=== PATIENT | male | born 1965 | race Caucasian/White ===

== ENCOUNTER 2017-03-24 18:42 | Emergency (ER) | payer OTHER ==
[~2017-03-24] VITALS: Ht 172.7 cm; Wt 98.3 kg
[~2017-03-24 18:42] MED LIST: AFRINWC; ALBUAER2 INH; ASPI81TA21 PO; BACL1TAB PO; DULO60CA44 PO; FLUT110A INH; FLV1 PO; INSDGIPEN SC; LPT40 PO; LSN40 PO; MAGNSUS5 PO; MORP1TAB11 PO; MULT-506 PO; NRV/10 PO; NVLGIPEN SC; OXYC-106 PO; OXYC-88 PO; PRT40 PO; SERT100T PO; THM50 PO
[2017-03-24 18:59] VITALS: TEMP 37; Ht 172.7 cm; Wt 98.3 kg
[2017-03-24] MEDS ORDERED: FLVHFA110 INH (19:20)
[2017-03-24] MEDS ORDERED: SITA25TA PO (19:20)
[2017-03-24] MEDS ORDERED: INSDGIPEN SC (19:20)
[2017-03-24] MEDS ORDERED: VNTHFA/IN INH (19:20)
[2017-03-24] MEDS ORDERED: MOML PO (19:20)
[2017-03-24] MEDS ORDERED: FOLI1TAB7 PO (19:20)
[2017-03-24] MEDS ORDERED: THIA1TAB11 PO (19:20)
[2017-03-24] MEDS ORDERED: PANT40TA PO (19:20)
--- NOTE | 2017-03-24 19:36 | DIAGNOSTIC IMAGING REPORT ---
LEFT KNEE 3 VIEWS HISTORY: L knee pain COMPARISON: None. FINDINGS: There is no fracture or dislocation. Mild cartilage space narrowing within the medial compartment of the knee. Chondrocalcinosis. Trace knee effusion. Small tricompartmental marginal osteophytes. No radiopaque foreign bodies. IMPRESSION: 1. No fractures. 2. Mild osteoarthritis. 3. Chondrocalcinosis. 4. Trace knee effusion. Electronically signed by: David Camacho M.D. 03/24/2017 7:34 PM Dictated Date/Time: 03/24/2017 7:33 PM
[2017-03-24] MEDS ORDERED: OXYCODONE/ACETAMINOPHEN 5-325 TAB PO STA (20:54)
--- NOTE | 2017-03-24 22:21 | DIAGNOSTIC IMAGING REPORT ---
LEFT LOWER EXTREMITY VENOUS DOPPLER HISTORY: L knee pain radiation in lower leg; lower leg cramping COMPARISON STUDY: None. FINDINGS: There is normal compressibility, flow, and augmentation within the left lower extremity deep venous system. IMPRESSION: No DVT within the left lower extremity. Electronically signed by: David Camacho M.D. 03/24/2017 10:20 PM Dictated Date/Time: 03/24/2017 10:19 PM
[2017-03-24 22:55] VITALS: BP 136/82; PULSE 76; O2SAT 99
--- NOTE | 2017-03-29 07:39 | EMERGENCY ROOM VISIT NOTE ---
ED Visit Note First contact with patient: 19:03 Chief Complaint: Left knee pain. History of Present Illness: Mr. Martin is a 51-year-old white male who ambulates into the ED complaining of diffuse left knee pain. Historically patient reports he had meniscus surgery performed on his left knee multiple years ago. Patient reports for the last 3-4 weeks he has been having diffuse left knee pain. He has not sought medical attention for his pain. He denies any precipitating traumatic events. Then throughout today he reports his pain increased in intensity; this prompted his ED visit. Currently he places his discomfort over the anterior, lateral and medial portions of the knee. He describes it as a deep achy sensation that becomes sharp with palpation and flexion. He rates his discomfort 8/10. The pain is nonradiating. He reports he has not taken any medications for pain prior to arrival at the hospital today but reports he has been intermittently using over- the-counter NSAIDs without relief of his discomfort. Associated with his pain he also reports he has some pain over the proximal gastrocnemius muscle. He denies any associated symptoms including hip pain, thigh pain, ankle pain, foot weakness/numbness/tingling, skin eruptions, skin color changes, fevers, chills, sweats. Review of Systems: As noted above in history of present illness. 8 body systems were reviewed and found to be negative as noted above. Past Medical History: (1) Anxiety (2) Asthma (3) Benign hypertension (4) Cervical Disk Disease s/p Cervical Fusion (5) Chronic back pain (6) CHRONIC PAIN SYNDROME (7) COPD (chronic obstructive pulmonary disease) (8) Diabetes mellitus type 2 (9) DKA (diabetic ketoacidoses) (10) Gastroesophageal reflux disease (11) Hyperlipidemia (12) Hypersomnia with sleep apnea (13) Major depressive disorder Surgical Problems: (1) H/O colonoscopy (2) H/O hernia repair (3) H/O knee surgery (4) H/O shoulder surgery (5) History of appendectomy (6) History of carpal tunnel surgery Current Medications: Medications Dose Route/Sig Max Daily Dose Days Date Category Januvia (Sitagliptin) Unknown Strength Tab Unknown Dose PO DAILY 03/24/17 Reported Vitamin B1 (Thiamine Mononitrate) 100 Mg Tab 50 Mg PO QAM 03/24/17 Reported Protonix (Pantoprazole Sodium) 40 Mg Tab 40 Mg PO QAM 03/24/17 Reported Folvite (Folic Acid) 1 Mg Tab 1 Tab PO QAM 90 03/24/17 Reported Lantus Solostar (Insulin Glargine) 100 Unit/Ml Inj 35 Units SC QPM 03/24/17 Reported Milk Of Magnesia (Magnesium Hydroxide) 30 Ml Susp 30 Ml PO DAILY PRN 03/24/17 Reported Flovent Hfa (Fluticasone Propionate) 120 Puffs/83961 Mcg Aero 1 Puff INH BID 30 03/24/17 Reported Ventolin Hfa (Albuterol) 200 Puffs/45843 Mcg Aers 2 Puffs INH Q4H PRN 03/24/17 Reported Afrin 0.05% Nasal [place] (Oxymetazoline Hcl) 1 Btl [place] 1 Btl NA HS 04/06/16 Reported Lioresal (Baclofen) 10 Mg Tab 20 Mg PO HS PRN 04/06/16 Reported Zoloft (Sertraline Hcl) 100 Mg Tab 50 Mg PO DAILY 04/06/16 Reported Cymbalta (Duloxetine Hcl) 60 Mg Cap 1 Cap PO DAILY 90 04/06/16 Reported Morphine Sulfate Er (Morphine Sulfate) 15 Mg Tab 15 Mg PO Q12 04/06/16 Reported Atorvastatin Calcium (Atorvastatin) 40 Mg Tab 40 Mg PO QPM 04/06/16 Reported Lisinopril 40 Mg Tab 40 Mg PO DAILY 04/06/16 Reported Amlodipine Besylate 10 Mg Tab 10 Mg PO DAILY 04/06/16 Reported Oxycodone/Acetaminophen 10MG/325MG 1 Tab Tab 1 Tab PO QPM PRN 04/06/16 Reported Multivitamin (Multivitamins) Tab 1 Tab PO DAILY 07/20/15 Reported Percocet 10MG/325MG (Oxycodone/Acetaminophen) Tab 1 Tab PO AFTERNOON PRN 07/20/15 Reported Percocet 10MG/325MG (Oxycodone/Acetaminophen) Tab 2 Tabs PO QAM PRN 07/20/15 Reported Ecotrin Or Generic (Aspirin) 81 Mg Tab 81 Mg PO DAILY 12/01/12 Reported Allergies to Medications: Pregabalin, iodinated diagnostic agents. Social History: Patient is not employed; he feels safe in his home environment; he denies tobacco use; he admits to alcohol use. Physical Examination: Vital Signs: Date Time Temp Pulse Resp B/P Pulse Ox O2 Delivery O2 Flow Rate FiO2 03/24/17 22:55 76 16 136/82 99 03/24/17 20:39 98 16 117/64 96 Room Air 03/24/17 18:59 37.0 110 20 149/82 96 Room Air GENERAL: 51-year-old male in mild to moderate distress due to pain, nontoxic- appearing, afebrile and hemodynamically stable. NEUROLOGICAL: Awake, alert and oriented to person, place and time. Answering questions appropriately and following commands. Normal gait. Good hand eye coordination. No focal motor sensory deficits. SKIN: Warm, dry and pink. No soft tissue eruptions or trauma noted. LEFT LOWER LEG: No gross bony deformity. No tenderness over the hip, thigh, ankle or foot. Mild tenderness with swelling over the anterior aspect of the knee. Negative ballottement test. Negative patellar apprehension test. No laxity of the collateral or cruciate ligaments. Decreased range of motion in flexion to less than 90. Loretta's test was attempted but I did not feel was accurate. I do not feel any clicking and popping but he was not able to relax during the test. There is mild tenderness in the gastrocnemius but I do not appreciate any swelling or ecchymosis. No calf tenderness or cords. Full range of motion and muscle strength in plantar flexion and dorsiflexion of the ankles. Distal neurovascular statuses are intact and equal bilaterally. ED Course: Patient is assessed as noted above. Left Knee X-Rays: Were read by myself and the radiologist showing no acute fractures or dislocations, mild osteoarthritis, chondrocalcinosis and a trace knee effusion. Left Lower Leg Venous Doppler Ultrasound: Was reviewed by myself and read by the radiologist showing no deep vein thrombus. Patient was given 2 Percocet 5/325 mg tablets by mouth for pain. Patient was placed in a knee immobilizer and instructed on nonweight bearing crutch use. Patient was educated about tonight's findings and instructed on his treatment plan; he verbalizes understanding and agreement with this plan. Clinical Impression: Left knee pain. Disposition: Patient discharged home in stable condition accompanied by his ; prior to departure he was reassessed and subjectively reported he was feeling better and rated his discomfort 2/10. Plan: I did review the patient's medical record list and he was on double narcotic prescriptions so encouraged him to use his current prescriptions as needed for pain. Additionally patient was encouraged use ice for pain and swelling and the knee immobilizer and crutches for nonweightbearing ambulation. Patient was encouraged to follow-up with pre certification specialist if no better in 7 -10 days. Patient was encouraged return ED for worsening/uncontrolled pain, uncontrolled swelling, leg weakness/numbness/tingling or any new/concerning symptoms.
== END 2017-03-24 22:56 | disposition home or self-care (01) ==
LOC: C.EDB 18:42 → C.EDD 22:56
DX: M25.562 Pain in left knee (principal); F41.9 Anxiety disorder, unspecified; J45.909 Unspecified asthma, uncomplicated; I10 Essential (primary) hypertension; M50.90 Cervical disc disorder, unspecified, unspecified cervical region; G89.4 Chronic pain syndrome; J44.9 Chronic obstructive pulmonary disease, unspecified; E11.9 Type 2 diabetes mellitus without complications; K21.9 Gastro-esophageal reflux disease without esophagitis; E78.5 Hyperlipidemia, unspecified; G47.10 Hypersomnia, unspecified; G47.30 Sleep apnea, unspecified; F32.9 Major depressive disorder, single episode, unspecified; Z79.4 Long term (current) use of insulin; Z79.82 Long term (current) use of aspirin; Z79.899 Other long term (current) drug therapy

== ENCOUNTER → 2017-04-13 | Outpatient (CLI) | payer OTHER ==
[~2017-04-13] MED LIST changes: -ALBUAER2 INH; +CEPH500C2 PO; +FENT75DI2 TOP; -FLUT110A INH; -FLV1 PO; +FLVHFA110 INH; +FOLI1TAB7 PO; +HYDR-5688 PO; -MAGNSUS5 PO; +MOML PO; -NVLGIPEN SC; +PANT40TA PO; +POLY1POW2 PO; -PRT40 PO; +SITA25TA PO; +SULF800T23 PO; +THIA1TAB11 PO; -THM50 PO; +VNTHFA/IN INH
[2017-04-13 19:58] LABS: SYNOVIAL FLUID APPEARANCE CLOUDY; SYNOVIAL FLUID COLOR YELLOW; SYNOVIAL FLUID MONONUC RELAT 70.3 %; SYNOVIAL FLUID POLYNUC RELAT 29.7 %
== END | disposition home or self-care (01) ==
LOC: C.LAB 18:11
PROVIDERS: ATTEND Physician Assistant
DX: M25.562 Pain in left knee (principal)

== ENCOUNTER 2017-06-26 11:48 | Emergency (ER) | payer OTHER ==
[~2017-06-26] VITALS: Ht 172.7 cm; Wt 111.8 kg
[~2017-06-26 11:48] MED LIST changes: -CEPH500C2 PO; -FENT75DI2 TOP; -HYDR-5688 PO; -POLY1POW2 PO; -SULF800T23 PO
[2017-06-26 11:52] VITALS: TEMP 36.8; Ht 172.7 cm; Wt 111.8 kg
[2017-06-26] MEDS ORDERED: CEFTRIAXONE SOD INJ 1 GM ADDVIAL IV STA (12:13)
[2017-06-26] MEDS ORDERED: KETOROLAC TROMETHAMINE 30 MG/ML VIAL IV STA (12:13)
[2017-06-26] MEDS ORDERED: FENT75DI2 TOP (12:22)
[2017-06-26] MEDS ORDERED: POLY1POW2 PO (12:22)
[2017-06-26 12:43] LABS: BASO % 0.3 %; BASO ABS # 0.03 K/uL (0-0.2); COMPLETE YES; EOS % 1.4 %; HEMATOCRIT 36.4 % (42-52); IG% 0.3 %; LYMPH ABS # 1.81 K/uL (1.2-3.4); MEAN CELL VOLUME 91.7 fL (80-100); MEAN CORPUSCULAR HEMOGLOBIN 32.2 pg (25-34); MEAN CORPUSCULAR HGB CONC 35.2 g/dl (32-36); MONO % 7.6 %; NEUT % 73.4 %; PLATELET COUNT 173 K/uL (130-400); RED BLOOD COUNT 3.97 M/uL (4.7-6.1); WHITE BLOOD COUNT 10.62 K/uL (4.8-10.8)
[2017-06-26 12:59] LABS: BUN/CREATININE RATIO 19.1 (10-20); CREATININE 1.1 mg/dl (0.60-1.40)
--- NOTE | 2017-06-26 13:09 | DIAGNOSTIC IMAGING REPORT ---
CT FACIAL BONES-MXILLOFAC WITHOUT CT DOSE: 315.56 mGy.cm CLINICAL HISTORY: Right-sided facial cellulitis. Swelling. COMPARISON STUDY: No previous studies for comparison. TECHNIQUE: Helical images were acquired in the transverse plane. The study was reviewed and analyzed on the independent 3-D workstation. A dose lowering technique was utilized adhering to the principles of ALARA. The study was performed without intravenous contrast due to a contrast allergy. There is a prominent intraparotid lymph node on the right. No mucosal space masses are visualized on this noncontrast study. There is scattered nonpathologically enlarged cervical lymph nodes. There is skin thickening in the right periauricular region. There are no fluid collections to indicate an abscess. No fractures are visualized. No destructive lesions are evident. The mastoid air cells are well aerated. The middle ear cavities appear well aerated. The frontal sinuses appear well aerated. There is mild bilateral maxilla sinus mucosal thickening. There is opacification of a single left-sided ethmoid air cell There is mild adenoidal hypertrophy IMPRESSION: 1. Right-sided periauricular skin thickening and subcutaneous edema, consistent with the clinical history of cellulitis. No evidence of abscess on this noncontrast study. 2. Mild adenoidal hypertrophy Electronically signed by: Gm Montesinos M.D. 06/26/2017 1:08 PM Dictated Date/Time: 06/26/2017 1:03 PM
--- NOTE | 2017-06-26 13:19 | EMERGENCY ROOM VISIT NOTE ---
ED Visit Note First contact with patient: 12:02 I have personally seen and evaluated the patient with the physician purchasing assistant. I agree with the diagnostic/management decisions and have personally been involved in these decisions and agree with the diagnosis.
[2017-06-26] MEDS ORDERED: HYDR-5688 PO (13:29)
[2017-06-26] MEDS ORDERED: CEPH500C2 PO (13:29)
[2017-06-26] MEDS ORDERED: SULF800T23 PO (13:29)
--- NOTE | 2017-06-26 13:30 | EMERGENCY ROOM VISIT NOTE ---
History First contact with patient: 12:02 Chief Complaint: INFECTION Stated Complaint: INFECTION Nursing Triage Summary: right facial redness/edema. History of Present Illness The patient is a 52 year old male who presents to the Emergency Room with complaints of infection on the right side of his face. The patient states for 5 days ago he noticed a pimple behind his right ear. He states he got a little bit larger and started draining so he was squeezing it. The patient states that it has slowly gotten larger and now he has swelling to his face. The patient denies any fever. The patient denies any history of MRSA but he has a grandson who had MRSA in the past. The patient is diabetic which is why he came to the emergency room. Review of Systems 10 system review was performed and was negative unless stated otherwise history of present illness. Past Medical/Surgical History Medical Problems: (1) Anxiety (2) Asthma (3) Benign hypertension (4) Cervical Disk Disease s/p Cervical Fusion (5) Chronic back pain (6) CHRONIC PAIN SYNDROME (7) COPD (chronic obstructive pulmonary disease) (8) Diabetes mellitus type 2 (9) DKA (diabetic ketoacidoses) (10) Gastroesophageal reflux disease (11) Hyperlipidemia (12) Hypersomnia with sleep apnea (13) Major depressive disorder Surgical Problems: (1) H/O colonoscopy (2) H/O hernia repair (3) H/O knee surgery (4) H/O shoulder surgery (5) History of appendectomy (6) History of carpal tunnel surgery Family History Diabetes mellitus FH: heart disease Hypertension Kidney disease Kidney stones Social History Smoking Status: Former Smoker Alcohol Use: occasionally Drug Use: none Marital Status: Housing Status: lives with significant other Occupation Status: disabled Current/Historical Medications Scheduled Amlodipine Besylate (Amlodipine Besylate), 10 MG PO DAILY Aspirin Enteric Coated (Ecotrin Or Generic), 81 MG PO DAILY Atorvastatin (Atorvastatin Calcium), 40 MG PO QPM Duloxetine Hcl (Cymbalta), 1 CAP PO DAILY Fluticasone Propionate (Flovent Hfa), 1 PUFF INH BID Folic Acid (Folvite), 1 TAB PO QAM Insulin Glargine (Lantus Solostar), 35 UNITS SC QPM Lisinopril (Lisinopril), 40 MG PO DAILY Multivitamin (Multivitamin), 1 TAB PO DAILY Oxymetazoline Hcl (Afrin 0.05% Nasal [place]), 1 BTL NA HS Pantoprazole (Protonix), 40 MG PO QAM Polyethylene Glycol 3350 (Bulk (Polyethylene Glycol 3350), 17 GM PO DAILY Sertraline Hcl (Zoloft), 50 MG PO DAILY Thiamine Mononitrate (Vitamin B1), 50 MG PO QAM Scheduled PRN Albuterol Hfa (Ventolin Hfa), 2 PUFFS INH Q4H PRN for Wheezing Baclofen (Lioresal), 20 MG PO HS PRN for Muscle Spasms Oxycodone/Acetaminophen 10MG/325MG (Percocet 10MG/325MG), 2 TABS PO QAM PRN for Pain Oxycodone/Acetaminophen 10MG/325MG (Percocet 10MG/325MG), 1 TAB PO AFTERNOON PRN for Pain Oxycodone/Acetaminophen 10MG/325MG (Oxycodone/Acetaminophen 10MG/325MG), 1 TAB PO QPM PRN for Pain Miscellaneous Medications Fentanyl (Fentanyl), 25 MCG TOP Physical Exam Vital Signs Date Time Temp Pulse Resp B/P (MAP) Pulse Ox O2 Delivery O2 Flow Rate FiO2 06/26/17 11:52 36.8 93 18 154/82 94 Room Air Physical Exam GENERAL: 52-year-old obese male appears in no acute distress. MENTAL Status: Oriented 3. EARS: Canals clear. TMs without fluid level noted. NECK: Supple, anterior cervical lymphadenopathy noted. Right submandibular lymphadenopathy noted. No carotid bruits noted. FACE: The patient has swelling to the left preauricular area extending over the angle of the mandible, minimal erythema noted. LUNGS: Clear auscultation without wheezes rales or rhonchi. CARDIAC: Regular rate and rhythm with occasional ectopy. Pulses is full and equal throughout. Medical Decision & Procedures ER Provider Diagnostic Interpretation: CT FACIAL BONES-MXILLOFAC WITHOUT CT DOSE: 315.56 mGy.cm CLINICAL HISTORY: Right-sided facial cellulitis. Swelling. COMPARISON STUDY: No previous studies for comparison. TECHNIQUE: Helical images were acquired in the transverse plane. The study was reviewed and analyzed on the independent 3-D workstation. A dose lowering technique was utilized adhering to the principles of ALARA. The study was performed without intravenous contrast due to a contrast allergy. There is a prominent intraparotid lymph node on the right. No mucosal space masses are visualized on this noncontrast study. There is scattered nonpathologically enlarged cervical lymph nodes. There is skin thickening in the right periauricular region. There are no fluid collections to indicate an abscess. No fractures are visualized. No destructive lesions are evident. The mastoid air cells are well aerated. The middle ear cavities appear well aerated. The frontal sinuses appear well aerated. There is mild bilateral maxilla sinus mucosal thickening. There is opacification of a single left-sided ethmoid air cell There is mild adenoidal hypertrophy IMPRESSION: 1. Right-sided periauricular skin thickening and subcutaneous edema, consistent with the clinical history of cellulitis. No evidence of abscess on this noncontrast study. 2. Mild adenoidal hypertrophy Electronically signed by: Gm Montesinos M.D. 06/26/2017 1:08 PM Dictated Date/Time: 06/26/2017 1:03 PM Laboratory Results 06/26/17 12:25 Red Blood Count 3.97, Mean Corpuscular Volume 91.7, Mean Corpuscular Hemoglobin 32.2, Mean Corpuscular Hemoglobin Concent 35.2, Mean Platelet Volume 9.0, Neutrophils (%) (Auto) 73.4, Lymphocytes (%) (Auto) 17.0, Monocytes (%) (Auto) 7.6, Eosinophils (%) (Auto) 1.4, Basophils (%) (Auto) 0.3, Neutrophils # (Auto) 7.79, Lymphocytes # (Auto) 1.81, Monocytes # (Auto) 0.81, Eosinophils # (Auto) 0.15, Basophils # (Auto) 0.03 06/26/17 12:25 Test 06/26/17 12:25 White Blood Count 10.62 K/uL (4.8-10.8) Red Blood Count 3.97 M/uL (4.7-6.1) Hemoglobin 12.8 g/dL (14.0-18.0) Hematocrit 36.4 % (42-52) Mean Corpuscular Volume 91.7 fL (80-100) Mean Corpuscular Hemoglobin 32.2 pg (25-34) Mean Corpuscular Hemoglobin Concent 35.2 g/dl (32-36) Platelet Count 173 K/uL (130-400) Mean Platelet Volume 9.0 fL (7.4-10.4) Neutrophils (%) (Auto) 73.4 % Lymphocytes (%) (Auto) 17.0 % Monocytes (%) (Auto) 7.6 % Eosinophils (%) (Auto) 1.4 % Basophils (%) (Auto) 0.3 % Neutrophils # (Auto) 7.79 K/uL (1.4-6.5) Lymphocytes # (Auto) 1.81 K/uL (1.2-3.4) Monocytes # (Auto) 0.81 K/uL (0.11-0.59) Eosinophils # (Auto) 0.15 K/uL (0-0.5) Basophils # (Auto) 0.03 K/uL (0-0.2) RDW Standard Deviation 45.4 fL (36.4-46.3) RDW Coefficient of Variation 13.7 % (11.5-14.5) Immature Granulocyte % (Auto) 0.3 % Immature Granulocyte # (Auto) 0.03 K/uL (0.00-0.02) Anion Gap 8.0 mmol/L (3-11) Est Creatinine Clear Calc Drug Dose 95.3 ml/min Estimated GFR () 89.0 Estimated GFR (Non- 76.8 BUN/Creatinine Ratio 19.1 (10-20) Calcium Level 9.0 mg/dl (8.5-10.1) Medications Administered Medications (Trade) Dose Ordered Sig/Enzo Route Start Time Stop Time Status Last Admin Dose Admin Ceftriaxone Sodium (Rocephin Inj) 1 gm NOW STAT IV 06/26/17 12:13 06/26/17 12:17 DC 06/26/17 12:32 1 GM Ketorolac Tromethamine (Toradol Inj) 30 mg NOW STAT IV 06/26/17 12:13 06/26/17 12:17 DC 06/26/17 12:32 30 MG ED Course The patient was evaluated. The patient's EMR medication list were reviewed. IV access was obtained. The patient was given Toradol 30 mg IV and Rocephin 1 g IV. CBC and differential and renal profile was ordered. CT of the facial bones was ordered without IV contrast since he is allergic to IV contrast. CT was interpreted by the radiologist with cellulitis of the right preauricular area without any evidence of osteomyelitis or abscess. The patient was informed of the findings. He is also informed that his labs revealed slight anemia but otherwise were unremarkable. The patient wasn't apparently evaluated by Dr. Marroquin who agree with treatment plan. The patient was discharged home in stable condition. Medical Decision Differential diagnosis include facial cellulitis, osteomyelitis, abscess Impression Primary Impression: Facial cellulitis Additional Impression: Anemia Departure Information Dispostion Home / Self-Care Condition GOOD Prescriptions Hydrocodone/Acetaminophen 5MG/325MG ([place] 5MG/325MG) Tab 1-2 TABLET PO Q6 Y for Pain, #20 TAB For Initial Treatment Prov: Anu Burleson PA-C 06/26/17 Cephalexin Monohydrate (KEFLEX) 500 Mg Cap 500 MG PO QID for 10 Days, #40 CAP Prov: Anu Burleson PA-C 06/26/17 Sulfa/Trimethoprim (Bactrim Ds 800MG/160MG) Tab 1 TAB PO BID for 10 Days, #20 TAB Prov: Anu Burleson PA-C 06/26/17 Referrals Gonzalez Salmeron M.D. (MEDICAL) (PCP) Forms HOME CARE DOCUMENTATION FORM, IMPORTANT VISIT INFORMATION, WORK / SCHOOL INSTRUCTIONS Patient Instructions Anemia, Cellulitis - [facility], [facility] Additional Instructions Ibuprofen 600 mg every 6 hours with food for pain. Take Kamiah as needed for more severe pain. Do not drive while taking the Kamiah. Take Keflex and Bactrim as prescribed. Warm compresses to the affected area intermittently to promote draining. Follow-up with your family doctor in 2 days for recheck and also to address your anemia. If symptoms worsen in the interim, return to ER. Problem Qualifiers Additional Impression: Anemia Anemia type: unspecified type Qualified Codes: D64.9 - Anemia, unspecified
[2017-06-26 13:51] VITALS: BP 152/73; PULSE 90; O2SAT 97
== END 2017-06-26 13:53 | disposition home or self-care (01) ==
LOC: C.EDB 11:48 → C.EDC 13:53
DX: L03.211 Cellulitis of face (principal); D64.9 Anemia, unspecified; E11.9 Type 2 diabetes mellitus without complications; Z79.4 Long term (current) use of insulin; I10 Essential (primary) hypertension; E78.5 Hyperlipidemia, unspecified; J44.9 Chronic obstructive pulmonary disease, unspecified; Z79.899 Other long term (current) drug therapy

== ENCOUNTER → 2018-03-02 | Outpatient (CLI) | payer OTHER ==
[~2018-03-02] MED LIST changes: +FENT75DI2 TOP; -FOLI1TAB7 PO; +FOLI1TAB8 PO; -MOML PO; -MORP1TAB11 PO; +POLY1POW2 PO; -SITA25TA PO
== END | disposition home or self-care (01) ==
LOC: C.LAB 19:08
DX: Z02.83 Encounter for blood-alcohol and blood-drug test (principal)

== ENCOUNTER 2019-05-05 11:36 | Inpatient (IN) ==
--- OUTSIDE RECORDS SUMMARY | 2019-05-05 11:39 | External Medical Summary | Continuity of Care Document ---
:1965 Author Name Wu Ureña Address Unavailable Unavailable , Care Team Providers Name Role Phone Jaswinder Galvan M.D. Unavailable [email or web address] Unavailable Unavailable Unavailable Unavailable Unavailable Problems Active medical history not documented Allergies and Adverse Reactions Allergy history not documented Medications Medications not documented Procedures Procedures not documented Immunizations Immunizations not documented Plan of Treatment Planned Observations Planned Goals not documented Results No Known Results Results not documented
[2019-05-05] MEDS ORDERED: NALOXONE HCL 0.4 MG/1 ML VIAL/CARP IV STA ×2 (11:51→12:27)
--- NOTE | 2019-05-05 12:24 | XRay Report ---
SINGLE VIEW CHEST CLINICAL HISTORY: Sepsis. FINDINGS: An AP, portable, upright chest radiograph is compared to study dated 04/06/2016. The examina tion is degraded by portable technique and patient rotation. The cardiomediastinal silhouette is unr emarkable. There is elevation of the right hemidiaphragm and bibasilar atelectasis. No large pleural effusion or pneumothorax is seen. The skeletal structures are osteopenic. The bony thorax is grossly intact. Fusion hardware is noted in the lower cervical spine. IMPRESSION: 1. There is no acute cardiopulmonary abnormality. 2. Elevation of the right hemidiaphragm and bibasilar atelectasis. Electronically signed by: Tate Ta M.D. 05/05/2019 12:22 PM
[2019-05-05 13:02] LABS: Basophils # (auto) 0.03 K/uL (0-0.2); Basophils % (auto) 0.3 %; Eosinophils # (auto) 0.09 K/uL (0-0.5); Eosinophils % (auto) 0.8 %; Hematocrit (blood only) 34.3 % (42-52); Immature Granulocytes # (auto) 0.06 K/uL (0.00-0.02); Immature Granulocytes % (auto) 0.5 %; Lymphocytes % (auto) 21.3 %; Mean Corpuscular Volume 92.2 fL (80-100); Mean Platelet Volume 9.2 fL (7.4-10.4); Monocytes # (auto) 1.01 K/uL (0.11-0.59); Monocytes % (auto) 8.6 %; Neutrophils # (auto) 8.03 K/uL (1.4-6.5); Neutrophils % (auto) 68.5 %; Platelet Count 134 K/uL (130-400); RDW Coefficient of Variation 14.7 % (11.5-14.5); RDW Standard Deviation 49.9 fL (36.4-46.3); Red Blood Count 3.72 M/uL (4.7-6.1); White Blood Count 11.72 K/uL (4.8-10.8)
[2019-05-05 13:06] LABS: Base Excess VBG -16.9 mEq/L; Oxygen Saturation VBG 75.3 %; pH VBG 7.17 (7.36-7.41)
[2019-05-05 13:12] LABS: INR 1.1 (0.9-1.1); Partial Thromboplastin Ratio 1.3; Partial Thromboplastin Time 34.5 Seconds (21.0-31.0); Prothrombin Time 10.8 Seconds (9.0-12.0)
[2019-05-05 13:34] LABS: Acetaminophen < 2 ug/ml (10-30); Salicylate 2.7 mg/dl (2.8-20)
--- NOTE | 2019-05-05 13:36 | CT Scan Report ---
CT head/brain wo con CLINICAL HISTORY: 54 years-old Male with alatered. Acutely altered mental status TECHNIQUE: Multiple axial CT images of the head were obtained without contrast. A dose lowering tech nique was utilized adhering to the principles of ALARA. CT DOSE: 1459.56 mGycm COMPARISON: None. FINDINGS: Motion degraded exam. No acute intracranial hemorrhage, midline shift, intracranial mass, hydrocephal us, territorial ischemia or abnormal extra-axial collection. Minimal cerebral vascular calcifications are noted. The calvarium is intact. Minimal mucosal thickening of the ethmoid and maxillary sinuses. Mastoid ai r cells are clear. Soft tissues and orbits are unremarkable. IMPRESSION: Motion degraded exam. No acute intracranial abnormality identified. The above report was generated using voice recognition software. It may contain grammatical, syntax o r spelling errors. Electronically signed by: Suijt Le M.D. 05/05/2019 1:35 PM
[2019-05-05 13:39] LABS: Alanine Aminotransferase 118 U/L (12-78); Albumin Globulin Ratio 0.7 (0.9-2); Albumin Level 3.6 gm/dl (3.4-5.0); Alkaline Phosphatase 94 U/L (45-117); Aspartate Aminotransferase 262 U/L (15-37); BUN Creatinine Ratio 7.8 (10-20); Bilirubin,Total 0.9 mg/dl (0.2-1); Blood Urea Nitrogen 105 mg/dl (7-18); C Reactive Protein 9.37 mg/dl (0-0.29); Calcium 5.4 mg/dl (8.5-10.1); Carbon Dioxide 11 mmol/L (21-32); Chloride 90 mmol/L (98-107); Creatine Kinase MB 91.1 ng/ml (0.5-3.6); Creatinine Clr Calc Pharmacy 7.3 ml/min; Est GFR (African American) 4.3; Est GFR (Non-African American) 3.7; Globulin 5.1 gm/dl (2.5-4.0); Glucose 152 mg/dl (70-99); Potassium 6.5 mmol/L (3.5-5.1); Sodium 126 mmol/L (136-145); Total Protein 8.7 gm/dl (6.4-8.2); Troponin I < 0.015 ng/ml (0-0.045)
[2019-05-05] MEDS ORDERED: CALCIUM GLUCONATE 10% 1,000 MG in SODIUM CHLORIDE 0.9% 50 ML IV STA ×2 (13:40→20:58)
[2019-05-05] MEDS ORDERED: NovoLIN-R INSULIN PER UNIT CHARGE IV STA (13:40)
[2019-05-05] MEDS ORDERED: DEXTROSE 50% 50 ML SYRINGE IV STA (13:40)
[2019-05-05] MEDS ORDERED: SODIUM CHLORIDE 0.9% 1000ML 1,000 ML IV ONE ×2 (13:40→14:42)
[2019-05-05] MEDS ORDERED: PIPERACILLIN/TAZOBACTAM 4.5 GM/120 ML BAG IV ONE (13:43)
[2019-05-05] MEDS ORDERED: PIPERACILL/TAZOBAC CONSULT ACTIVE PRN ×2 (13:43→15:42)
--- NOTE | 2019-05-05 13:54 | CT Scan Report ---
CT SCAN OF THE ABDOMEN AND PELVIS WITHOUT IV CONTRAST CLINICAL HISTORY: General is abdominal pain. Abdominal distention. COMPARISON STUDY: Abdominal CT dated 04/07/2016. TECHNIQUE: CT scan of the abdomen and pelvis is performed from the lung bases to the proximal femora. Images are reviewed in the axial, sagittal, and coronal planes. IV contrast was not administered for this examination as per the referring clinician. Note that the examination was performed in suboptim al fashion without oral and IV contrast. A dose lowering technique was utilized adhering to the princ iples of BHARGAV. CT DOSE: 1083.08 mGycm FINDINGS: Lung bases: The heart is mildly enlarged and without pericardial effusion. There are coronary artery calcifications. There is elevation of the right hemidiaphragm with segmental atelectasis at the right lung base. Subsegmental atelectasis is seen at the left lung base. There is trace right pleural effu alyce. A small hiatal hernia is noted. Liver: The unenhanced liver is enlarged, measuring 21.6 cm in length. The liver is cirrhotic in morph ology, noting hypertrophy of the left lobe and caudate and nodularity of the surface contour. The rosenda er demonstrates diffusely diminished attenuation consistent with hepatic steatosis. There is no intra hepatic biliary ductal dilatation. Gallbladder: The gallbladder is mildly distended. There are layering calcified gallstones. Mild gallb ladder wall thickening is nonspecific. Spleen: The spleen is enlarged, measuring 15.2 cm in length. Pancreas: The unenhanced pancreas is grossly unremarkable. Adrenal glands: Unremarkable. Kidneys: The unenhanced kidneys are normal in size and without hydronephrosis. There are no renal elif culi identified. There is no evidence of contour deforming renal mass lesion. Abdominal vasculature: The abdominal aorta is normal in course and caliber noting mild atheroscleroti c calcification. Bowel: There are postoperative changes from right hemicolectomy with ileocolic anastomosis. No bowel obstruction is seen. Mild to moderate colonic fecal retention is observed. Peritoneum: There is no intraperitoneal free air or abdominal ascites. There is laxity of the ventral abdominal wall and diastases of the rectus musculature. Lymphadenopathy: Prominent upper abdominal and peripancreatic lymph nodes are likely related to 6 chr onic liver disease. Pelvic viscera: The there is median lobe hypertrophy of the prostate gland. The bladder wall is mildl y thickened and trabeculated indicating chronic outlet obstruction. Skeletal structures: There is mild lumbosacral spondylosis. No lytic or blastic lesions are seen. IMPRESSION: 1. Suboptimal examination without oral and IV contrast. 2. The liver is enlarged, cirrhotic in morphology, and shows evidence of steatosis. 3. Splenomegaly. 4. The gallbladder is distended and there are calcified gallstones. Gallbladder wall thickening is no nspecific and may be related to chronic liver disease. Correlate with clinical findings and liver fun ction studies for evidence of acute cholecystitis. Ultrasound should be considered for further assess ment if clinically warranted. 5. There are postoperative changes of right hemicolectomy with ileocolic anastomosis. No bowel obstru ction is identified. 6. Additional findings as above. Electronically signed by: Tate Ta M.D. 05/05/2019 1:53 PM
[2019-05-05 14:33] LABS: Appearance Urine Cloudy (Clear); Bacteria Urine Automated Negative (Negative); Blood Urine 1+ (Negative); Color Urine Dark Yellow; Epithelial Cell Urine Auto 20-30 /lpf (0-5); Glucose Urine UA 1+ (Negative); Ketones Urine Negative (Negative); Leukocyte Esterase Urine 1+ (Negative); Nitrite Urine Negative (Negative); Protein Urine Trace (Negative); Urobilinogen Urine Negative (Negative)
[2019-05-05] MEDS ORDERED: CALCIUM GLUCONATE 10% 10 ML VIAL IV STA (14:52)
[2019-05-05 14:58] LABS: Bilirubin Urine Negative (Negative); Ictotest Urine Negative (Negative)
[2019-05-05 15:04] LABS: Amphetamines+Metham, Urine Neg (Neg); Barbiturates, Urine Neg (Neg); Benzodiazepine, Urine Neg (Neg); Cocaine, Urine Neg (Neg); MDMA (Ecstacy), Urine Neg (Neg); Methadone, Urine Neg (Neg); Opiate, Urine Pos (Neg); Phencyclidine, Urine Neg (Neg)
[2019-05-05 15:12] LABS: Calcium Oxalate Crystals Urine Present (None Prsent)
[2019-05-05 15:13] LABS: Amorphous Sediment Urine Present (None Prsent)
[2019-05-05] MEDS ORDERED: LORazepam 1 MG TAB PO PRN (15:42)
[2019-05-05] MEDS ORDERED: ICU PROTOCOL FOR HYPERGLYCEMIA PRN (15:42)
--- NOTE | 2019-05-05 15:46 | History & Physical Report ---
Date of Service May 05, 2019 Assessment & Plan (1) Metabolic acidosis: (2) Acute kidney failure: (3) Rhabdomyolysis: (4) Acute respiratory failure: (5) Electrolyte abnormality: This is a 54-year-old male who has a significant PMH of HTN, HLD, T2DM, COPD, chronic pain syndrome on chronic opioid, OLEKSANDR, abnormal LFT, tobacco and alcohol abuser presents to [facility] secondary to altered mental status and lethargy x1 day. In ED patient found to be in acute renal failure with BUN 105 and creatinine 13.40. CK elevated at 6880 consistent with rhabdomyolysis Electrolyte derangements include sodium 126, potassium 6.5, CO2 11, ionized ca 0.57, anion gap 26, VBG 7.17 His WBC elevated 11.72, H&H stable and 12.0 and 34.3, platelet is 143 ESR/CRP 83 and 9.37 In ER patient received 1 L IVF, 1 g calcium gluconate, 10 units regular insulin for treatment of hyperkalemia He received IV Zosyn Sepsis still a possibility as he met SIRS criteria on admission with HR and RR. Lactate WNL, Procal 7 Blood cultures pending IV antibiotics administered etiology of rhabdo currently unknown: pt is on statin, also recently started jardiance approx 3 weeks ago, last etoh 05/02 Admitted to ICU - Dr. Kerns contacted Nephrology Dr. Neff consulted IV D5 with 150meq of Bicarb 150cc/hr replace Ca with 2g calcium gluconate monitor UOP may need urgent HD if no significant urine output repeat bmp and ionized ca at 5:30 and again q4hr continue broad-spectrum IV antibiotics with Zosyn MRSA culture NPO trend CK (6) Cholecystitis, chronic: CT Scan: The gallbladder is distended and there are calcified gallstones. Gallbladder wall thickening is nonspecific and may be related to chronic liver disease. Correlate with clinical findings and liver function studies for evidence of acute cholecystitis. Ultrasound should be considered for further assessment if clinically warranted. LFTS elevated but pt also in LUISTIO/Rhabdo Tenderness on exam RUQ US ordered Dr. Barrera consulted: appreciate his input " I believe the thickening in his gallbladder is most likely chronic in nature. There does not appear to be any pericholecystic fluid or significant inflammation. Apparently he does have evidence of cirrhosis. At some point we could check a HIDA scan. Apparently an ultrasound has been ordered. We will follow along with you but I do not think he requires urgent surgical intervention for his gallbladder." (7) Prolonged QT interval: QTC 512ms monitor daily avoid qt prolonging agents (8) HTN (hypertension): Blood pressure has been on low side, likely in setting of LUISITO hold amlodipine and lisinopril for now (9) HLD (hyperlipidemia): Hold statin in setting of rhabdo, LUISITO, elevated LFTS (10) T2DM (type 2 diabetes mellitus): Last A1c 03/04 9.9 On Janumet, Jardiance as outpatient Hold all oral hypoglycemics Consult pharmacy for glycemic management given NPO/Critically ill status Jardiance initiated approx 3 weeks ago - given this would discontinue and avoid SLGT2 drug class (11) Chronic pain syndrome: Continue fentanyl patch, last placed 05/03 hold percocet for now (12) Abnormal LFTs: Elevated likely in setting of rhabdo; however has been elevated in outpatient setting Last AST/ALT 03/04/19 revealed [address] scan/pelvis consistent with cirrhosis morphology of liver and splenomegaly (13) Alcohol abuse: AWSS protocol ativan prn last drink wednesday 05/02 monitor for s/sx of DT Thiamine and folic acid daily (currently ordered IV given npo status) (14) DVT prophylaxis: SCDS for now, patient may need emergent HD and catheter placement, therefore will hold off on chemical prophylaxis at this time Disposition: to be determined Follow up: PCP Dr. Zelaya upon discharge FULL CODE STATUS Patient was seen and examined in collaboration with Dr. Parker, please see addendum Discussed case with and daughter at bedside and answered all questions. They agree with above assessment and tx plan 165 minutes were spent on critical care of the above patient including: obtaining history, reviewing past records, med rec, coordinating with specialists, communicating with family History of Present Illness Chief Complaint: altered mental status and lethargy x 1 day. Primary Care Provider: Roderick Zelaya MD This is a 54-year-old male who has a significant PMH of HTN, HLD, T2DM, COPD, chronic pain syndrome on chronic opioid, OLEKSANDR, abnormal LFT, tobacco and alcohol abuser presents to [facility] secondary to altered mental status and lethargy x1 day. ROS difficult/unable to obtain from patient given current state. Daughter at bedside provided most history. Per daughter family traveled to [place] on Sunday and patient was normal. He was complaining of back pain secondary to a twisting motion that caused increased pain but otherwise in his normal state of health. On Sunday patient became more confused. His fentanyl patch was changed on Sunday. His last alcoholic drink was Sunday. Family noticed difficulty talking, weakness "did not move from the couch." No recent falls or injury. Unsure if additional narcotics were taken, ex cept daughter states he did take 2 of his Percocet on Sunday due to increased back pain. Daughter states his baseline is he is usually active, ambulates w/o assist device, is a daily 4 radha beer drinker. New medications include jardiance 10mg daily approx 2-3 weeks ago. Allergies Allergy/AdvReac Type Severity Reaction Status Date / Time pregabalin Allergy Unknown Tremor Verified 05/05/19 13:11 Iodinated Contrast- Oral and AdvReac Unknown JITTERY Verified 05/05/19 13:11 IV Dye Home Medications Home Medications Medication Instructions Recorded Confirmed Type albuterol sulfate [Ventolin HFA] 2 puff INHALATION QID PRN 05/05/19 05/05/19 History amlodipine 10 mg PO DAILY 05/05/19 05/05/19 History aspirin [Aspir-81] 81 mg PO DAILY 05/05/19 05/05/19 History atorvastatin 40 mg PO HS 05/05/19 05/05/19 History coenzyme Q10 200 mg PO DAILY 05/05/19 05/05/19 History duloxetine 60 mg PO DAILY 05/05/19 05/05/19 History empagliflozin 10 mg PO DAILY 05/05/19 05/05/19 History fentanyl 1 patch TRANSDERMAL Q72H 05/05/19 05/05/19 History folic acid 1 mg PO DAILY 05/05/19 05/05/19 History gabapentin 300 mg PO TID 05/05/19 05/05/19 History lisinopril 40 mg PO DAILY 05/05/19 05/05/19 History multivitamin with minerals 1 tab PO DAILY 05/05/19 05/05/19 History [Multiple Vitamin-Minerals] oxycodone-acetaminophen 1 tab PO Q8H PRN 05/05/19 05/05/19 History oxymetazoline 1 spray INTRANASAL HS PRN 05/05/19 05/05/19 History sitagliptin-metformin 1 tab PO BID 05/05/19 05/05/19 History Past Med/Surg History Medical History T2DM (type 2 diabetes mellitus) MDD (major depressive disorder) (Chronic) HTN (hypertension) (Chronic) HLD (hyperlipidemia) (Chronic) GERD (gastroesophageal reflux disease) (Chronic) Abnormal LFTs (Chronic) Chronic pain syndrome (Chronic) Hypersomnia with sleep apnea (Chronic 12/01/12) COPD (chronic obstructive pulmonary disease) (Chronic) Surgical History H/O shoulder surgery (Chronic) H/O knee surgery (Chronic) History of carpal tunnel surgery (Chronic) History of appendectomy (Chronic) H/O hernia repair (Chronic) Family History Mother Coronary heart disease Diabetes Lung disease Father Coronary heart disease Diabetes Cancer renal cell Social History Preferred Language: Kittitian Communication Ability: Impaired Communication Ability Comment: altered mental status at this time Ict Teacher Required: No Beliefs That Will Affect Care: None marital status: Current Living Situation: Spouse Feels Safe at Home: Yes Smoking Status: Current every day smoker Tobacco Type: cigarettes Cigarettes Per Day: 1 ppd Do You Dip or Chew Tobacco: No Second Hand Exposure: Yes Tobacco Cessation Education Requested by Patient: Yes Hx Alcohol Use: Yes Alcohol type: beer Alcohol Intake Frequency Comment: 4 beers daily Hx Substance Use: Yes substance use type: prescription drug Substance Use Type Other:: On Fentanyl and percocet Last Used Substance Other:: sunday evening percoset. was wearing fentanyl patch Review of Systems Review of Systems: Unobtainable due to cognitive status Physical Exam Physical Exam: Gen: Critically ill, male, + increased resp drive, lying in bed, unable to answer questions approp Head: Normocephalic, Atraumatic Eyes: Sclera normal, no conjunctival injection, PERRLA, EOMI ENT: Gross hearing intact, normal pharynx, mucous membranes dry Neck: supple, no adenopathy, No JVD, no bruit, Resp: Clear to auscultation b/l, no wheeze, rales, rhonchi. increased insp/exp effort, no accessory muscle use CV: Regular rate, regular rhythm, 1/6 MER noted RUSB, no rub, gallop, or ectopy Abd: diminished BS x 4, distended, tender to palpation RUQ, firm Musculoskeletal: Extremities: trace to +1 pretibial edema bilaterally, b/l pedal pulses +1 and equal, b/l chronic venous stasis changes Skin: warm, moist, no rash, negative turgor, cap refill < 2sec Neuro: Alert and oriented x [address], not time, speech mostly normal but doesn't answer approp, cran nerve 2-12 intact grossly : +valdez with coca cola cololred urine Results & Data Vital Signs (Past 12 Hours) Vital Signs Temp Pulse Pulse Resp BP BP Pulse Ox 05/05/19 15:04 36.5 C 91 H 15 132/56 L 93 05/05/19 15:03 84 15 132/56 L 93 05/05/19 15:01 90 21 112/46 L 93 05/05/19 15:00 88 21 93 05/05/19 14:46 91 H 20 108/55 L 93 05/05/19 14:45 92 H 17 93 05/05/19 14:31 91 H 15 132/56 L 93 05/05/19 14:30 91 H 21 93 05/05/19 14:16 87 23 109/49 L 94 05/05/19 14:15 87 20 94 05/05/19 14:05 85 17 91 05/05/19 14:04 84 17 98/47 L 91 05/05/19 14:01 86 17 86 L 05/05/19 14:00 86 86 17 101/61 101/61 91 05/05/19 13:57 85 85 17 92/54 L 92/54 L 91 05/05/19 13:45 84 14 93 05/05/19 13:33 85 12 05/05/19 13:01 86 19 120/52 L 92 05/05/19 13:00 86 20 93 05/05/19 12:46 86 13 114/54 L 92 05/05/19 12:45 85 85 20 114/54 L 91 05/05/19 12:33 84 84 20 91/45 L 91/45 L 93 05/05/19 12:30 85 21 93 05/05/19 12:18 84 29 H 95 05/05/19 12:17 84 27 H 144/51 H 91 05/05/19 12:16 86 86 H 144/51 H 91 05/05/19 12:15 85 26 H 88 L 05/05/19 12:13 36.5 C 86 85 28 H 115/47 L 92 05/05/19 12:09 86 23 69 L 05/05/19 12:06 86 86 22 115/47 L 115/47 L 91 05/05/19 11:41 85 27 H 110/71 91 05/05/19 11:36 36.5 C 85 85 26 H 110/71 110/71 87 L Laboratory Results Short CBC 05/05/19 Range/Units 12:48 WBC 11.72 H (4.8-10.8) K/uL Hgb 12.0 L (14.0-18.0) g/dL Hct 34.3 L (42-52) % Plt Count 134 (130-400) K/uL BMP 05/05/19 12:48 Sodium 126 L Potassium 6.5 H* Chloride 90 L Carbon Dioxide 11 L BUN 105 H Creatinine 13.40 H* Glucose 152 H Calcium 5.4 L* Cardiac Enzymes 05/05/19 05/05/19 Range/Units 12:48 13:54 Total Creatine Kinase 6880 H (39-308) U/L CK-MB (CK-2) 91.1 H (0.5-3.6) ng/ml Troponin I < 0.015 (0-0.045) ng/ml Liver Function 05/05/19 Range/Units 12:48 Total Bilirubin 0.9 (0.2-1) mg/dl AST 262 H (15-37) U/L ALT 118 H (12-78) U/L Alkaline Phosphatase 94 (45-117) U/L Albumin 3.6 (3.4-5.0) gm/dl Urine 05/05/19 Range/Units 14:04 Urine Color Dark Yellow Urine Appearance Cloudy A (Clear) Urine pH 5.0 (4.5-7.5) Ur Specific Rossiter 1.030 (1.000-1.030) Urine Protein Trace H (Negative) Urine Glucose (UA) 1+ H (Negative) Diagnostic Findings CXR: IMPRESSION: 1. There is no acute cardiopulmonary abnormality. 2. Elevation of the right hemidiaphragm and bibasilar atelectasis. Head CT: IMPRESSION: Motion degraded exam. No acute intracranial abnormality identified. Abd/Pelvis CT: IMPRESSION: 1. Suboptimal examination without oral and IV contrast. 2. The liver is enlarged, cirrhotic in morphology, and shows evidence of steatosis. 3. Splenomegaly. 4. The gallbladder is distended and there are calcified gallstones. Gallbladder wall thickening is nonspecific and may be related to chronic liver disease. Correlate with clinical findings and liver function studies for evidence of acute cholecystitis. Ultrasound should be considered for further assessment if clinically warranted. 5. There are postoperative changes of right hemicolectomy with ileocolic anastomosis. No bowel obstruction is identified. 6. Additional findings as above. Medications Administered Discontinued Medications Dextrose (Dextrose 50%) 50 ml IV NOW STA Stop: 05/05/19 13:41 Last Admin: 05/05/19 13:56 Dose: 50 ml Documented by: [id number] Calcium Gluconate 1,000 mg/ (Sodium Chloride) 60 mls @ 240 mls/hr IV NOW STA Stop: 05/05/19 13:54 Last Infusion: 05/05/19 14:44 Dose: 0 mls/hr Documented by: [id number] Admin: 05/05/19 14:10 Dose: 240 mls/hr Documented by: [id number] Sodium Chloride (Nss 1000ml) 1,000 mls @ 999 mls/hr IV .Q1H1M ONE Stop: 05/05/19 14:40 Last Infusion: 05/05/19 14:45 Dose: 0 mls/hr Documented by: [id number] Admin: 05/05/19 13:57 Dose: 999 mls/hr Documented by: [id number] Piperacillin Sod/Tazobactam Sod (Zosyn) 4.5 gm in 120 mls @ 240 mls/hr IV NOW ONE Stop: 05/05/19 14:12 Last Infusion: 05/05/19 14:45 Dose: 0 mls/hr Documented by: [id number] Admin: 05/05/19 13:57 Dose: 240 mls/hr Documented by: [id number] Sodium Chloride (Nss 1000ml) 1,000 mls @ 999 mls/hr IV .Q1H1M ONE Stop: 05/05/19 15:42 Last Admin: 05/05/19 14:45 Dose: 999 mls/hr Documented by: [id number] Insulin Human Regular (Novolin R U-100 Per Unit) 10 units IV NOW STA Stop: 05/05/19 13:41 Last Admin: 05/05/19 13:56 Dose: 10 units Documented by: [id number] Cosigned by: [id number] Naloxone HCl (Narcan) 0.2 mg IV NOW STA Stop: 05/05/19 11:52 Last Admin: 05/05/19 11:52 Dose: 0.2 mg Documented by: [id number] Naloxone HCl (Narcan) 0.2 mg IV NOW STA Stop: 05/05/19 12:28 Last Admin: 05/05/19 12:27 Dose: 0.2 mg Documented by: [id number] ECG Rate (beats per minute): 85 Rhythm: normal sinus Findings: + RBBB and + prolonged QT (qtc 537ms) Code Status & VTE Plan Code Status Full Code VTE Prophylaxis Plan VTE Prophylaxis will be ordered: Yes Supervising Physician Co-Signing Physician Notes Patient is a 54-year-old male with history of hypertension, COPD, chronic pain syndrome, alcohol use disorder and other problems presents with history of altered mental status and lethargy since 1 day duration. History is limited secondary to patient's mental status. Please review HPI for complete details of presentation. Patient was noted to be hypoxic at 87% on room air. ABG is consistent with anion gap metabolic acidosis with respiratory alkalosis. Patient's labs showed hyponatremia, hypochloremia, severe metabolic acidosis with a bicarb of 11, increased anion gap of 26, hyperkalemia potassium 6.5, LUISITO with BUN 105, creatinine 13.4, hypocalcemia 5.4, transaminitis, CK elevated 6880. CT abdomen suggestive of hepatic steatosis, cirrhotic morphology, splenomegaly, gallbladder wall thickening suggestive of possible acute cholecystitis, postoperative changes of right hemicolectomy. CT head showed no acute intracranial abnormality. Chest x-ray showed no acute cardiopulmonary abnormality. Abdominal ultrasound is pending. Patient is admitted in ICU for management of metabolic acidosis, LUISITO, rhabdomyolysis, acute respiratory failure, severe electrolyte imbalances including hypocalcemia, hyponatremia, hyperkalemia, metabolic encephalopathy. Agree with IV fluids with bicarbonate therapy, IV antibiotics, calcium supplementation, n.p.o. for now, closely monitor electrolytes and renal function, thiamine and folic acid supplementation. Budget Examiner, proofsheet corrector were consulted. Possible need for dialysis. Also consulted surgery for possible acute cholecystitis. Appreciate surgery input. Low threshold to intubate the patient if necessary. Monitor for alcohol withdrawal. Family is updated with patient's condition. I personally reviewed the record. Patient is interviewed and examined at bedside. Patient's care is coordinated with Teresa Becerra PA-C. Please refer to the documentation above for details of patient's presentation and for discussion of other issues. (1) Rhabdomyolysis Encounter type: initial encounter Rhabdomyolysis type: traumatic Qualified Code(s): T79.6XXA - Traumatic ischemia of muscle, initial encounter
[2019-05-05] MEDS ORDERED: PHARMACY GLYCEMIC MGMT CONSULT PRN (16:10)
--- NOTE | 2019-05-05 16:21 | Surgery Consultation ---
Date of Consultation May 05, 2019 Assessment & Plan (1) Cholecystitis, chronic: I believe the thickening in his gallbladder is most likely chronic in nature. There does not appear to be any pericholecystic fluid or significant inflammation. Apparently he does have evidence of cirrhosis. At some point we could check a HIDA scan. Apparently an ultrasound has been ordered. We will follow along with you but I do not think he requires urgent surgical intervention for his gallbladder. History of Present Illness Attending Physician: Jose Elias Rios MD History of Present Illness Asked to see the patient for possible cholecystitis. Patient was brought to the emergency room via ambulance with mental status changes and severe lethargy at home. His CK is extremely high and it is felt that the patient has rhabdomyolysis. A CT scan of the abdomen showed a large liver, likely cirrhotic with a thickened gallbladder which is felt to be chronic. He does not have any pericholecystic fluid or inflammation. His alk phos is normal and he has a very mildly elevated AST and ALT. His electrolytes are severely abnormal with a sodium of 126 and a potassium of 6.5. His BUN and creatinine are 105/13.4. He does have a history of right hemicolectomy in the past. Allergies Allergy/AdvReac Type Severity Reaction Status Date / Time pregabalin Allergy Unknown Tremor Verified 05/05/19 13:11 Iodinated Contrast- Oral and AdvReac Unknown JITTERY Verified 05/05/19 13:11 IV Dye Home Medications Home Medications Medication Instructions Recorded Confirmed Type albuterol sulfate [Ventolin HFA] 2 puff INHALATION QID PRN 05/05/19 05/05/19 History amlodipine 10 mg PO DAILY 05/05/19 05/05/19 History aspirin [Aspir-81] 81 mg PO DAILY 05/05/19 05/05/19 History atorvastatin 40 mg PO HS 05/05/19 05/05/19 History coenzyme Q10 200 mg PO DAILY 05/05/19 05/05/19 History duloxetine 60 mg PO DAILY 05/05/19 05/05/19 History empagliflozin 10 mg PO DAILY 05/05/19 05/05/19 History fentanyl 1 patch TRANSDERMAL Q72H 05/05/19 05/05/19 History folic acid 1 mg PO DAILY 05/05/19 05/05/19 History gabapentin 300 mg PO TID 05/05/19 05/05/19 History lisinopril 40 mg PO DAILY 05/05/19 05/05/19 History multivitamin with minerals 1 tab PO DAILY 05/05/19 05/05/19 History [Multiple Vitamin-Minerals] oxycodone-acetaminophen 1 tab PO Q8H PRN 05/05/19 05/05/19 History oxymetazoline 1 spray INTRANASAL HS PRN 05/05/19 05/05/19 History sitagliptin-metformin 1 tab PO BID 05/05/19 05/05/19 History Patient History Medical History T2DM (type 2 diabetes mellitus) MDD (major depressive disorder) (Chronic) HTN (hypertension) (Chronic) HLD (hyperlipidemia) (Chronic) GERD (gastroesophageal reflux disease) (Chronic) Abnormal LFTs (Chronic) Chronic pain syndrome (Chronic) Hypersomnia with sleep apnea (Chronic 12/01/12) COPD (chronic obstructive pulmonary disease) (Chronic) Surgical History H/O shoulder surgery (Chronic) H/O knee surgery (Chronic) History of carpal tunnel surgery (Chronic) History of appendectomy (Chronic) H/O hernia repair (Chronic) Family History Mother Coronary heart disease Diabetes Lung disease Father Coronary heart disease Diabetes Cancer renal cell Social History Preferred Language: Maltese Communication Ability: Impaired Communication Ability Comment: altered mental status at this time Flight Reservations Manager Required: No Beliefs That Will Affect Care: None marital status: Current Living Situation: Spouse Feels Safe at Home: Yes Smoking Status: Current every day smoker Tobacco Type: cigarettes Cigarettes Per Day: 1 ppd Do You Dip or Chew Tobacco: No Second Hand Exposure: Yes Tobacco Cessation Education Requested by Patient: Yes Hx Alcohol Use: Yes Alcohol type: beer Alcohol Intake Frequency Comment: 4 beers daily Hx Substance Use: Yes substance use type: prescription drug Substance Use Type Other:: On Fentanyl and percocet Last Used Substance Other:: sunday evening percoset. was wearing fentanyl patch Review of Systems Review of Systems: All systems reviewed & are unremarkable except as noted in HPI & below Physical Exam Physical Exam: Currently the patient is in the ICU bed he is awake but lethargic and poorly responsive. He has significant tachypnea with a facemask in place. His temperature is low and his heart rate is in the 90s with a normal blood pressure. He appears to be in mild respiratory distress. His abdomen is very protuberant and difficult to assess with his breathing but appears to be soft. He does have some right upper quadrant discomfort to palpation. He does have urine output which is brown with sediment. Results & Data Vital Signs (Past 12 Hours) Vital Signs Temp Pulse Pulse Resp BP BP Pulse Ox 05/05/19 16:00 92 H 116/60 91 05/05/19 15:33 36.4 C L 92 H 101/56 L 91 05/05/19 15:04 36.5 C 91 H 15 132/56 L 93 05/05/19 15:03 84 15 132/56 L 93 05/05/19 15:01 90 21 112/46 L 93 05/05/19 15:00 88 21 93 05/05/19 14:46 91 H 20 108/55 L 93 05/05/19 14:45 92 H 17 93 05/05/19 14:31 91 H 15 132/56 L 93 05/05/19 14:30 91 H 21 93 05/05/19 14:16 87 23 109/49 L 94 05/05/19 14:15 87 20 94 05/05/19 14:05 85 17 91 05/05/19 14:04 84 17 98/47 L 91 05/05/19 14:01 86 17 86 L 05/05/19 14:00 86 86 17 101/61 101/61 91 05/05/19 13:57 85 85 17 92/54 L 92/54 L 91 05/05/19 13:45 84 14 93 05/05/19 13:33 85 12 05/05/19 13:01 86 19 120/52 L 92 05/05/19 13:00 86 20 93 05/05/19 12:46 86 13 114/54 L 92 05/05/19 12:45 85 85 20 114/54 L 91 05/05/19 12:33 84 84 20 91/45 L 91/45 L 93 05/05/19 12:30 85 21 93 05/05/19 12:18 84 29 H 95 05/05/19 12:17 84 27 H 144/51 H 91 05/05/19 12:16 86 86 H 144/51 H 91 05/05/19 12:15 85 26 H 88 L 05/05/19 12:13 36.5 C 86 85 28 H 115/47 L 92 05/05/19 12:09 86 23 69 L 05/05/19 12:06 86 86 22 115/47 L 115/47 L 91 05/05/19 11:41 85 27 H 110/71 91 05/05/19 11:36 36.5 C 85 85 26 H 110/71 110/71 87 L
[2019-05-05] MEDS: SODIUM BICARBONATE 8.4% 150 MEQ in DEXTROSE 5% 1,000 ML IV SCH ×2 (16:30→21:12)
[2019-05-05] MEDS ORDERED: CARBOHYDRATES FOR HYPOGLYCEMIA PO PRN (16:45)
[2019-05-05] MEDS ORDERED: GLUCOSE 10 TABS/TUBE PO PRN (16:45)
[2019-05-05] MEDS ORDERED: GLUCAGON FOR INJ 1 MG VIAL SQ PRN (16:45)
[2019-05-05] MEDS ORDERED: DEXTROSE 50% 50 ML SYRINGE IV PRN (16:45)
[2019-05-05] MEDS ORDERED: GLUCOSE 40% GEL 15 GM TUBE PO PRN (16:45)
[2019-05-05] MEDS: FOLIC ACID 1 MG in SYRINGE 9.8 ML IV SCH (16:49)
[2019-05-05] MEDS: THIAMINE HCL 100 MG in SYRINGE 9 ML IV SCH (16:49)
[2019-05-05] MEDS ORDERED: Nursing to Pharmacy Communication ONE ×2 (16:56→18:06)
[2019-05-05] MEDS ORDERED: fentaNYL 25 MCG/HR TDSY TD SCH (17:00)
--- NOTE | 2019-05-05 17:00 | Critical Care Consultation ---
Date of Consultation May 05, 2019 Assessment & Plan (1) Acute kidney failure: Await nephrology consult. Continue volume expansion and bicarb drip and monitor creatinine and potassium May need dialysis (2) Rhabdomyolysis: Continue bicarb drip and monitor CK (3) Cirrhosis of liver: Avoid hepatotoxins, will need counseling on abstinence from alcohol (4) Hypersomnia with sleep apnea: Unclear at this time whether patient uses CPAP or not History of Present Illness Reason for Consultation: Renal failure, rhabdomyolysis, critical care evaluation and management Requesting Physician: Dr. Jose Ramsay Attending Physician: Jose Elias Rios MD History of Present Illness Patient is a 54-year-old man with a history of type 2 diabetes, hypertension, obstructive sleep apnea chronic alcohol and tobacco abuse and hepatic cirrhosis who presented to the emergency room today with a 1 day history of lethargy weakness and altered mental status. He was found to be acute kidney failure with creatinine of 13 and hyperkalemic with potassium of 6.5 and rhabdomyolysis was also present with a CK of 6000. Nephrology consultation is been requested. CT of the abdomen showed gallbladder wall thickening without pericholecystic fluid and surgery consultation was requested for evaluation for possible cholecystitis. Patient has thus far been given 2 L of normal saline and we are awaiting bicarb drip. He was given a dose of Zosyn. Allergies Allergy/AdvReac Type Severity Reaction Status Date / Time pregabalin Allergy Unknown Tremor Verified 05/05/19 13:11 Iodinated Contrast- Oral and AdvReac Unknown JITTERY Verified 05/05/19 13:11 IV Dye Home Medications Home Medications Medication Instructions Recorded Confirmed Type albuterol sulfate [Ventolin HFA] 2 puff INHALATION QID PRN 05/05/19 05/05/19 History amlodipine 10 mg PO DAILY 05/05/19 05/05/19 History aspirin [Aspir-81] 81 mg PO DAILY 05/05/19 05/05/19 History atorvastatin 40 mg PO HS 05/05/19 05/05/19 History coenzyme Q10 200 mg PO DAILY 05/05/19 05/05/19 History duloxetine 60 mg PO DAILY 05/05/19 05/05/19 History empagliflozin 10 mg PO DAILY 05/05/19 05/05/19 History fentanyl 1 patch TRANSDERMAL Q72H 05/05/19 05/05/19 History folic acid 1 mg PO DAILY 05/05/19 05/05/19 History gabapentin 300 mg PO TID 05/05/19 05/05/19 History lisinopril 40 mg PO DAILY 05/05/19 05/05/19 History multivitamin with minerals 1 tab PO DAILY 05/05/19 05/05/19 History [Multiple Vitamin-Minerals] oxycodone-acetaminophen 1 tab PO Q8H PRN 05/05/19 05/05/19 History oxymetazoline 1 spray INTRANASAL HS PRN 05/05/19 05/05/19 History sitagliptin-metformin 1 tab PO BID 05/05/19 05/05/19 History Patient History Medical History T2DM (type 2 diabetes mellitus) MDD (major depressive disorder) (Chronic) HTN (hypertension) (Chronic) HLD (hyperlipidemia) (Chronic) GERD (gastroesophageal reflux disease) (Chronic) Abnormal LFTs (Chronic) Chronic pain syndrome (Chronic) Hypersomnia with sleep apnea (Chronic 12/01/12) COPD (chronic obstructive pulmonary disease) (Chronic) Surgical History H/O shoulder surgery (Chronic) H/O knee surgery (Chronic) History of carpal tunnel surgery (Chronic) History of appendectomy (Chronic) H/O hernia repair (Chronic) Family History Mother Coronary heart disease Diabetes Lung disease Father Coronary heart disease Diabetes Cancer renal cell Social History Preferred Language: Ethiopian Communication Ability: Impaired Communication Ability Comment: altered mental status at this time [employer] Super[employer] Required: No Beliefs That Will Affect Care: None marital status: Current Living Situation: Spouse Feels Safe at Home: Yes Smoking Status: Current every day smoker Tobacco Type: cigarettes Cigarettes Per Day: 1 ppd Do You Dip or Chew Tobacco: No Second Hand Exposure: Yes Tobacco Cessation Education Requested by Patient: Yes Hx Alcohol Use: Yes Alcohol type: beer Alcohol Intake Frequency Comment: 4 beers daily Hx Substance Use: Yes substance use type: prescription drug Substance Use Type Other:: On Fentanyl and percocet Last Used Substance Other:: sunday evening percoset. was wearing fentanyl patch Review of Systems Review of Systems: Unobtainable due to reduced consciousness Physical Exam Constitutional: WD/WN, vitals as above Obese, lethargic Eyes: PERRL, conjunctivae normal, anicteric sclerae Neck: trachea midline, no thyromegaly Thick, stocky, no JVD Respiratory: Auscultation: lungs clear to auscultation bilaterally Cardiovascular: RRR, no murmur, no edema Gastrointestinal (Abdomen): Obese, soft, mild diffuse tenderness, no peritoneal signs Musculoskeletal: No cyanosis clubbing or edema Skin: No rash petechia or purpura Neurologic: Lethargic but arousable, moaning, no focality appreciated Genitourinary: Fitzgerald catheter in place urine appears concentrated Results & Data Vital Signs (Past 12 Hours) Vital Signs Temp Pulse Pulse Resp BP BP Pulse Ox 05/05/19 16:00 36.4 C L 92 H 93 H 24 116/60 116/60 91 05/05/19 15:33 36.4 C L 92 H 101/56 L 91 05/05/19 15:04 36.5 C 91 H 15 132/56 L 93 05/05/19 15:03 84 15 132/56 L 93 05/05/19 15:01 90 21 112/46 L 93 05/05/19 15:00 88 21 93 05/05/19 14:46 91 H 20 108/55 L 93 05/05/19 14:45 92 H 17 93 05/05/19 14:31 91 H 15 132/56 L 93 05/05/19 14:30 91 H 21 93 05/05/19 14:16 87 23 109/49 L 94 05/05/19 14:15 87 20 94 05/05/19 14:05 85 17 91 05/05/19 14:04 84 17 98/47 L 91 05/05/19 14:01 86 17 86 L 05/05/19 14:00 86 86 17 101/61 101/61 91 05/05/19 13:57 85 85 17 92/54 L 92/54 L 91 05/05/19 13:45 84 14 93 05/05/19 13:33 85 12 05/05/19 13:01 86 19 120/52 L 92 05/05/19 13:00 86 20 93 05/05/19 12:46 86 13 114/54 L 92 05/05/19 12:45 85 85 20 114/54 L 91 05/05/19 12:33 84 84 20 91/45 L 91/45 L 93 05/05/19 12:30 85 21 93 05/05/19 12:18 84 29 H 95 05/05/19 12:17 84 27 H 144/51 H 91 05/05/19 12:16 86 86 H 144/51 H 91 05/05/19 12:15 85 26 H 88 L 05/05/19 12:13 36.5 C 86 85 28 H 115/47 L 92 05/05/19 12:09 86 23 69 L 05/05/19 12:06 86 86 22 115/47 L 115/47 L 91 05/05/19 11:41 85 27 H 110/71 91 05/05/19 11:36 36.5 C 85 85 26 H 110/71 110/71 87 L Laboratory Results 05/05/19 05/05/19 05/05/19 Range/Units 16:42 16:42 15:50 WBC (4.8-10.8) K/uL RBC (4.7-6.1) M/uL Hgb (14.0-18.0) g/dL Hct (42-52) % MCV (80-100) fL MCH (25-34) pg MCHC (32-36) g/dL RDW Std Deviation (36.4-46.3) fL RDW Coeff of Katherine (11.5-14.5) % Plt Count (130-400) K/uL MPV (7.4-10.4) fL Immature Gran % (Auto) % Neut % (Auto) % Lymph % (Auto) % [place] % (Auto) % Eos % (Auto) % Baso % (Auto) % Immature Gran # (Auto) (0.00-0.02) K/uL Neut # (Auto) (1.4-6.5) K/uL Lymph # (Auto) (1.2-3.4) K/uL [place] # (Auto) (0.11-0.59) K/uL Eos # (Auto) (0-0.5) K/uL Baso # (Auto) (0-0.2) K/uL ESR (0-14) mm/hr PT (9.0-12.0) Seconds INR (0.9-1.1) APTT (21.0-31.0) Seconds PTT Ratio VBG pH (7.36-7.41) VBG pCO2 (38-50) mmHg VBG pO2 mmHg VBG HCO3 mmol/L VBG O2 Saturation % VBG Base Excess mEq/L Barometric Pressure mm/Hg Sodium Pending (136-145) mmol/L Potassium Pending (3.5-5.1) mmol/L Chloride Pending (98-107) mmol/L Carbon Dioxide Pending (21-32) mmol/L Anion Gap Pending (3-11) BUN Pending (7-18) mg/dl Creatinine Pending (0.6-1.4) mg/dl Est Cr Clr Drug Dosing Pending ml/min Est GFR ( Amer) Pending Est GFR (Non-Af Amer) Pending BUN/Creatinine Ratio Pending (10-20) Glucose Pending (70-99) mg/dl POC Glucose (70-99) Lactate (0.4-2.0) mmol/L Calcium Pending (8.5-10.1) mg/dl Ionized Calcium Pending Magnesium (1.8-2.4) mg/dl Total Bilirubin (0.2-1) mg/dl AST (15-37) U/L ALT (12-78) U/L Alkaline Phosphatase (45-117) U/L Total Creatine Kinase (39-308) U/L CK-MB (CK-2) (0.5-3.6) ng/ml Troponin I (0-0.045) ng/ml C-Reactive Protein (0-0.29) mg/dl Total Protein (6.4-8.2) gm/dl Albumin (3.4-5.0) gm/dl Globulin (2.5-4.0) gm/dl Albumin/Globulin Ratio (0.9-2) Procalcitonin (0-0.5) ng/ml Urine Color Urine Appearance (Clear) Urine pH (4.5-7.5) Ur Specific [place] (1.000-1.030) Urine Protein (Negative) Urine Glucose (UA) (Negative) Urine Ketones (Negative) Urine Blood (Negative) Urine Nitrite (Negative) Urine Bilirubin (Negative) Urine Urobilinogen (Negative) Ur Leukocyte Esterase (Negative) Urine WBC (Auto) (0-5) /hpf Urine RBC (Auto) (0-4) /hpf U Hyaline Cast (Auto) (0-5) /lpf U Epithel Cells (Auto) (0-5) /lpf Urine Bacteria (Auto) (Negative) Urine Crystals Calcium Oxalate Crystal (None Prsent) Amorphous Sediment (None Prsent) Nasal Screen MRSA (PCR) Pending Salicylates (2.8-20) mg/dl Urine Opiates Screen (Neg) U Codeine Confrm GC/MS Ur Morphine (GC/MS) Ur Hydrocodone (GC/MS) Ur Norhydrocodone Ur Noroxycodone Urine Oxycodone (GC/MS) U Oxymorphone GC/MS Ur Methadone, Qual (Neg) Ur Hydromorphone (GC/MS) Acetaminophen (10-30) ug/ml Urine Barbiturates (Neg) Ur Phencyclidine (PCP) (Neg) U Amphetamin/Meth Scrn (Neg) MDMA (Ecstasy) Screen (Neg) U Benzodiazepines Scrn (Neg) Ur Cocaine Metabolite (Neg) U Marijuana (THC) Screen (Neg) Ethyl Alcohol mg/dL (0-3) mg/dl 05/05/19 05/05/19 05/05/19 Range/Units 14:17 14:04 14:04 WBC (4.8-10.8) K/uL RBC (4.7-6.1) M/uL Hgb (14.0-18.0) g/dL Hct (42-52) % MCV (80-100) fL MCH (25-34) pg MCHC (32-36) g/dL RDW Std Deviation (36.4-46.3) fL RDW Coeff of Katherine (11.5-14.5) % Plt Count (130-400) K/uL MPV (7.4-10.4) fL Immature Gran % (Auto) % Neut % (Auto) % Lymph % (Auto) % [place] % (Auto) % Eos % (Auto) % Baso % (Auto) % Immature Gran # (Auto) (0.00-0.02) K/uL Neut # (Auto) (1.4-6.5) K/uL Lymph # (Auto) (1.2-3.4) K/uL [place] # (Auto) (0.11-0.59) K/uL Eos # (Auto) (0-0.5) K/uL Baso # (Auto) (0-0.2) K/uL ESR (0-14) mm/hr PT (9.0-12.0) Seconds INR (0.9-1.1) APTT (21.0-31.0) Seconds PTT Ratio VBG pH (7.36-7.41) VBG pCO2 (38-50) mmHg VBG pO2 mmHg VBG HCO3 mmol/L VBG O2 Saturation % VBG Base Excess mEq/L Barometric Pressure mm/Hg Sodium (136-145) mmol/L Potassium (3.5-5.1) mmol/L Chloride (98-107) mmol/L Carbon Dioxide (21-32) mmol/L Anion Gap (3-11) BUN (7-18) mg/dl Creatinine (0.6-1.4) mg/dl Est Cr Clr Drug Dosing ml/min Est GFR ( Amer) Est GFR (Non-Af Amer) BUN/Creatinine Ratio (10-20) Glucose (70-99) mg/dl POC Glucose (70-99) Lactate (0.4-2.0) mmol/L Calcium (8.5-10.1) mg/dl Ionized Calcium 0.57 L* Magnesium (1.8-2.4) mg/dl Total Bilirubin (0.2-1) mg/dl AST (15-37) U/L ALT (12-78) U/L Alkaline Phosphatase (45-117) U/L Total Creatine Kinase (39-308) U/L CK-MB (CK-2) (0.5-3.6) ng/ml Troponin I (0-0.045) ng/ml C-Reactive Protein (0-0.29) mg/dl Total Protein (6.4-8.2) gm/dl Albumin (3.4-5.0) gm/dl Globulin (2.5-4.0) gm/dl Albumin/Globulin Ratio (0.9-2) Procalcitonin (0-0.5) ng/ml Urine Color Dark Yellow Urine Appearance Cloudy A (Clear) Urine pH 5.0 (4.5-7.5) Ur Specific [place] 1.030 (1.000-1.030) Urine Protein Trace H (Negative) Urine Glucose (UA) 1+ H (Negative) Urine Ketones Negative (Negative) Urine Blood 1+ H (Negative) Urine Nitrite Negative (Negative) Urine Bilirubin Negative (Negative) Urine Urobilinogen Negative (Negative) Ur Leukocyte Esterase 1+ H (Negative) Urine WBC (Auto) 1-5 (0-5) /hpf Urine RBC (Auto) 10-30 H (0-4) /hpf U Hyaline Cast (Auto) 1-5 (0-5) /lpf U Epithel Cells (Auto) 20-30 H (0-5) /lpf Urine Bacteria (Auto) Negative (Negative) Urine Crystals Not Reportable Calcium Oxalate Crystal Present A (None Prsent) Amorphous Sediment Present A (None Prsent) Nasal Screen MRSA (PCR) Salicylates (2.8-20) mg/dl Urine Opiates Screen (Neg) U Codeine Confrm GC/MS Pending Ur Morphine (GC/MS) Pending Ur Hydrocodone (GC/MS) Pending Ur Norhydrocodone Pending Ur Noroxycodone Pending Urine Oxycodone (GC/MS) Pending U Oxymorphone GC/MS Pending Ur Methadone, Qual (Neg) Ur Hydromorphone (GC/MS) Pending Acetaminophen (10-30) ug/ml Urine Barbiturates (Neg) Ur Phencyclidine (PCP) (Neg) U Amphetamin/Meth Scrn (Neg) MDMA (Ecstasy) Screen (Neg) U Benzodiazepines Scrn (Neg) Ur Cocaine Metabolite (Neg) U Marijuana (THC) Screen (Neg) Ethyl Alcohol mg/dL (0-3) mg/dl 05/05/19 05/05/19 05/05/19 Range/Units 14:04 13:54 13:54 WBC (4.8-10.8) K/uL RBC (4.7-6.1) M/uL Hgb (14.0-18.0) g/dL Hct (42-52) % MCV (80-100) fL MCH (25-34) pg MCHC (32-36) g/dL RDW Std Deviation (36.4-46.3) fL RDW Coeff of Katherine (11.5-14.5) % Plt Count (130-400) K/uL MPV (7.4-10.4) fL Immature Gran % (Auto) % Neut % (Auto) % Lymph % (Auto) % [place] % (Auto) % Eos % (Auto) % Baso % (Auto) % Immature Gran # (Auto) (0.00-0.02) K/uL Neut # (Auto) (1.4-6.5) K/uL Lymph # (Auto) (1.2-3.4) K/uL [place] # (Auto) (0.11-0.59) K/uL Eos # (Auto) (0-0.5) K/uL Baso # (Auto) (0-0.2) K/uL ESR (0-14) mm/hr PT (9.0-12.0) Seconds INR (0.9-1.1) APTT (21.0-31.0) Seconds PTT Ratio VBG pH (7.36-7.41) VBG pCO2 (38-50) mmHg VBG pO2 mmHg VBG HCO3 mmol/L VBG O2 Saturation % VBG Base Excess mEq/L Barometric Pressure mm/Hg Sodium (136-145) mmol/L Potassium (3.5-5.1) mmol/L Chloride (98-107) mmol/L Carbon Dioxide (21-32) mmol/L Anion Gap (3-11) BUN (7-18) mg/dl Creatinine (0.6-1.4) mg/dl Est Cr Clr Drug Dosing ml/min Est GFR ( Amer) Est GFR (Non-Af Amer) BUN/Creatinine Ratio (10-20) Glucose (70-99) mg/dl POC Glucose (70-99) Lactate (0.4-2.0) mmol/L Calcium (8.5-10.1) mg/dl Ionized Calcium Cancelled Magnesium (1.8-2.4) mg/dl Total Bilirubin (0.2-1) mg/dl AST (15-37) U/L ALT (12-78) U/L Alkaline Phosphatase (45-117) U/L Total Creatine Kinase 6880 H (39-308) U/L CK-MB (CK-2) (0.5-3.6) ng/ml Troponin I (0-0.045) ng/ml C-Reactive Protein (0-0.29) mg/dl Total Protein (6.4-8.2) gm/dl Albumin (3.4-5.0) gm/dl Globulin (2.5-4.0) gm/dl Albumin/Globulin Ratio (0.9-2) Procalcitonin (0-0.5) ng/ml Urine Color Urine Appearance (Clear) Urine pH (4.5-7.5) Ur Specific [place] (1.000-1.030) Urine Protein (Negative) Urine Glucose (UA) (Negative) Urine Ketones (Negative) Urine Blood (Negative) Urine Nitrite (Negative) Urine Bilirubin (Negative) Urine Urobilinogen (Negative) Ur Leukocyte Esterase (Negative) Urine WBC (Auto) (0-5) /hpf Urine RBC (Auto) (0-4) /hpf U Hyaline Cast (Auto) (0-5) /lpf U Epithel Cells (Auto) (0-5) /lpf Urine Bacteria (Auto) (Negative) Urine Crystals Calcium Oxalate Crystal (None Prsent) Amorphous Sediment (None Prsent) Nasal Screen MRSA (PCR) Salicylates (2.8-20) mg/dl Urine Opiates Screen Pos H (Neg) U Codeine Confrm GC/MS Ur Morphine (GC/MS) Ur Hydrocodone (GC/MS) Ur Norhydrocodone Ur Noroxycodone Urine Oxycodone (GC/MS) U Oxymorphone GC/MS Ur Methadone, Qual Neg (Neg) Ur Hydromorphone (GC/MS) Acetaminophen (10-30) ug/ml Urine Barbiturates Neg (Neg) Ur Phencyclidine (PCP) Neg (Neg) U Amphetamin/Meth Scrn Neg (Neg) MDMA (Ecstasy) Screen Neg (Neg) U Benzodiazepines Scrn Neg (Neg) Ur Cocaine Metabolite Neg (Neg) U Marijuana (THC) Screen Neg (Neg) Ethyl Alcohol mg/dL (0-3) mg/dl 05/05/19 05/05/19 05/05/19 Range/Units 12:50 12:48 12:48 WBC (4.8-10.8) K/uL RBC (4.7-6.1) M/uL Hgb (14.0-18.0) g/dL Hct (42-52) % MCV (80-100) fL MCH (25-34) pg MCHC (32-36) g/dL RDW Std Deviation (36.4-46.3) fL RDW Coeff of Katherine (11.5-14.5) % Plt Count (130-400) K/uL MPV (7.4-10.4) fL Immature Gran % (Auto) % Neut % (Auto) % Lymph % (Auto) % [place] % (Auto) % Eos % (Auto) % Baso % (Auto) % Immature Gran # (Auto) (0.00-0.02) K/uL Neut # (Auto) (1.4-6.5) K/uL Lymph # (Auto) (1.2-3.4) K/uL [place] # (Auto) (0.11-0.59) K/uL Eos # (Auto) (0-0.5) K/uL Baso # (Auto) (0-0.2) K/uL ESR (0-14) mm/hr PT (9.0-12.0) Seconds INR (0.9-1.1) APTT (21.0-31.0) Seconds PTT Ratio VBG pH (7.36-7.41) VBG pCO2 (38-50) mmHg VBG pO2 mmHg VBG HCO3 mmol/L VBG O2 Saturation % VBG Base Excess mEq/L Barometric Pressure mm/Hg Sodium (136-145) mmol/L Potassium (3.5-5.1) mmol/L Chloride (98-107) mmol/L Carbon Dioxide (21-32) mmol/L Anion Gap (3-11) BUN (7-18) mg/dl Creatinine (0.6-1.4) mg/dl Est Cr Clr Drug Dosing ml/min Est GFR ( Amer) Est GFR (Non-Af Amer) BUN/Creatinine Ratio (10-20) Glucose (70-99) mg/dl POC Glucose (70-99) Lactate 1.1 (0.4-2.0) mmol/L Calcium (8.5-10.1) mg/dl Ionized Calcium Magnesium (1.8-2.4) mg/dl Total Bilirubin (0.2-1) mg/dl AST (15-37) U/L ALT (12-78) U/L Alkaline Phosphatase (45-117) U/L Total Creatine Kinase (39-308) U/L CK-MB (CK-2) (0.5-3.6) ng/ml Troponin I (0-0.045) ng/ml C-Reactive Protein (0-0.29) mg/dl Total Protein (6.4-8.2) gm/dl Albumin (3.4-5.0) gm/dl Globulin (2.5-4.0) gm/dl Albumin/Globulin Ratio (0.9-2) Procalcitonin (0-0.5) ng/ml Urine Color Urine Appearance (Clear) Urine pH (4.5-7.5) Ur Specific [place] (1.000-1.030) Urine Protein (Negative) Urine Glucose (UA) (Negative) Urine Ketones (Negative) Urine Blood (Negative) Urine Nitrite (Negative) Urine Bilirubin (Negative) Urine Urobilinogen (Negative) Ur Leukocyte Esterase (Negative) Urine WBC (Auto) (0-5) /hpf Urine RBC (Auto) (0-4) /hpf U Hyaline Cast (Auto) (0-5) /lpf U Epithel Cells (Auto) (0-5) /lpf Urine Bacteria (Auto) (Negative) Urine Crystals Calcium Oxalate Crystal (None Prsent) Amorphous Sediment (None Prsent) Nasal Screen MRSA (PCR) Salicylates 2.7 L (2.8-20) mg/dl Urine Opiates Screen (Neg) U Codeine Confrm GC/MS Ur Morphine (GC/MS) Ur Hydrocodone (GC/MS) Ur Norhydrocodone Ur Noroxycodone Urine Oxycodone (GC/MS) U Oxymorphone GC/MS Ur Methadone, Qual (Neg) Ur Hydromorphone (GC/MS) Acetaminophen < 2 L (10-30) ug/ml Urine Barbiturates (Neg) Ur Phencyclidine (PCP) (Neg) U Amphetamin/Meth Scrn (Neg) MDMA (Ecstasy) Screen (Neg) U Benzodiazepines Scrn (Neg) Ur Cocaine Metabolite (Neg) U Marijuana (THC) Screen (Neg) Ethyl Alcohol mg/dL < 3.0 (0-3) mg/dl 0605/05/19 05/05/19 Range/Units 12:48 12:48 12:48 WBC (4.8-10.8) K/uL RBC (4.7-6.1) M/uL Hgb (14.0-18.0) g/dL Hct (42-52) % MCV (80-100) fL MCH (25-34) pg MCHC (32-36) g/dL RDW Std Deviation (36.4-46.3) fL RDW Coeff of Katherine (11.5-14.5) % Plt Count (130-400) K/uL MPV (7.4-10.4) fL Immature Gran % (Auto) % Neut % (Auto) % Lymph % (Auto) % [place] % (Auto) % Eos % (Auto) % Baso % (Auto) % Immature Gran # (Auto) (0.00-0.02) K/uL Neut # (Auto) (1.4-6.5) K/uL Lymph # (Auto) (1.2-3.4) K/uL [place] # (Auto) (0.11-0.59) K/uL Eos # (Auto) (0-0.5) K/uL Baso # (Auto) (0-0.2) K/uL ESR (0-14) mm/hr PT 10.8 (9.0-12.0) Seconds INR 1.1 (0.9-1.1) APTT 34.5 H (21.0-31.0) Seconds PTT Ratio 1.3 VBG pH 7.17 L (7.36-7.41) VBG pCO2 28 L (38-50) mmHg VBG pO2 47 mmHg VBG HCO3 10 mmol/L VBG O2 Saturation 75.3 % VBG Base Excess -16.9 mEq/L Barometric Pressure 731.4 mm/Hg Sodium 126 L (136-145) mmol/L Potassium 6.5 H* (3.5-5.1) mmol/L Chloride 90 L (98-107) mmol/L Carbon Dioxide 11 L (21-32) mmol/L Anion Gap 26.0 H (3-11) BUN 105 H (7-18) mg/dl Creatinine 13.40 H* (0.6-1.4) mg/dl Est Cr Clr Drug Dosing 7.3 ml/min Est GFR ( Amer) 4.3 Est GFR (Non-Af Amer) 3.7 BUN/Creatinine Ratio 7.8 L (10-20) Glucose 152 H (70-99) mg/dl POC Glucose (70-99) Lactate (0.4-2.0) mmol/L Calcium 5.4 L* (8.5-10.1) mg/dl Ionized Calcium Magnesium 3.0 H (1.8-2.4) mg/dl Total Bilirubin 0.9 (0.2-1) mg/dl AST 262 H (15-37) U/L ALT 118 H (12-78) U/L Alkaline Phosphatase 94 (45-117) U/L Total Creatine Kinase (39-308) U/L CK-MB (CK-2) 91.1 H (0.5-3.6) ng/ml Troponin I < 0.015 (0-0.045) ng/ml C-Reactive Protein 9.37 H (0-0.29) mg/dl Total Protein 8.7 H (6.4-8.2) gm/dl Albumin 3.6 (3.4-5.0) gm/dl Globulin 5.1 H (2.5-4.0) gm/dl Albumin/Globulin Ratio 0.7 L (0.9-2) Procalcitonin (0-0.5) ng/ml Urine Color Urine Appearance (Clear) Urine pH (4.5-7.5) Ur Specific [place] (1.000-1.030) Urine Protein (Negative) Urine Glucose (UA) (Negative) Urine Ketones (Negative) Urine Blood (Negative) Urine Nitrite (Negative) Urine Bilirubin (Negative) Urine Urobilinogen (Negative) Ur Leukocyte Esterase (Negative) Urine WBC (Auto) (0-5) /hpf Urine RBC (Auto) (0-4) /hpf U Hyaline Cast (Auto) (0-5) /lpf U Epithel Cells (Auto) (0-5) /lpf Urine Bacteria (Auto) (Negative) Urine Crystals Calcium Oxalate Crystal (None Prsent) Amorphous Sediment (None Prsent) Nasal Screen MRSA (PCR) Salicylates (2.8-20) mg/dl Urine Opiates Screen (Neg) U Codeine Confrm GC/MS Ur Morphine (GC/MS) Ur Hydrocodone (GC/MS) Ur Norhydrocodone Ur Noroxycodone Urine Oxycodone (GC/MS) U Oxymorphone GC/MS Ur Methadone, Qual (Neg) Ur Hydromorphone (GC/MS) Acetaminophen (10-30) ug/ml Urine Barbiturates (Neg) Ur Phencyclidine (PCP) (Neg) U Amphetamin/Meth Scrn (Neg) MDMA (Ecstasy) Screen (Neg) U Benzodiazepines Scrn (Neg) Ur Cocaine Metabolite (Neg) U Marijuana (THC) Screen (Neg) Ethyl Alcohol mg/dL (0-3) mg/dl 05/05/19 05/05/19 05/05/19 Range/Units 12:48 12:48 12:48 WBC 11.72 H (4.8-10.8) K/uL RBC 3.72 L (4.7-6.1) M/uL Hgb 12.0 L (14.0-18.0) g/dL Hct 34.3 L (42-52) % MCV 92.2 (80-100) fL MCH 32.3 (25-34) pg MCHC 35.0 (32-36) g/dL RDW Std Deviation 49.9 H (36.4-46.3) fL RDW Coeff of Katherine 14.7 H (11.5-14.5) % Plt Count 134 (130-400) K/uL MPV 9.2 (7.4-10.4) fL Immature Gran % (Auto) 0.5 % Neut % (Auto) 68.5 % Lymph % (Auto) 21.3 % [place] % (Auto) 8.6 % Eos % (Auto) 0.8 % Baso % (Auto) 0.3 % Immature Gran # (Auto) 0.06 H (0.00-0.02) K/uL Neut # (Auto) 8.03 H (1.4-6.5) K/uL Lymph # (Auto) 2.50 (1.2-3.4) K/uL [place] # (Auto) 1.01 H (0.11-0.59) K/uL Eos # (Auto) 0.09 (0-0.5) K/uL Baso # (Auto) 0.03 (0-0.2) K/uL ESR 83 H (0-14) mm/hr PT (9.0-12.0) Seconds INR (0.9-1.1) APTT (21.0-31.0) Seconds PTT Ratio VBG pH (7.36-7.41) VBG pCO2 (38-50) mmHg VBG pO2 mmHg VBG HCO3 mmol/L VBG O2 Saturation % VBG Base Excess mEq/L Barometric Pressure mm/Hg Sodium (136-145) mmol/L Potassium (3.5-5.1) mmol/L Chloride (98-107) mmol/L Carbon Dioxide (21-32) mmol/L Anion Gap (3-11) BUN (7-18) mg/dl Creatinine (0.6-1.4) mg/dl Est Cr Clr Drug Dosing ml/min Est GFR ( Amer) Est GFR (Non-Af Amer) BUN/Creatinine Ratio (10-20) Glucose (70-99) mg/dl POC Glucose (70-99) Lactate (0.4-2.0) mmol/L Calcium (8.5-10.1) mg/dl Ionized Calcium Magnesium (1.8-2.4) mg/dl Total Bilirubin (0.2-1) mg/dl AST (15-37) U/L ALT (12-78) U/L Alkaline Phosphatase (45-117) U/L Total Creatine Kinase (39-308) U/L CK-MB (CK-2) (0.5-3.6) ng/ml Troponin I (0-0.045) ng/ml C-Reactive Protein (0-0.29) mg/dl Total Protein (6.4-8.2) gm/dl Albumin (3.4-5.0) gm/dl Globulin (2.5-4.0) gm/dl Albumin/Globulin Ratio (0.9-2) Procalcitonin 7.02 H (0-0.5) ng/ml Urine Color Urine Appearance (Clear) Urine pH (4.5-7.5) Ur Specific [place] (1.000-1.030) Urine Protein (Negative) Urine Glucose (UA) (Negative) Urine Ketones (Negative) Urine Blood (Negative) Urine Nitrite (Negative) Urine Bilirubin (Negative) Urine Urobilinogen (Negative) Ur Leukocyte Esterase (Negative) Urine WBC (Auto) (0-5) /hpf Urine RBC (Auto) (0-4) /hpf U Hyaline Cast (Auto) (0-5) /lpf U Epithel Cells (Auto) (0-5) /lpf Urine Bacteria (Auto) (Negative) Urine Crystals Calcium Oxalate Crystal (None Prsent) Amorphous Sediment (None Prsent) Nasal Screen MRSA (PCR) Salicylates (2.8-20) mg/dl Urine Opiates Screen (Neg) U Codeine Confrm GC/MS Ur Morphine (GC/MS) Ur Hydrocodone (GC/MS) Ur Norhydrocodone Ur Noroxycodone Urine Oxycodone (GC/MS) U Oxymorphone GC/MS Ur Methadone, Qual (Neg) Ur Hydromorphone (GC/MS) Acetaminophen (10-30) ug/ml Urine Barbiturates (Neg) Ur Phencyclidine (PCP) (Neg) U Amphetamin/Meth Scrn (Neg) MDMA (Ecstasy) Screen (Neg) U Benzodiazepines Scrn (Neg) Ur Cocaine Metabolite (Neg) U Marijuana (THC) Screen (Neg) Ethyl Alcohol mg/dL (0-3) mg/dl 05/05/19 Range/Units 12:21 WBC (4.8-10.8) K/uL RBC (4.7-6.1) M/uL Hgb (14.0-18.0) g/dL Hct (42-52) % MCV (80-100) fL MCH (25-34) pg MCHC (32-36) g/dL RDW Std Deviation (36.4-46.3) fL RDW Coeff of Katherine (11.5-14.5) % Plt Count (130-400) K/uL MPV (7.4-10.4) fL Immature Gran % (Auto) % Neut % (Auto) % Lymph % (Auto) % [place] % (Auto) % Eos % (Auto) % Baso % (Auto) % Immature Gran # (Auto) (0.00-0.02) K/uL Neut # (Auto) (1.4-6.5) K/uL Lymph # (Auto) (1.2-3.4) K/uL [place] # (Auto) (0.11-0.59) K/uL Eos # (Auto) (0-0.5) K/uL Baso # (Auto) (0-0.2) K/uL ESR (0-14) mm/hr PT (9.0-12.0) Seconds INR (0.9-1.1) APTT (21.0-31.0) Seconds PTT Ratio VBG pH (7.36-7.41) VBG pCO2 (38-50) mmHg VBG pO2 mmHg VBG HCO3 mmol/L VBG O2 Saturation % VBG Base Excess mEq/L Barometric Pressure mm/Hg Sodium (136-145) mmol/L Potassium (3.5-5.1) mmol/L Chloride (98-107) mmol/L Carbon Dioxide (21-32) mmol/L Anion Gap (3-11) BUN (7-18) mg/dl Creatinine (0.6-1.4) mg/dl Est Cr Clr Drug Dosing ml/min Est GFR ( Amer) Est GFR (Non-Af Amer) BUN/Creatinine Ratio (10-20) Glucose (70-99) mg/dl POC Glucose 160 H (70-99) Lactate (0.4-2.0) mmol/L Calcium (8.5-10.1) mg/dl Ionized Calcium Magnesium (1.8-2.4) mg/dl Total Bilirubin (0.2-1) mg/dl AST (15-37) U/L ALT (12-78) U/L Alkaline Phosphatase (45-117) U/L Total Creatine Kinase (39-308) U/L CK-MB (CK-2) (0.5-3.6) ng/ml Troponin I (0-0.045) ng/ml C-Reactive Protein (0-0.29) mg/dl Total Protein (6.4-8.2) gm/dl Albumin (3.4-5.0) gm/dl Globulin (2.5-4.0) gm/dl Albumin/Globulin Ratio (0.9-2) Procalcitonin (0-0.5) ng/ml Urine Color Urine Appearance (Clear) Urine pH (4.5-7.5) Ur Specific [place] (1.000-1.030) Urine Protein (Negative) Urine Glucose (UA) (Negative) Urine Ketones (Negative) Urine Blood (Negative) Urine Nitrite (Negative) Urine Bilirubin (Negative) Urine Urobilinogen (Negative) Ur Leukocyte Esterase (Negative) Urine WBC (Auto) (0-5) /hpf Urine RBC (Auto) (0-4) /hpf U Hyaline Cast (Auto) (0-5) /lpf U Epithel Cells (Auto) (0-5) /lpf Urine Bacteria (Auto) (Negative) Urine Crystals Calcium Oxalate Crystal (None Prsent) Amorphous Sediment (None Prsent) Nasal Screen MRSA (PCR) Salicylates (2.8-20) mg/dl Urine Opiates Screen (Neg) U Codeine Confrm GC/MS Ur Morphine (GC/MS) Ur Hydrocodone (GC/MS) Ur Norhydrocodone Ur Noroxycodone Urine Oxycodone (GC/MS) U Oxymorphone GC/MS Ur Methadone, Qual (Neg) Ur Hydromorphone (GC/MS) Acetaminophen (10-30) ug/ml Urine Barbiturates (Neg) Ur Phencyclidine (PCP) (Neg) U Amphetamin/Meth Scrn (Neg) MDMA (Ecstasy) Screen (Neg) U Benzodiazepines Scrn (Neg) Ur Cocaine Metabolite (Neg) U Marijuana (THC) Screen (Neg) Ethyl Alcohol mg/dL (0-3) mg/dl Medications Administered Home Medications Medication Instructions Recorded Confirmed Last Taken albuterol sulfate [Ventolin HFA] 2 puff INHALATION QID PRN 05/05/19 05/05/19 Unknown amlodipine 10 mg PO DAILY 05/05/19 05/05/19 Unknown aspirin [Aspir-81] 81 mg PO DAILY 05/05/19 05/05/19 Unknown atorvastatin 40 mg PO HS 05/05/19 05/05/19 Unknown coenzyme Q10 200 mg PO DAILY 05/05/19 05/05/19 Unknown duloxetine 60 mg PO DAILY 05/05/19 05/05/19 Unknown empagliflozin 10 mg PO DAILY 05/05/19 05/05/19 Unknown fentanyl 1 patch TRANSDERMAL Q72H 05/05/19 05/05/19 05/03/19 folic acid 1 mg PO DAILY 05/05/19 05/05/19 Unknown gabapentin 300 mg PO TID 05/05/19 05/05/19 Unknown lisinopril 40 mg PO DAILY 05/05/19 05/05/19 Unknown multivitamin with minerals 1 tab PO DAILY 05/05/19 05/05/19 Unknown [Multiple Vitamin-Minerals] oxycodone-acetaminophen 1 tab PO Q8H PRN 05/05/19 05/05/19 Unknown oxymetazoline 1 spray INTRANASAL HS PRN 05/05/19 05/05/19 Unknown sitagliptin-metformin 1 tab PO BID 05/05/19 05/05/19 Unknown (1) Rhabdomyolysis Encounter type: initial encounter Rhabdomyolysis type: traumatic Qualified Code(s): T79.6XXA - Traumatic ischemia of muscle, initial encounter
[2019-05-05 17:22] LABS: iSTAT Allen Test Pass; iSTAT Arterial Blood Gas HCO3 11 meg/L (19-24); iSTAT Arterial Blood Gas pCO2 32 mmHg (35-46); iSTAT Arterial Blood Gas pH 7.13 (7.35-7.45); iSTAT Carbon Dioxide 12 mEq/l (24-31); iSTAT Site R Radial
--- NOTE | 2019-05-05 17:24 | Emergency Department Note ---
Entered by Gricelda Minor acting as a scribe for History of Present Illness General Chief complaint: Lethargic Source: other (nursing staff) Limitations: altered mental status History of Present Illness Provider complaint: lethargy Onset (ago): day(s) 2 Location: left and right Quality: + other (lethargy) The patient is a 54 year old male who presents to the Emergency Department with lethargy the last 2 days. Limited HPI secondary to AMS. Per nursing staff, the patient has been lethargic since yesterday. Per nursing staff, the patient was started on a new blood pressure medication yesterday. Nursing staff states that the patient is diabetic. Per nursing staff, the patient is on disability for chronic pain. Nursing staff states that the patient was down to 88 on room air. Home Medications Home Medications Medication Instructions Recorded Confirmed Type albuterol sulfate [Ventolin HFA] 2 puff INHALATION QID PRN 05/05/19 05/05/19 History amlodipine 10 mg PO DAILY 05/05/19 05/05/19 History aspirin [Aspir-81] 81 mg PO DAILY 05/05/19 05/05/19 History atorvastatin 40 mg PO HS 05/05/19 05/05/19 History coenzyme Q10 200 mg PO DAILY 05/05/19 05/05/19 History duloxetine 60 mg PO DAILY 05/05/19 05/05/19 History empagliflozin 10 mg PO DAILY 05/05/19 05/05/19 History fentanyl 1 patch TRANSDERMAL Q72H 05/05/19 05/05/19 History folic acid 1 mg PO DAILY 05/05/19 05/05/19 History gabapentin 300 mg PO TID 05/05/19 05/05/19 History lisinopril 40 mg PO DAILY 05/05/19 05/05/19 History multivitamin with minerals 1 tab PO DAILY 05/05/19 05/05/19 History [Multiple Vitamin-Minerals] oxycodone-acetaminophen 1 tab PO Q8H PRN 05/05/19 05/05/19 History oxymetazoline 1 spray INTRANASAL HS PRN 05/05/19 05/05/19 History sitagliptin-metformin 1 tab PO BID 05/05/19 05/05/19 History Allergies Allergy/AdvReac Type Severity Reaction Status Date / Time pregabalin Allergy Unknown Tremor Verified 05/05/19 13:11 Iodinated Contrast- Oral and AdvReac Unknown JITTERY Verified 05/05/19 13:11 IV Dye Past Med/Surg History Medical History T2DM (type 2 diabetes mellitus) MDD (major depressive disorder) (Chronic) HTN (hypertension) (Chronic) HLD (hyperlipidemia) (Chronic) GERD (gastroesophageal reflux disease) (Chronic) Abnormal LFTs (Chronic) Chronic pain syndrome (Chronic) Hypersomnia with sleep apnea (Chronic 12/01/12) COPD (chronic obstructive pulmonary disease) (Chronic) Surgical History H/O shoulder surgery (Chronic) H/O knee surgery (Chronic) History of carpal tunnel surgery (Chronic) History of appendectomy (Chronic) H/O hernia repair (Chronic) Family History Mother Coronary heart disease Diabetes Lung disease Father Coronary heart disease Diabetes Cancer renal cell Social History Preferred Language: Kyrgyz Communication Ability: Impaired Communication Ability Comment: altered mental status at this time Brim Buster Required: No Beliefs That Will Affect Care: None marital status: Current Living Situation: Spouse Feels Safe at Home: Yes Smoking Status: Current every day smoker Tobacco Type: cigarettes Cigarettes Per Day: 1 ppd Do You Dip or Chew Tobacco: No Second Hand Exposure: Yes Tobacco Cessation Education Requested by Patient: Yes Hx Alcohol Use: Yes Alcohol type: beer Alcohol Intake Frequency Comment: 4 beers daily Hx Substance Use: Yes substance use type: prescription drug Substance Use Type Other:: On Fentanyl and percocet Last Used Substance Other:: sunday evening percoset. was wearing fentanyl patch Review of Systems Limited ROS secondary to AMS. Physical Exam Vital Signs Vital Signs - 24 hr 05/05/19 11:36 05/05/19 11:41 05/05/19 12:06 Temperature 36.5 C Temperature Source Oral Sepsis Recent Fever Within 48 Hours No Sepsis New/Unexplained Change in Mental Status No Sepsis Action Taken by Nursing No Action Required Pulse Rate 85 86 Pulse Rate [Apical] 85 85 86 Pulse Rate from SpO2 Sensor 85 Respiratory Rate 26 H 27 H 22 Blood Pressure 110/71 115/47 L Blood Pressure [Right Arm] 110/71 110/71 115/47 L Blood Pressure Mean 84 69 Blood Pressure Mean [Right Arm] 84 84 69 Blood Pressure Position Lying Pulse Oximetry 87 L 91 91 Oxygen Delivery Method Room Air Room Air Room Air Oxygen Flow Rate 4 4 05/05/19 12:09 05/05/19 12:13 05/05/19 12:15 Temperature 36.5 C Temperature Source Oral Sepsis Recent Fever Within 48 Hours Sepsis New/Unexplained Change in Mental Status Sepsis Action Taken by Nursing Pulse Rate 86 86 85 Pulse Rate [Apical] 85 Pulse Rate from SpO2 Sensor 84 85 Respiratory Rate 23 28 H 26 H Blood Pressure Blood Pressure [Right Arm] 115/47 L Blood Pressure Mean Blood Pressure Mean [Right Arm] 69 Blood Pressure Position Pulse Oximetry 69 L 92 88 L Oxygen Delivery Method Room Air Oxygen Flow Rate 4 05/05/19 12:16 05/05/19 12:17 05/05/19 12:18 Temperature Temperature Source Sepsis Recent Fever Within 48 Hours Sepsis New/Unexplained Change in Mental Status Sepsis Action Taken by Nursing Pulse Rate 84 84 Pulse Rate [Apical] 86 Pulse Rate from SpO2 Sensor 84 84 Respiratory Rate 86 H 27 H 29 H Blood Pressure 144/51 H Blood Pressure [Right Arm] 144/51 H Blood Pressure Mean 82 Blood Pressure Mean [Right Arm] 82 Blood Pressure Position Pulse Oximetry 91 91 95 Oxygen Delivery Method Room Air Oxygen Flow Rate 4 05/05/19 12:30 05/05/19 12:33 05/05/19 12:45 Temperature Temperature Source Sepsis Recent Fever Within 48 Hours Sepsis New/Unexplained Change in Mental Status Sepsis Action Taken by Nursing Pulse Rate 85 84 85 Pulse Rate [Apical] 84 85 Pulse Rate from SpO2 Sensor 83 84 85 Respiratory Rate 21 20 20 Blood Pressure 91/45 L Blood Pressure [Right Arm] 91/45 L 114/54 L Blood Pressure Mean 60 Blood Pressure Mean [Right Arm] 60 74 Blood Pressure Position Pulse Oximetry 93 93 91 Oxygen Delivery Method Room Air Room Air Oxygen Flow Rate 4 4 05/05/19 12:46 05/05/19 13:00 05/05/19 13:01 Temperature Temperature Source Sepsis Recent Fever Within 48 Hours Sepsis New/Unexplained Change in Mental Status Sepsis Action Taken by Nursing Pulse Rate 86 86 86 Pulse Rate [Apical] Pulse Rate from SpO2 Sensor 85 86 87 Respiratory Rate 13 20 19 Blood Pressure 114/54 L 120/52 L Blood Pressure [Right Arm] Blood Pressure Mean 74 74 Blood Pressure Mean [Right Arm] Blood Pressure Position Pulse Oximetry 92 93 92 Oxygen Delivery Method Oxygen Flow Rate 05/05/19 13:33 05/05/19 13:45 05/05/19 13:57 Temperature Temperature Source Oral Sepsis Recent Fever Within 48 Hours Sepsis New/Unexplained Change in Mental Status Sepsis Action Taken by Nursing Pulse Rate 85 84 85 Pulse Rate [Apical] 85 Pulse Rate from SpO2 Sensor 84 84 Respiratory Rate 12 14 17 Blood Pressure 92/54 L Blood Pressure [Right Arm] 92/54 L Blood Pressure Mean 66 Blood Pressure Mean [Right Arm] 66 Blood Pressure Position Pulse Oximetry 93 91 Oxygen Delivery Method Room Air Oxygen Flow Rate 4 05/05/19 14:00 05/05/19 14:01 05/05/19 14:04 Temperature Temperature Source Sepsis Recent Fever Within 48 Hours Sepsis New/Unexplained Change in Mental Status Sepsis Action Taken by Nursing Pulse Rate 86 86 84 Pulse Rate [Apical] 86 Pulse Rate from SpO2 Sensor 88 88 84 Respiratory Rate 17 17 17 Blood Pressure 101/61 98/47 L Blood Pressure [Right Arm] 101/61 Blood Pressure Mean 74 64 Blood Pressure Mean [Right Arm] 74 Blood Pressure Position Pulse Oximetry 91 86 L 91 Oxygen Delivery Method Room Air Oxygen Flow Rate 4 05/05/19 14:05 05/05/19 14:15 05/05/19 14:16 Temperature Temperature Source Sepsis Recent Fever Within 48 Hours Sepsis New/Unexplained Change in Mental Status Sepsis Action Taken by Nursing Pulse Rate 85 87 87 Pulse Rate [Apical] Pulse Rate from SpO2 Sensor 85 87 87 Respiratory Rate 17 20 23 Blood Pressure 109/49 L Blood Pressure [Right Arm] Blood Pressure Mean 69 Blood Pressure Mean [Right Arm] Blood Pressure Position Pulse Oximetry 91 94 94 Oxygen Delivery Method Oxygen Flow Rate GENERAL: Patient is listless. Responds to loud verbal commands but quickly goes back to sleep. EYES: Mid size and reactive to light bilaterally., EARS, NOSE, MOUTH AND THROAT: The nose is without any evidence of any deformity. Mucous membranes are moist.Tongue is midline NECK: The neck is nontender and supple. RESPIRATORY: Diminished throughout. Abdominal breathing was noted with shallow respirations. CARDIOVASCULAR: Regular rate and rhythm noted. There no murmurs rubs or gallops normal S1 normal S2 GASTROINTESTINAL: The abdomen is mildly distended. No guarding or rigidity. MUSCULOSKELETAL/EXTREMITIES: There is no evidence of gross deformity. Full range of motion is noted in the hips and shoulders. SKIN: There is no obvious evidence of any rash. There are no petechiae, pallor or cyanosis noted. Pedal edema bilaterally. NEUROLOGIC: Strength was symmetric but diminished. Oriented to person and place but not to situation. Course 1143: The patient was evaluated in room A9B. A history and physical were performed. 1156: The patient was given Narcan with improvement of his symptoms. 1349: I discussed the patient's case with Teresa Holley, admitting to Dr. Parker, who will evaluate the patient for further management. 1354: I discussed the patient's case with Dr. Kerns-ICU who said to consult Nephrology. 1408: I discussed the patient's case with Dr. Spencer-Nephrology who will come evaluate the patient. Consultations Consultation #1: Teresa Holley Time: 13:49 Consultation #2: Dr. Kerns-ICU Time: 13:54 Consultation #3: Dr. Spencer-Nephrology Time: 14:08 Administered Medications Fentanyl (Duragesic) 25 mcg TD Q72H OPAL Stop: 05/19/19 16:59 Last Admin: 05/05/19 16:59 Dose: Not Given Documented by: [id number] Sodium Bicarbonate 150 meq/ (Dextrose) 1,150 mls @ 150 mls/hr IV .Q7H40M OPAL Stop: 06/04/19 14:59 Last Admin: 05/05/19 16:30 Dose: 150 mls/hr Documented by: [id number] Folic Acid 1 mg/ Syringe 10 mls @ 5 mls/min IV DAILY@0900 OPAL Stop: 06/04/19 15:41 Last Admin: 05/05/19 16:49 Dose: 5 mls/min Documented by: [id number] Thiamine HCl 100 mg/ Syringe 10 mls @ 2 mls/hr IV DAILY@0900 [facility] Stop: 06/04/19 15:41 Last Admin: 05/05/19 16:49 Dose: 2 mls/hr Documented by: [id number] Discontinued Medications Calcium Gluconate (Calcium Gluconate 10%) 2,000 mg IV NOW STA Stop: 05/05/19 14:53 Last Admin: 05/05/19 15:45 Dose: Not Given Documented by: [id number] Dextrose (Dextrose 50%) 50 ml IV NOW STA Stop: 05/05/19 13:41 Last Admin: 05/05/19 13:56 Dose: 50 ml Documented by: [id number] Calcium Gluconate 1,000 mg/ (Sodium Chloride) 60 mls @ 240 mls/hr IV NOW STA Stop: 05/05/19 13:54 Last Infusion: 05/05/19 14:44 Dose: 0 mls/hr Documented by: [id number] Admin: 05/05/19 14:10 Dose: 240 mls/hr Documented by: [id number] Sodium Chloride (Nss 1000ml) 1,000 mls @ 999 mls/hr IV .Q1H1M ONE Stop: 05/05/19 14:40 Last Infusion: 05/05/19 14:45 Dose: 0 mls/hr Documented by: [id number] Admin: 05/05/19 13:57 Dose: 999 mls/hr Documented by: [id number] Piperacillin Sod/Tazobactam Sod (Zosyn) 4.5 gm in 120 mls @ 240 mls/hr IV NOW ONE Stop: 05/05/19 14:12 Last Infusion: 05/05/19 14:45 Dose: 0 mls/hr Documented by: [id number] Admin: 05/05/19 13:57 Dose: 240 mls/hr Documented by: [id number] Sodium Chloride (Nss 1000ml) 1,000 mls @ 999 mls/hr IV .Q1H1M ONE Stop: 05/05/19 15:42 Last Infusion: 05/05/19 16:00 Dose: 0 mls/hr Documented by: [id number] Admin: 05/05/19 14:45 Dose: 999 mls/hr Documented by: [id number] Insulin Human Regular (Novolin R U-100 Per Unit) 10 units IV NOW STA Stop: 05/05/19 13:41 Last Admin: 05/05/19 13:56 Dose: 10 units Documented by: [id number] Cosigned by: [id number] Naloxone HCl (Narcan) 0.2 mg IV NOW STA Stop: 05/05/19 11:52 Last Admin: 05/05/19 11:52 Dose: 0.2 mg Documented by: [id number] Naloxone HCl (Narcan) 0.2 mg IV NOW STA Stop: 05/05/19 12:28 Last Admin: 05/05/19 12:27 Dose: 0.2 mg Documented by: [id number] Medical Decision Making Differential Diagnosis Etiologies such as metabolic, infection, hypoglycemia, electrolyte abnormalities, cardiac sources, intracerebral event, toxicologic, neurologic, as well as others were entertained. Medical Records Attestation: I reviewed the patient's medical records. Home Medications Current Medication List: was personally reviewed by me Laboratory Data Attestation: I reviewed the patient's lab results. Result diagrams: 05/05/19 12:48 05/05/19 12:48 Lab Results 05/05/19 05/05/19 05/05/19 Range/Units 12:21 12:48 12:48 WBC 11.72 H (4.8-10.8) K/uL RBC 3.72 L (4.7-6.1) M/uL Hgb 12.0 L (14.0-18.0) g/dL Hct 34.3 L (42-52) % MCV 92.2 (80-100) fL MCH 32.3 (25-34) pg MCHC 35.0 (32-36) g/dL RDW Std Deviation 49.9 H (36.4-46.3) fL RDW Coeff of Katherine 14.7 H (11.5-14.5) % Plt Count 134 (130-400) K/uL MPV 9.2 (7.4-10.4) fL Immature Gran % (Auto) 0.5 % Neut % (Auto) 68.5 % Lymph % (Auto) 21.3 % [place] % (Auto) 8.6 % Eos % (Auto) 0.8 % Baso % (Auto) 0.3 % Immature Gran # (Auto) 0.06 H (0.00-0.02) K/uL Neut # (Auto) 8.03 H (1.4-6.5) K/uL Lymph # (Auto) 2.50 (1.2-3.4) K/uL [place] # (Auto) 1.01 H (0.11-0.59) K/uL Eos # (Auto) 0.09 (0-0.5) K/uL Baso # (Auto) 0.03 (0-0.2) K/uL ESR (0-14) mm/hr PT (9.0-12.0) Seconds INR (0.9-1.1) APTT (21.0-31.0) Seconds PTT Ratio VBG pH (7.36-7.41) VBG pCO2 (38-50) mmHg VBG pO2 mmHg VBG HCO3 mmol/L VBG O2 Saturation % VBG Base Excess mEq/L Barometric Pressure mm/Hg Sodium (136-145) mmol/L Potassium (3.5-5.1) mmol/L Chloride (98-107) mmol/L Carbon Dioxide (21-32) mmol/L Anion Gap (3-11) BUN (7-18) mg/dl Creatinine (0.6-1.4) mg/dl Est Cr Clr Drug Dosing ml/min Est GFR ( Amer) Est GFR (Non-Af Amer) BUN/Creatinine Ratio (10-20) Glucose (70-99) mg/dl POC Glucose 160 H (70-99) Lactate (0.4-2.0) mmol/L Calcium (8.5-10.1) mg/dl Ionized Calcium Magnesium (1.8-2.4) mg/dl Total Bilirubin (0.2-1) mg/dl AST (15-37) U/L ALT (12-78) U/L Alkaline Phosphatase (45-117) U/L Total Creatine Kinase (39-308) U/L CK-MB (CK-2) (0.5-3.6) ng/ml Troponin I (0-0.045) ng/ml C-Reactive Protein (0-0.29) mg/dl Total Protein (6.4-8.2) gm/dl Albumin (3.4-5.0) gm/dl Globulin (2.5-4.0) gm/dl Albumin/Globulin Ratio (0.9-2) Procalcitonin 7.02 H (0-0.5) ng/ml Urine Color Urine Appearance (Clear) Urine pH (4.5-7.5) Ur Specific [place] (1.000-1.030) Urine Protein (Negative) Urine Glucose (UA) (Negative) Urine Ketones (Negative) Urine Blood (Negative) Urine Nitrite (Negative) Urine Bilirubin (Negative) Urine Urobilinogen (Negative) Ur Leukocyte Esterase (Negative) Urine WBC (Auto) (0-5) /hpf Urine RBC (Auto) (0-4) /hpf U Hyaline Cast (Auto) (0-5) /lpf U Epithel Cells (Auto) (0-5) /lpf Urine Bacteria (Auto) (Negative) Urine Crystals Calcium Oxalate Crystal (None Prsent) Amorphous Sediment (None Prsent) Salicylates (2.8-20) mg/dl Urine Opiates Screen (Neg) Ur Methadone, Qual (Neg) Acetaminophen (10-30) ug/ml Urine Barbiturates (Neg) Ur Phencyclidine (PCP) (Neg) U Amphetamin/Meth Scrn (Neg) MDMA (Ecstasy) Screen (Neg) U Benzodiazepines Scrn (Neg) Ur Cocaine Metabolite (Neg) U Marijuana (THC) Screen (Neg) Ethyl Alcohol mg/dL (0-3) mg/dl 05/05/19 05/05/19 05/05/19 Range/Units 12:48 12:48 12:48 WBC (4.8-10.8) K/uL RBC (4.7-6.1) M/uL Hgb (14.0-18.0) g/dL Hct (42-52) % MCV (80-100) fL MCH (25-34) pg MCHC (32-36) g/dL RDW Std Deviation (36.4-46.3) fL RDW Coeff of Katherine (11.5-14.5) % Plt Count (130-400) K/uL MPV (7.4-10.4) fL Immature Gran % (Auto) % Neut % (Auto) % Lymph % (Auto) % [place] % (Auto) % Eos % (Auto) % Baso % (Auto) % Immature Gran # (Auto) (0.00-0.02) K/uL Neut # (Auto) (1.4-6.5) K/uL Lymph # (Auto) (1.2-3.4) K/uL [place] # (Auto) (0.11-0.59) K/uL Eos # (Auto) (0-0.5) K/uL Baso # (Auto) (0-0.2) K/uL ESR 83 H (0-14) mm/hr PT 10.8 (9.0-12.0) Seconds INR 1.1 (0.9-1.1) APTT 34.5 H (21.0-31.0) Seconds PTT Ratio 1.3 VBG pH (7.36-7.41) VBG pCO2 (38-50) mmHg VBG pO2 mmHg VBG HCO3 mmol/L VBG O2 Saturation % VBG Base Excess mEq/L Barometric Pressure mm/Hg Sodium 126 L (136-145) mmol/L Potassium 6.5 H* (3.5-5.1) mmol/L Chloride 90 L (98-107) mmol/L Carbon Dioxide 11 L (21-32) mmol/L Anion Gap 26.0 H (3-11) BUN 105 H (7-18) mg/dl Creatinine 13.40 H* (0.6-1.4) mg/dl Est Cr Clr Drug Dosing 7.3 ml/min Est GFR ( Amer) 4.3 Est GFR (Non-Af Amer) 3.7 BUN/Creatinine Ratio 7.8 L (10-20) Glucose 152 H (70-99) mg/dl POC Glucose (70-99) Lactate (0.4-2.0) mmol/L Calcium 5.4 L* (8.5-10.1) mg/dl Ionized Calcium Magnesium 3.0 H (1.8-2.4) mg/dl Total Bilirubin 0.9 (0.2-1) mg/dl AST 262 H (15-37) U/L ALT 118 H (12-78) U/L Alkaline Phosphatase 94 (45-117) U/L Total Creatine Kinase (39-308) U/L CK-MB (CK-2) 91.1 H (0.5-3.6) ng/ml Troponin I < 0.015 (0-0.045) ng/ml C-Reactive Protein 9.37 H (0-0.29) mg/dl Total Protein 8.7 H (6.4-8.2) gm/dl Albumin 3.6 (3.4-5.0) gm/dl Globulin 5.1 H (2.5-4.0) gm/dl Albumin/Globulin Ratio 0.7 L (0.9-2) Procalcitonin (0-0.5) ng/ml Urine Color Urine Appearance (Clear) Urine pH (4.5-7.5) Ur Specific [place] (1.000-1.030) Urine Protein (Negative) Urine Glucose (UA) (Negative) Urine Ketones (Negative) Urine Blood (Negative) Urine Nitrite (Negative) Urine Bilirubin (Negative) Urine Urobilinogen (Negative) Ur Leukocyte Esterase (Negative) Urine WBC (Auto) (0-5) /hpf Urine RBC (Auto) (0-4) /hpf U Hyaline Cast (Auto) (0-5) /lpf U Epithel Cells (Auto) (0-5) /lpf Urine Bacteria (Auto) (Negative) Urine Crystals Calcium Oxalate Crystal (None Prsent) Amorphous Sediment (None Prsent) Salicylates (2.8-20) mg/dl Urine Opiates Screen (Neg) Ur Methadone, Qual (Neg) Acetaminophen (10-30) ug/ml Urine Barbiturates (Neg) Ur Phencyclidine (PCP) (Neg) U Amphetamin/Meth Scrn (Neg) MDMA (Ecstasy) Screen (Neg) U Benzodiazepines Scrn (Neg) Ur Cocaine Metabolite (Neg) U Marijuana (THC) Screen (Neg) Ethyl Alcohol mg/dL (0-3) mg/dl 05/05/19 05/05/19 05/05/19 Range/Units 12:48 12:48 12:48 WBC (4.8-10.8) K/uL RBC (4.7-6.1) M/uL Hgb (14.0-18.0) g/dL Hct (42-52) % MCV (80-100) fL MCH (25-34) pg MCHC (32-36) g/dL RDW Std Deviation (36.4-46.3) fL RDW Coeff of Katherine (11.5-14.5) % Plt Count (130-400) K/uL MPV (7.4-10.4) fL Immature Gran % (Auto) % Neut % (Auto) % Lymph % (Auto) % [place] % (Auto) % Eos % (Auto) % Baso % (Auto) % Immature Gran # (Auto) (0.00-0.02) K/uL Neut # (Auto) (1.4-6.5) K/uL Lymph # (Auto) (1.2-3.4) K/uL [place] # (Auto) (0.11-0.59) K/uL Eos # (Auto) (0-0.5) K/uL Baso # (Auto) (0-0.2) K/uL ESR (0-14) mm/hr PT (9.0-12.0) Seconds INR (0.9-1.1) APTT (21.0-31.0) Seconds PTT Ratio VBG pH 7.17 L (7.36-7.41) VBG pCO2 28 L (38-50) mmHg VBG pO2 47 mmHg VBG HCO3 10 mmol/L VBG O2 Saturation 75.3 % VBG Base Excess -16.9 mEq/L Barometric Pressure 731.4 mm/Hg Sodium (136-145) mmol/L Potassium (3.5-5.1) mmol/L Chloride (98-107) mmol/L Carbon Dioxide (21-32) mmol/L Anion Gap (3-11) BUN (7-18) mg/dl Creatinine (0.6-1.4) mg/dl Est Cr Clr Drug Dosing ml/min Est GFR ( Amer) Est GFR (Non-Af Amer) BUN/Creatinine Ratio (10-20) Glucose (70-99) mg/dl POC Glucose (70-99) Lactate (0.4-2.0) mmol/L Calcium (8.5-10.1) mg/dl Ionized Calcium Magnesium (1.8-2.4) mg/dl Total Bilirubin (0.2-1) mg/dl AST (15-37) U/L ALT (12-78) U/L Alkaline Phosphatase (45-117) U/L Total Creatine Kinase (39-308) U/L CK-MB (CK-2) (0.5-3.6) ng/ml Troponin I (0-0.045) ng/ml C-Reactive Protein (0-0.29) mg/dl Total Protein (6.4-8.2) gm/dl Albumin (3.4-5.0) gm/dl Globulin (2.5-4.0) gm/dl Albumin/Globulin Ratio (0.9-2) Procalcitonin (0-0.5) ng/ml Urine Color Urine Appearance (Clear) Urine pH (4.5-7.5) Ur Specific [place] (1.000-1.030) Urine Protein (Negative) Urine Glucose (UA) (Negative) Urine Ketones (Negative) Urine Blood (Negative) Urine Nitrite (Negative) Urine Bilirubin (Negative) Urine Urobilinogen (Negative) Ur Leukocyte Esterase (Negative) Urine WBC (Auto) (0-5) /hpf Urine RBC (Auto) (0-4) /hpf U Hyaline Cast (Auto) (0-5) /lpf U Epithel Cells (Auto) (0-5) /lpf Urine Bacteria (Auto) (Negative) Urine Crystals Calcium Oxalate Crystal (None Prsent) Amorphous Sediment (None Prsent) Salicylates 2.7 L (2.8-20) mg/dl Urine Opiates Screen (Neg) Ur Methadone, Qual (Neg) Acetaminophen < 2 L (10-30) ug/ml Urine Barbiturates (Neg) Ur Phencyclidine (PCP) (Neg) U Amphetamin/Meth Scrn (Neg) MDMA (Ecstasy) Screen (Neg) U Benzodiazepines Scrn (Neg) Ur Cocaine Metabolite (Neg) U Marijuana (THC) Screen (Neg) Ethyl Alcohol mg/dL < 3.0 (0-3) mg/dl 05/05/19 05/05/19 05/05/19 Range/Units 12:50 13:54 13:54 WBC (4.8-10.8) K/uL RBC (4.7-6.1) M/uL Hgb (14.0-18.0) g/dL Hct (42-52) % MCV (80-100) fL MCH (25-34) pg MCHC (32-36) g/dL RDW Std Deviation (36.4-46.3) fL RDW Coeff of Katherine (11.5-14.5) % Plt Count (130-400) K/uL MPV (7.4-10.4) fL Immature Gran % (Auto) % Neut % (Auto) % Lymph % (Auto) % [place] % (Auto) % Eos % (Auto) % Baso % (Auto) % Immature Gran # (Auto) (0.00-0.02) K/uL Neut # (Auto) (1.4-6.5) K/uL Lymph # (Auto) (1.2-3.4) K/uL [place] # (Auto) (0.11-0.59) K/uL Eos # (Auto) (0-0.5) K/uL Baso # (Auto) (0-0.2) K/uL ESR (0-14) mm/hr PT (9.0-12.0) Seconds INR (0.9-1.1) APTT (21.0-31.0) Seconds PTT Ratio VBG pH (7.36-7.41) VBG pCO2 (38-50) mmHg VBG pO2 mmHg VBG HCO3 mmol/L VBG O2 Saturation % VBG Base Excess mEq/L Barometric Pressure mm/Hg Sodium (136-145) mmol/L Potassium (3.5-5.1) mmol/L Chloride (98-107) mmol/L Carbon Dioxide (21-32) mmol/L Anion Gap (3-11) BUN (7-18) mg/dl Creatinine (0.6-1.4) mg/dl Est Cr Clr Drug Dosing ml/min Est GFR ( Amer) Est GFR (Non-Af Amer) BUN/Creatinine Ratio (10-20) Glucose (70-99) mg/dl POC Glucose (70-99) Lactate 1.1 (0.4-2.0) mmol/L Calcium (8.5-10.1) mg/dl Ionized Calcium Cancelled Magnesium (1.8-2.4) mg/dl Total Bilirubin (0.2-1) mg/dl AST (15-37) U/L ALT (12-78) U/L Alkaline Phosphatase (45-117) U/L Total Creatine Kinase 6880 H (39-308) U/L CK-MB (CK-2) (0.5-3.6) ng/ml Troponin I (0-0.045) ng/ml C-Reactive Protein (0-0.29) mg/dl Total Protein (6.4-8.2) gm/dl Albumin (3.4-5.0) gm/dl Globulin (2.5-4.0) gm/dl Albumin/Globulin Ratio (0.9-2) Procalcitonin (0-0.5) ng/ml Urine Color Urine Appearance (Clear) Urine pH (4.5-7.5) Ur Specific [place] (1.000-1.030) Urine Protein (Negative) Urine Glucose (UA) (Negative) Urine Ketones (Negative) Urine Blood (Negative) Urine Nitrite (Negative) Urine Bilirubin (Negative) Urine Urobilinogen (Negative) Ur Leukocyte Esterase (Negative) Urine WBC (Auto) (0-5) /hpf Urine RBC (Auto) (0-4) /hpf U Hyaline Cast (Auto) (0-5) /lpf U Epithel Cells (Auto) (0-5) /lpf Urine Bacteria (Auto) (Negative) Urine Crystals Calcium Oxalate Crystal (None Prsent) Amorphous Sediment (None Prsent) Salicylates (2.8-20) mg/dl Urine Opiates Screen (Neg) Ur Methadone, Qual (Neg) Acetaminophen (10-30) ug/ml Urine Barbiturates (Neg) Ur Phencyclidine (PCP) (Neg) U Amphetamin/Meth Scrn (Neg) MDMA (Ecstasy) Screen (Neg) U Benzodiazepines Scrn (Neg) Ur Cocaine Metabolite (Neg) U Marijuana (THC) Screen (Neg) Ethyl Alcohol mg/dL (0-3) mg/dl 05/05/19 05/05/19 05/05/19 Range/Units 14:04 14:04 14:17 WBC (4.8-10.8) K/uL RBC (4.7-6.1) M/uL Hgb (14.0-18.0) g/dL Hct (42-52) % MCV (80-100) fL MCH (25-34) pg MCHC (32-36) g/dL RDW Std Deviation (36.4-46.3) fL RDW Coeff of Katherine (11.5-14.5) % Plt Count (130-400) K/uL MPV (7.4-10.4) fL Immature Gran % (Auto) % Neut % (Auto) % Lymph % (Auto) % [place] % (Auto) % Eos % (Auto) % Baso % (Auto) % Immature Gran # (Auto) (0.00-0.02) K/uL Neut # (Auto) (1.4-6.5) K/uL Lymph # (Auto) (1.2-3.4) K/uL [place] # (Auto) (0.11-0.59) K/uL Eos # (Auto) (0-0.5) K/uL Baso # (Auto) (0-0.2) K/uL ESR (0-14) mm/hr PT (9.0-12.0) Seconds INR (0.9-1.1) APTT (21.0-31.0) Seconds PTT Ratio VBG pH (7.36-7.41) VBG pCO2 (38-50) mmHg VBG pO2 mmHg VBG HCO3 mmol/L VBG O2 Saturation % VBG Base Excess mEq/L Barometric Pressure mm/Hg Sodium (136-145) mmol/L Potassium (3.5-5.1) mmol/L Chloride (98-107) mmol/L Carbon Dioxide (21-32) mmol/L Anion Gap (3-11) BUN (7-18) mg/dl Creatinine (0.6-1.4) mg/dl Est Cr Clr Drug Dosing ml/min Est GFR ( Amer) Est GFR (Non-Af Amer) BUN/Creatinine Ratio (10-20) Glucose (70-99) mg/dl POC Glucose (70-99) Lactate (0.4-2.0) mmol/L Calcium (8.5-10.1) mg/dl Ionized Calcium 0.57 L* Magnesium (1.8-2.4) mg/dl Total Bilirubin (0.2-1) mg/dl AST (15-37) U/L ALT (12-78) U/L Alkaline Phosphatase (45-117) U/L Total Creatine Kinase (39-308) U/L CK-MB (CK-2) (0.5-3.6) ng/ml Troponin I (0-0.045) ng/ml C-Reactive Protein (0-0.29) mg/dl Total Protein (6.4-8.2) gm/dl Albumin (3.4-5.0) gm/dl Globulin (2.5-4.0) gm/dl Albumin/Globulin Ratio (0.9-2) Procalcitonin (0-0.5) ng/ml Urine Color Dark Yellow Urine Appearance Cloudy A (Clear) Urine pH 5.0 (4.5-7.5) Ur Specific [place] 1.030 (1.000-1.030) Urine Protein Trace H (Negative) Urine Glucose (UA) 1+ H (Negative) Urine Ketones Negative (Negative) Urine Blood 1+ H (Negative) Urine Nitrite Negative (Negative) Urine Bilirubin Negative (Negative) Urine Urobilinogen Negative (Negative) Ur Leukocyte Esterase 1+ H (Negative) Urine WBC (Auto) 1-5 (0-5) /hpf Urine RBC (Auto) 10-30 H (0-4) /hpf U Hyaline Cast (Auto) 1-5 (0-5) /lpf U Epithel Cells (Auto) 20-30 H (0-5) /lpf Urine Bacteria (Auto) Negative (Negative) Urine Crystals Not Reportable Calcium Oxalate Crystal Present A (None Prsent) Amorphous Sediment Present A (None Prsent) Salicylates (2.8-20) mg/dl Urine Opiates Screen Pos H (Neg) Ur Methadone, Qual Neg (Neg) Acetaminophen (10-30) ug/ml Urine Barbiturates Neg (Neg) Ur Phencyclidine (PCP) Neg (Neg) U Amphetamin/Meth Scrn Neg (Neg) MDMA (Ecstasy) Screen Neg (Neg) U Benzodiazepines Scrn Neg (Neg) Ur Cocaine Metabolite Neg (Neg) U Marijuana (THC) Screen Neg (Neg) Ethyl Alcohol mg/dL (0-3) mg/dl Imaging Data Radiologist's Impression: Radiology results as stated below per my review and the radiologist's interpretation: SINGLE VIEW CHEST CLINICAL HISTORY: Sepsis. FINDINGS: An AP, portable, upright chest radiograph is compared to study dated 04/06/2016. The examination is degraded by portable technique and patient rotation. The cardiomediastinal silhouette is unremarkable. There is elevation of the right hemidiaphragm and bibasilar atelectasis. No large pleural effusion or pneumothorax is seen. The skeletal structures are osteopenic. The bony thorax is grossly intact. Fusion hardware is noted in the lower cervical spine. IMPRESSION: 1. There is no acute cardiopulmonary abnormality. 2. Elevation of the right hemidiaphragm and bibasilar atelectasis. Electronically signed by: Tate Ta M.D. 05/05/2019 12:[address] head/brain wo con CLINICAL HISTORY: 54 years-old Male with alatered. Acutely altered mental status TECHNIQUE: Multiple axial CT images of the head were obtained without contrast. A dose lowering technique was utilized adhering to the principles of ALARA. CT DOSE: 1459.56 mGycm COMPARISON: None. FINDINGS: Motion degraded exam. No acute intracranial hemorrhage, midline shift, intracranial mass, hydrocephalus, territorial ischemia or abnormal extra-axial collection. Minimal cerebral vascular calcifications are noted. The calvarium is intact. Minimal mucosal thickening of the ethmoid and maxilla ry sinuses. Mastoid air cells are clear. Soft tissues and orbits are unremarkable. IMPRESSION: Motion degraded exam. No acute intracranial abnormality identified. The above report was generated using voice recognition software. It may contain grammatical, syntax or spelling errors. Electronically signed by: Sujit Le M.D. 05/05/2019 1:[address] SCAN OF THE ABDOMEN AND PELVIS WITHOUT IV CONTRAST CLINICAL HISTORY: General is abdominal pain. Abdominal distention. COMPARISON STUDY: Abdominal CT dated 04/07/2016. TECHNIQUE: CT scan of the abdomen and pelvis is performed from the lung bases to the proximal femora. Images are reviewed in the axial, sagittal, and coronal planes. IV contrast was not administered for this examination as per the referring clinician. Note that the examination was performed in suboptimal fashion without oral and IV contrast. A dose lowering technique was utilized adhering to the principles of ALARA. CT DOSE: 1083.08 mGycm FINDINGS: Lung bases: The heart is mildly enlarged and without pericardial effusion. There are coronary artery calcifications. There is elevation of the right hemidiaphragm with segmental atelectasis at the right lung base. Subsegmental atelectasis is seen at the left lung base. There is trace right pleural effusion. A small hiatal hernia is noted. Liver: The unenhanced liver is enlarged, measuring 21.6 cm in length. The liver is cirrhotic in morphology, noting hypertrophy of the left lobe and caudate and nodularity of the surface contour. The liver demonstrates diffusely diminished attenuation consistent with hepatic steatosis. There is no intrahepatic biliary ductal dilatation. Gallbladder: The gallbladder is mildly distended. There are layering calcified gallstones. Mild gallbladder wall thickening is nonspecific. Spleen: The spleen is enlarged, measuring 15.2 cm in length. Pancreas: The unenhanced pancreas is grossly unremarkable. Adrenal glands: Unremarkable. Kidneys: The unenhanced kidneys are normal in size and without hydronephrosis. There are no renal calculi identified. There is no evidence of contour deforming renal mass lesion. Abdominal vasculature: The abdominal aorta is normal in course and caliber noting mild atherosclerotic calcification. Bowel: There are postoperative changes from right hemicolectomy with ileocolic anastomosis. No bowel obstruction is seen. Mild to moderate colonic fecal retention is observed. Peritoneum: There is no intraperitoneal free air or abdominal ascites. There is laxity of the ventral abdominal wall and diastases of the rectus musculature. Lymphadenopathy: Prominent upper abdominal and peripancreatic lymph nodes are likely related to 6 chronic liver disease. Pelvic viscera: The there is median lobe hypertrophy of the prostate gland. The bladder wall is mildly thickened and trabeculated indicating chronic outlet obstruction. Skeletal structures: There is mild lumbosacral spondylosis. No lytic or blastic lesions are seen. IMPRESSION: 1. Suboptimal examination without oral and IV contrast. 2. The liver is enlarged, cirrhotic in morphology, and shows evidence of steatosis. 3. Splenomegaly. 4. The gallbladder is distended and there are calcified gallstones. Gallbladder wall thickening is nonspecific and may be related to chronic liver disease. Correlate with clinical findings and liver function studies for evidence of acute cholecystitis. Ultrasound should be considered for further assessment if clinically warranted. 5. There are postoperative changes of right hemicolectomy with ileocolic anastomosis. No bowel obstruction is identified. 6. Additional findings as above. Electronically signed by: Tate Ta M.D. 05/05/2019 1:53 PM ECG Data Attestation: I personally reviewed and interpreted this ECG as follows: Indication: altered mental status Rate (beats per minute): 85 Rhythm: normal sinus Findings: + RBBB; no PAC, no PVC and no ectopy Comparison ECG Date: from (04/06/16) Change: the following changes noted (changes are new) Blood Pressure Blood Pressure Findings: Low blood pressure Blood Pressure Disposition: further management by hospitalist [facility] Narrative The patient is a 54-year-old male who presented to the emergency department by ambulance for an evaluation of altered mental status. The patient was very listless and appeared to be encephalopathic. The patient ultimately was found to have renal failure with hyperkalemia requiring IV fluids as well as IV calcium dextrose and insulin. The patient was reevaluated multiple times. I discussed the patient's laboratory and radiographic studies with him. On subsequent reevaluation he was feeling somewhat improved. A Fitzgerald catheter was placed. I discussed the patient's condition with the on-call [facility] hospitalist. I also discussed this case with the on-call plant maintenance engineer as well as the on-call correction officer. It is likely the patient may require emergent dialysis if his symptoms do not improve. The patient was reevaluated multiple times. He was given a dose of IV antibiotics. The patient was also found to have an elevated CPK. He takes multiple medications for pain and is possible this may represent some degree of rhabdomyolysis. Impression & Plan Pulmonary edema, Renal failure, Hypoxia, Rhabdomyolysis, Non-traumatic rhabdomyolysis Critical Care Time Critical Care Time: Yes Total Critical Care Time: 60 I have personally spent 60 minutes of critical care time in the direct management of this patient. This includes bedside care, interpretation of diagnostic studies, and testing, discussion with consultants, patient, and family members, and other required patient management activities. This 60 minutes is in excess of all separately billable procedures. Discharge Plan Visit Data *Final* Discharge Date/Time: 05/05/19 15:04 Chief Complaint: Lethargic ED Provider: Montrell Griffiths Discharge Problem: Pulmonary edema, Renal failure, Hypoxia, Rhabdomyolysis, Non-traumatic rhabdomyolysis Patient Disposition: Admitted As Inpatient Discharge Instructions Interventions: ED Discharge Assessment Last Done: 05/05/19 15:04 Discharge Problem: Pulmonary edema Qualifiers: Chronicity: acute Qualified Code(s): J81.0 - Acute pulmonary edema Renal failure Qualifiers: Renal failure chronicity: acute Acute renal failure type: unspecified Qualified Code(s): N17.9 - Acute kidney failure, unspecified Rhabdomyolysis Qualifiers: Rhabdomyolysis type: traumatic Encounter type: initial encounter Qualified Code(s): T79.6XXA - Traumatic ischemia of muscle, initial encounter The scribe's documentation has been prepared under my direction and personally reviewed by me in its entirety. I confirm that the note above accurately reflects all work, treatment, procedures, and medical decision making performed by me.
[2019-05-05 17:45] LABS: BUN Creatinine Ratio 8.4 (10-20); Creatinine Clr Calc Pharmacy 7.7 ml/min; Est GFR (African American) 4.5; Est GFR (Non-African American) 3.9; Potassium 6.7 mmol/L (3.5-5.1)
[2019-05-05] MEDS ORDERED: CALCIUM GLUCONATE 10% 2,000 MG in SODIUM CHLORIDE 0.9% 50 ML IV ONE (17:45)
[2019-05-05] MEDS: INSULIN ASPART 100 UNITS/ML 3 ML PEN SC SCH (17:54)
--- NOTE | 2019-05-05 17:54 | Nephrology Consultation ---
Date of Consultation May 05, 2019 Assessment & Plan (1) Metabolic acidosis: primary acid base disturbance is severe anion gap metabolic acidosis more than likely from renal failure. tylenol, ASA, lactic acid levels wnl; EtOH not detectable; no ketonuria: leaves renal failure as likeliest cause; will evaluate osmolar gap for completeness to r/o methanol/ethylene glycol toxicities much lower on differential. pt also with respiratory acidosis based on Winter's formula; w/ metabolic alkalosis of ? etiology, possibly contraction alkalosis from decreased po. pt taking metformin but lactic acid is wnl, so not a likely cause here. -defer decisions about intubation to ICU -needs emergent dialysis this evening to get control of hyperkalemia, metabolic acidemia and for clearance of gabapentin, elevated levels of which may contribute to his metabolic encephalopathy: spent > 10 minutes discussing indications/ risks /benefits w/ pt family; consent obtained and on chart; dialysis for clearance and correction of electrolyte issues (acidosis, potassium in particular; calcium to a degree; removal of known and as yet unknown toxins) -added serum osms, phosporus, TSH to most recent/next labs Present on Admission?: Yes (2) Acute kidney failure: oliguric acute renal failure with baseline creatinine early february 0.9. urine sediment contracted/traumatic; not c/w infection. not particularly consistent with vasculitis or glomerulonephritis. no ketonuria/ some glucosuria c/w DM medications. severe acidemia as above and potentially life threatening hyperkalemia, hypocalcemia. not overloaded on exam and if anything looks dehydrated; not severely anemic -continue bicarb gtt 250 mL /hr or as aggressively as tolerated -emergent dialysis 2 hrs this evening; no UF -reassess in am for repeat tx depending on clinical status -duration of need for dialysis unknown currently -bmp q 8-12 hrs Present on Admission?: Yes (3) Non-traumatic rhabdomyolysis: CK 6880 on presentation >> ? from sitting in same position per family report for 36 hours; ? from statin; from occult infection; -continue aggressive hydration as tolerated with D5W and 150 mEq/L sodium bicarbonate at 250 mL/hour or as respiratory status tolerates -strict I/O -added phos to his most recent labs -hypocalcemia c/w rhabdo: ca replacement not routinely done w/ this condition; he has had 3 gm IV calcium and is barely holding ionized levels -w/ his advanced renal failure, aggressive fluids may not be enough to clear CK -repeat CK in AM or with next labs (q 8-12 hrs) -f/u pending blood cultures Present on Admission?: Yes (4) Alcohol abuse: watch for alcohol withdrawal/ DT > defer to primary service on this Present on Admission?: Yes History of Present Illness Reason for Consultation: acute renal failure, hyperkalemia, ? rhabdo Requesting Physician: Dr Parker Attending Physician: Jose Elias Rios MD History of Present Illness 54 y/o M whom I'm asked to see for markedly worsened renal function today. EMS inocencia him from home after several days of altered behavior and essentially sitting on his couch w/o moving/speaking coherently/ or taking pills/po since 05/03 pm. PMH includes DM on po meds, HTN, chronic pain, hyperlipidemia, OLEKSANDR, active tobacco abuse (1 PPD x 2 years; remote hx much heavier use), active alchohol abuse (5-8 16 oz beers daily -/+ pint of kilo daily), s/p R ishan colectomy w/ ileocolic anastomosis, liver cirrhosis. he takes lisinopril, metformin, empagliflozin, and sitagliptin as outpatient. he is on a statin; also on baclofen, fentanyl, and high dose neurontin as OP. On arrival to ER, pt had creatinine of 13, K 6.5; CK 6880; ionized calcium 0.56; anion gap 26. pH on ABG 7.13, pC02 32; p02 80; bicarb on blood gas 11. at 1445 he had iv insulin, calcium gluconate; 2L NS; valdez was placed; we started him on bicarb gtt as well. tylenol levels undetectable; ASA not elevated. urine tox screen negative. I have been discussing his care w/ Dr. Griffiths and with admitting medicine team as well; pt admitted now to ICU w/ possibility of urgent dialysis. Pt w/ some RUQ pain and GB thickening in CT >> surgery following. His last OP creatinine was 0.9 in early February 2019; consistently in this range. His and daughter are at bedside. his daughter states pt announced he'd hurt his back after twisting it on 05/01. The went to a on 05/02: daughter noted at that time extra lethargy, some confusion and diminished speech which she attributed to an extra pain pill. Allergies Allergy/AdvReac Type Severity Reaction Status Date / Time pregabalin Allergy Unknown Tremor Verified 05/05/19 13:11 Iodinated Contrast- Oral and AdvReac Unknown JITTERY Verified 05/05/19 13:11 IV Dye Home Medications Home Medications Medication Instructions Recorded Confirmed Type albuterol sulfate [Ventolin HFA] 2 puff INHALATION QID PRN 05/05/19 05/05/19 History amlodipine 10 mg PO DAILY 05/05/19 05/05/19 History aspirin [Aspir-81] 81 mg PO DAILY 05/05/19 05/05/19 History atorvastatin 40 mg PO HS 05/05/19 05/05/19 History coenzyme Q10 200 mg PO DAILY 05/05/19 05/05/19 History duloxetine 60 mg PO DAILY 05/05/19 05/05/19 History empagliflozin 10 mg PO DAILY 05/05/19 05/05/19 History fentanyl 1 patch TRANSDERMAL Q72H 05/05/19 05/05/19 History folic acid 1 mg PO DAILY 05/05/19 05/05/19 History gabapentin 600 mg PO TID 05/05/19 05/05/19 History lisinopril 40 mg PO DAILY 05/05/19 05/05/19 History multivitamin with minerals 1 tab PO DAILY 05/05/19 05/05/19 History [Multiple Vitamin-Minerals] oxycodone-acetaminophen 1 tab PO Q8H PRN 05/05/19 05/05/19 History oxymetazoline 1 spray INTRANASAL HS PRN 05/05/19 05/05/19 History sitagliptin-metformin 1 tab PO BID 05/05/19 05/05/19 History Patient History Medical History T2DM (type 2 diabetes mellitus) MDD (major depressive disorder) (Chronic) HTN (hypertension) (Chronic) HLD (hyperlipidemia) (Chronic) GERD (gastroesophageal reflux disease) (Chronic) Abnormal LFTs (Chronic) Chronic pain syndrome (Chronic) Hypersomnia with sleep apnea (Chronic 12/01/12) Critical care time 35 minutes COPD (chronic obstructive pulmonary disease) (Chronic) Alcohol abuse Tobacco abuse Surgical History H/O shoulder surgery (Chronic) H/O knee surgery (Chronic) History of carpal tunnel surgery (Chronic) History of appendectomy (Chronic) H/O hernia repair (Chronic) Family History Mother Coronary heart disease Diabetes Lung disease Father Coronary heart disease Diabetes Cancer renal cell Social History Preferred Language: Serbian Communication Ability: Impaired Communication Ability Comment: altered mental status at this time Social Service Manager Required: No Beliefs That Will Affect Care: None marital status: Current Living Situation: Spouse Feels Safe at Home: Yes Smoking Status: Current every day smoker Tobacco Type: cigarettes Cigarettes Per Day: 1 ppd Do You Dip or Chew Tobacco: No Second Hand Exposure: Yes Tobacco Cessation Education Requested by Patient: Yes Hx Alcohol Use: Yes Alcohol type: beer Alcohol Intake Frequency Comment: 4 beers daily Hx Substance Use: Yes substance use type: prescription drug Substance Use Type Other:: On Fentanyl and percocet Last Used Substance Other:: sunday evening percoset. was wearing fentanyl patch Review of Systems Review of Systems: Unobtainable due to reduced consciousness Physical Exam Constitutional: well developed, well nourished, + obese, + altered mental status and + lethargic grunts/groans; tracks briefly Eyes: EOM intact bilaterally ENMT: Ears: no external ear abnormality Nose: no external nose abnormality Mouth: + dry oral mucous membranes Neck: + thick neck; no nuchal rigidity Respiratory: + labored breathing and + tachypneic; does not use accessory muscles and expiratory phase not prolonged Auscultation: lungs clear to auscultation bilaterally and + diminished lung sounds Cardiovascular: Rate/Rhythm: regular rhythm and + tachycardic Heart Sounds: normal S1, normal S2 and + murmur Extremities: no edema Gastrointestinal (Abdomen): Inspection/Auscultation: + abdomen distended and normal bowel sounds Percussion/Palpation: + abdomen tender (focal tenderness to moderate palpation RUQ) and abdomen soft; no ascites Musculoskeletal: sabillon Skin: no rashes, warm and dry no jaundice Neurologic: myoclonic jerks of limbs; sabillon; obtunded/lethargic Psychiatric: cannot obsess d/t clinical condition Genitourinary: valdez w/ scant urine > about 30 mL from [id number] Results & Data Vital Signs (Past 12 Hours) Vital Signs Temp Pulse Pulse Resp BP BP Pulse Ox 05/05/19 16:00 36.4 C L 92 H 93 H 24 116/60 116/60 91 05/05/19 15:33 36.4 C L 92 H 101/56 L 91 05/05/19 15:04 36.5 C 91 H 15 132/56 L 93 05/05/19 15:03 84 15 132/56 L 93 05/05/19 15:01 90 21 112/46 L 93 05/05/19 15:00 88 21 93 05/05/19 14:46 91 H 20 108/55 L 93 05/05/19 14:45 92 H 17 93 05/05/19 14:31 91 H 15 132/56 L 93 05/05/19 14:30 91 H 21 93 05/05/19 14:16 87 23 109/49 L 94 05/05/19 14:15 87 20 94 05/05/19 14:05 85 17 91 05/05/19 14:04 84 17 98/47 L 91 05/05/19 14:01 86 17 86 L 05/05/19 14:00 86 86 17 101/61 101/61 91 05/05/19 13:57 85 85 17 92/54 L 92/54 L 91 05/05/19 13:45 84 14 93 05/05/19 13:33 85 12 05/05/19 13:01 86 19 120/52 L 92 05/05/19 13:00 86 20 93 05/05/19 12:46 86 13 114/54 L 92 05/05/19 12:45 85 85 20 114/54 L 91 05/05/19 12:33 84 84 20 91/45 L 91/45 L 93 05/05/19 12:30 85 21 93 05/05/19 12:18 84 29 H 95 05/05/19 12:17 84 27 H 144/51 H 91 05/05/19 12:16 86 86 H 144/51 H 91 05/05/19 12:15 85 26 H 88 L 05/05/19 12:13 36.5 C 86 85 28 H 115/47 L 92 05/05/19 12:09 86 23 69 L 05/05/19 12:06 86 86 22 115/47 L 115/47 L 91 05/05/19 11:41 85 27 H 110/71 91 05/05/19 11:36 36.5 C 85 85 26 H 110/71 110/71 87 L Laboratory Results Abnormal lab results 05/05/19 05/05/19 05/05/19 Range/Units 12:21 12:48 12:48 WBC 11.72 H (4.8-10.8) K/uL RBC 3.72 L (4.7-6.1) M/uL Hgb 12.0 L (14.0-18.0) g/dL Hct 34.3 L (42-52) % RDW Std Deviation 49.9 H (36.4-46.3) fL RDW Coeff of Katherine 14.7 H (11.5-14.5) % Immature Gran # (Auto) 0.06 H (0.00-0.02) K/uL Neut # (Auto) 8.03 H (1.4-6.5) K/uL Branch # (Auto) 1.01 H (0.11-0.59) K/uL ESR (0-14) mm/hr APTT (21.0-31.0) Seconds POC pH (7.35-7.45) POC pCO2 (35-46) mmHg POC HCO3 (19-24) susanna/L POC Total CO2 (24-31) mEq/l POC Base Excess (-9-1.8) susanna/L VBG pH (7.36-7.41) VBG pCO2 (38-50) mmHg Sodium (136-145) mmol/L Potassium (3.5-5.1) mmol/L Chloride (98-107) mmol/L Carbon Dioxide (21-32) mmol/L Anion Gap (3-11) BUN (7-18) mg/dl Creatinine (0.6-1.4) mg/dl BUN/Creatinine Ratio (10-20) Glucose (70-99) mg/dl POC Glucose 160 H (70-99) Calcium (8.5-10.1) mg/dl Ionized Calcium (1.12-1.32) mmol/L Magnesium (1.8-2.4) mg/dl AST (15-37) U/L ALT (12-78) U/L Total Creatine Kinase (39-308) U/L CK-MB (CK-2) (0.5-3.6) ng/ml C-Reactive Protein (0-0.29) mg/dl Total Protein (6.4-8.2) gm/dl Globulin (2.5-4.0) gm/dl Albumin/Globulin Ratio (0.9-2) Procalcitonin 7.02 H (0-0.5) ng/ml Urine Appearance (Clear) Urine Protein (Negative) Urine Glucose (UA) (Negative) Urine Blood (Negative) Ur Leukocyte Esterase (Negative) Urine RBC (Auto) (0-4) /hpf U Epithel Cells (Auto) (0-5) /lpf Calcium Oxalate Crystal (None Prsent) Amorphous Sediment (None Prsent) Salicylates (2.8-20) mg/dl Urine Opiates Screen (Neg) Acetaminophen (10-30) ug/ml 05/05/19 05/05/19 05/05/19 Range/Units 12:48 12:48 12:48 WBC (4.8-10.8) K/uL RBC (4.7-6.1) M/uL Hgb (14.0-18.0) g/dL Hct (42-52) % RDW Std Deviation (36.4-46.3) fL RDW Coeff of Katherine (11.5-14.5) % Immature Gran # (Auto) (0.00-0.02) K/uL Neut # (Auto) (1.4-6.5) K/uL Branch # (Auto) (0.11-0.59) K/uL ESR 83 H (0-14) mm/hr APTT 34.5 H (21.0-31.0) Seconds POC pH (7.35-7.45) POC pCO2 (35-46) mmHg POC HCO3 (19-24) susanna/L POC Total CO2 (24-31) mEq/l POC Base Excess (-9-1.8) susanna/L VBG pH (7.36-7.41) VBG pCO2 (38-50) mmHg Sodium 126 L (136-145) mmol/L Potassium 6.5 H* (3.5-5.1) mmol/L Chloride 90 L (98-107) mmol/L Carbon Dioxide 11 L (21-32) mmol/L Anion Gap 26.0 H (3-11) BUN 105 H (7-18) mg/dl Creatinine 13.40 H* (0.6-1.4) mg/dl BUN/Creatinine Ratio 7.8 L (10-20) Glucose 152 H (70-99) mg/dl POC Glucose (70-99) Calcium 5.4 L* (8.5-10.1) mg/dl Ionized Calcium (1.12-1.32) mmol/L Magnesium 3.0 H (1.8-2.4) mg/dl AST 262 H (15-37) U/L ALT 118 H (12-78) U/L Total Creatine Kinase (39-308) U/L CK-MB (CK-2) 91.1 H (0.5-3.6) ng/ml C-Reactive Protein 9.37 H (0-0.29) mg/dl Total Protein 8.7 H (6.4-8.2) gm/dl Globulin 5.1 H (2.5-4.0) gm/dl Albumin/Globulin Ratio 0.7 L (0.9-2) Procalcitonin (0-0.5) ng/ml Urine Appearance (Clear) Urine Protein (Negative) Urine Glucose (UA) (Negative) Urine Blood (Negative) Ur Leukocyte Esterase (Negative) Urine RBC (Auto) (0-4) /hpf U Epithel Cells (Auto) (0-5) /lpf Calcium Oxalate Crystal (None Prsent) Amorphous Sediment (None Prsent) Salicylates (2.8-20) mg/dl Urine Opiates Screen (Neg) Acetaminophen (10-30) ug/ml 05/05/19 05/05/19 05/05/19 Range/Units 12:48 12:48 13:54 WBC (4.8-10.8) K/uL RBC (4.7-6.1) M/uL Hgb (14.0-18.0) g/dL Hct (42-52) % RDW Std Deviation (36.4-46.3) fL RDW Coeff of Katherine (11.5-14.5) % Immature Gran # (Auto) (0.00-0.02) K/uL Neut # (Auto) (1.4-6.5) K/uL Branch # (Auto) (0.11-0.59) K/uL ESR (0-14) mm/hr APTT (21.0-31.0) Seconds POC pH (7.35-7.45) POC pCO2 (35-46) mmHg POC HCO3 (19-24) susanna/L POC Total CO2 (24-31) mEq/l POC Base Excess (-9-1.8) susanna/L VBG pH 7.17 L (7.36-7.41) VBG pCO2 28 L (38-50) mmHg Sodium (136-145) mmol/L Potassium (3.5-5.1) mmol/L Chloride (98-107) mmol/L Carbon Dioxide (21-32) mmol/L Anion Gap (3-11) BUN (7-18) mg/dl Creatinine (0.6-1.4) mg/dl BUN/Creatinine Ratio (10-20) Glucose (70-99) mg/dl POC Glucose (70-99) Calcium (8.5-10.1) mg/dl Ionized Calcium (1.12-1.32) mmol/L Magnesium (1.8-2.4) mg/dl AST (15-37) U/L ALT (12-78) U/L Total Creatine Kinase 6880 H (39-308) U/L CK-MB (CK-2) (0.5-3.6) ng/ml C-Reactive Protein (0-0.29) mg/dl Total Protein (6.4-8.2) gm/dl Globulin (2.5-4.0) gm/dl Albumin/Globulin Ratio (0.9-2) Procalcitonin (0-0.5) ng/ml Urine Appearance (Clear) Urine Protein (Negative) Urine Glucose (UA) (Negative) Urine Blood (Negative) Ur Leukocyte Esterase (Negative) Urine RBC (Auto) (0-4) /hpf U Epithel Cells (Auto) (0-5) /lpf Calcium Oxalate Crystal (None Prsent) Amorphous Sediment (None Prsent) Salicylates 2.7 L (2.8-20) mg/dl Urine Opiates Screen (Neg) Acetaminophen < 2 L (10-30) ug/ml 05/05/19 05/05/19 05/05/19 Range/Units 14:04 14:04 14:17 WBC (4.8-10.8) K/uL RBC (4.7-6.1) M/uL Hgb (14.0-18.0) g/dL Hct (42-52) % RDW Std Deviation (36.4-46.3) fL RDW Coeff of Katherine (11.5-14.5) % Immature Gran # (Auto) (0.00-0.02) K/uL Neut # (Auto) (1.4-6.5) K/uL Branch # (Auto) (0.11-0.59) K/uL ESR (0-14) mm/hr APTT (21.0-31.0) Seconds POC pH (7.35-7.45) POC pCO2 (35-46) mmHg POC HCO3 (19-24) susanna/L POC Total CO2 (24-31) mEq/l POC Base Excess (-9-1.8) susanna/L VBG pH (7.36-7.41) VBG pCO2 (38-50) mmHg Sodium (136-145) mmol/L Potassium (3.5-5.1) mmol/L Chloride (98-107) mmol/L Carbon Dioxide (21-32) mmol/L Anion Gap (3-11) BUN (7-18) mg/dl Creatinine (0.6-1.4) mg/dl BUN/Creatinine Ratio (10-20) Glucose (70-99) mg/dl POC Glucose (70-99) Calcium (8.5-10.1) mg/dl Ionized Calcium 0.57 L* (1.12-1.32) mmol/L Magnesium (1.8-2.4) mg/dl AST (15-37) U/L ALT (12-78) U/L Total Creatine Kinase (39-308) U/L CK-MB (CK-2) (0.5-3.6) ng/ml C-Reactive Protein (0-0.29) mg/dl Total Protein (6.4-8.2) gm/dl Globulin (2.5-4.0) gm/dl Albumin/Globulin Ratio (0.9-2) Procalcitonin (0-0.5) ng/ml Urine Appearance Cloudy A (Clear) Urine Protein Trace H (Negative) Urine Glucose (UA) 1+ H (Negative) Urine Blood 1+ H (Negative) Ur Leukocyte Esterase 1+ H (Negative) Urine RBC (Auto) 10-30 H (0-4) /hpf U Epithel Cells (Auto) 20-30 H (0-5) /lpf Calcium Oxalate Crystal Present A (None Prsent) Amorphous Sediment Present A (None Prsent) Salicylates (2.8-20) mg/dl Urine Opiates Screen Pos H (Neg) Acetaminophen (10-30) ug/ml 05/05/19 05/05/19 05/05/19 Range/Units 16:42 16:42 17:09 WBC (4.8-10.8) K/uL RBC (4.7-6.1) M/uL Hgb (14.0-18.0) g/dL Hct (42-52) % RDW Std Deviation (36.4-46.3) fL RDW Coeff of Katherine (11.5-14.5) % Immature Gran # (Auto) (0.00-0.02) K/uL Neut # (Auto) (1.4-6.5) K/uL Branch # (Auto) (0.11-0.59) K/uL ESR (0-14) mm/hr APTT (21.0-31.0) Seconds POC pH 7.13 L* (7.35-7.45) POC pCO2 32 L (35-46) mmHg POC HCO3 11 L (19-24) susanna/L POC Total CO2 12 L (24-31) mEq/l POC Base Excess -18.0 L (-9-1.8) susanna/L VBG pH (7.36-7.41) VBG pCO2 (38-50) mmHg Sodium 130 L (136-145) mmol/L Potassium 6.7 H* (3.5-5.1) mmol/L Chloride 96 L (98-107) mmol/L Carbon Dioxide 12 L (21-32) mmol/L Anion Gap 22.0 H (3-11) BUN 107 H (7-18) mg/dl Creatinine 12.80 H* D (0.6-1.4) mg/dl BUN/Creatinine Ratio 8.4 L (10-20) Glucose 125 H (70-99) mg/dl POC Glucose (70-99) Calcium 5.0 L* (8.5-10.1) mg/dl Ionized Calcium 0.56 L* (1.12-1.32) mmol/L Magnesium (1.8-2.4) mg/dl AST (15-37) U/L ALT (12-78) U/L Total Creatine Kinase (39-308) U/L CK-MB (CK-2) (0.5-3.6) ng/ml C-Reactive Protein (0-0.29) mg/dl Total Protein (6.4-8.2) gm/dl Globulin (2.5-4.0) gm/dl Albumin/Globulin Ratio (0.9-2) Procalcitonin (0-0.5) ng/ml Urine Appearance (Clear) Urine Protein (Negative) Urine Glucose (UA) (Negative) Urine Blood (Negative) Ur Leukocyte Esterase (Negative) Urine RBC (Auto) (0-4) /hpf U Epithel Cells (Auto) (0-5) /lpf Calcium Oxalate Crystal (None Prsent) Amorphous Sediment (None Prsent) Salicylates (2.8-20) mg/dl Urine Opiates Screen (Neg) Acetaminophen (10-30) ug/ml Diagnostic Findings cxr 1. There is no acute cardiopulmonary abnormality. 2. Elevation of the right hemidiaphragm and bibasilar atelectasis abd/pelvis CT 1. Suboptimal examination without oral and IV contrast. 2. The liver is enlarged, cirrhotic in morphology, and shows evidence of steatosis. 3. Splenomegaly. 4. The gallbladder is distended and there are calcified gallstones. Gallbladder wall thickening is nonspecific and may be related to chronic liver disease. Correlate with clinical findings and liver function studies for evidence of acute cholecystitis. Ultrasound should be considered for further assessment if clinically warranted. 5. There are postoperative changes of right hemicolectomy with ileocolic anastomosis. No bowel obstruction is identified. abd u/s report pending head CT motion degraded exam; no acute i-c process (1) Acute kidney failure Acute renal failure type: unspecified Qualified Code(s): N17.9 - Acute kidney failure, unspecified
--- NOTE | 2019-05-05 18:26 | Ultrasound Report ---
US abdomen limited HISTORY: 54 years-old Male RUQ abdominal pain, r/o cholecystitis acute right upper quadrant abdomina l pain COMPARISON: CT abdomen and pelvis of same day TECHNIQUE: Multiple real-time sonographic images of the abdominal right upper quadrant were obtained assessing grayscale appearance and color flow FINDINGS: Study is limited secondary to patient condition. Visualized pancreas is unremarkable. Hepatic steatosis without evidence of cirrhosis or intrahepatic biliary ductal dilation. No hepatic mass lesion. Common bile duct is normal, 6 mm. Mild bladder wall thickening, 4 mm. The gallbladder is distended. Sonographic Leary sign was not rep orted. Minimal cholelithiasis with gallbladder sludge. No pericholecystic fluid. Imaged right kidney is unremarkable. IMPRESSION: 1. Cholelithiasis with mild gallbladder distention and gallbladder wall thickening. No definite peric holecystic fluid identified. Findings are equivocal for acute cholecystitis. Correlate clinically and possibly with hepatobiliary scan. 2. No biliary ductal dilation. 3. Hepatic steatosis. The above report was generated using voice recognition software. It may contain grammatical, syntax o r spelling errors. Electronically signed by: Sujit Le M.D. 05/05/2019 6:25 PM
[2019-05-05] MEDS ORDERED: LIDOCAINE HCL 1% 20 ML VIAL ONE ×2 (19:10→19:11)
[2019-05-05 19:30] LABS: Hepatitis B Surface Antibody Immune
[2019-05-05] MEDS ORDERED: SODIUM CHLORIDE 0.9% 1000ML 1,000 ML IV PRN (19:36)
[2019-05-05 19:41] LABS: Hepatitis B Surface Antigen Neg (Neg)
--- NOTE | 2019-05-05 20:04 | XRay Report ---
XR chest 1V portable HISTORY: attempted line placement COMPARISON: Chest 05/05/2019. FINDINGS: There are low lung volumes. No pneumothorax. No pleural effusions. Elevation the right ishan diaphragm, unchanged. The heart remains mildly enlarged. No new focal lung consolidations to suggest pneumonia. Linear density right lung base persist and favor subsegmental atelectasis. No evidence for edema. Cervical spinal fusion hardware is noted. IMPRESSION: No significant change compared to the prior study. No acute process. No pneumothorax. Electronically signed by: David Camacho M.D. 05/05/2019 8:03 PM
[2019-05-05 20:09] LABS: Act87 Hepatitis C IgG Screen Neg (Neg)
[2019-05-05 20:10] LABS: Basophils # (auto) 0.02 K/uL (0-0.2); Basophils % (auto) 0.2 %; Eosinophils # (auto) 0.09 K/uL (0-0.5); Eosinophils % (auto) 0.9 %; Hematocrit (blood only) 31.4 % (42-52); Hemoglobin 11.1 g/dL (14.0-18.0); Immature Granulocytes # (auto) 0.03 K/uL (0.00-0.02); Immature Granulocytes % (auto) 0.3 %; Lymphocytes # (auto) 2.24 K/uL (1.2-3.4); Lymphocytes % (auto) 22.9 %; Mean Corpuscular Hgb Conc 35.4 g/dL (32-36); Mean Corpuscular Volume 91.5 fL (80-100); Mean Platelet Volume 8.6 fL (7.4-10.4); Monocytes # (auto) 0.65 K/uL (0.11-0.59); Monocytes % (auto) 6.6 %; Neutrophils # (auto) 6.75 K/uL (1.4-6.5); Neutrophils % (auto) 69.1 %; Platelet Count 115 K/uL (130-400); RDW Coefficient of Variation 14.6 % (11.5-14.5); RDW Standard Deviation 48.4 fL (36.4-46.3); Red Blood Count 3.43 M/uL (4.7-6.1); White Blood Count 9.78 K/uL (4.8-10.8)
--- NOTE | 2019-05-05 20:11 | Procedure Note ---
Procedure Note Date of Service May 05, 2019 At the request of Dr. Spencer we attempted to place a dialysis catheter using ultrasound via right IJ approach. The vein was easily cannulated with good blood flow and the guidewire was easily threaded. However on placing the dilator there was significant resistance resulting in some kinking of the guidewire and the procedure was aborted. Postprocedure chest x-ray shows no pneumothorax. Pressure was applied to the insertion site for 10 minutes and there appears to be no significant hematoma formation. Dressing was applied. Coding
[2019-05-05 20:41] LABS: Calcium 5.3 mg/dl (8.5-10.1); Creatinine Clr Calc Pharmacy 8.4 ml/min; Est GFR (Non-African American) 4.3; Potassium 5.7 mmol/L (3.5-5.1)
[2019-05-05 21:00] LABS: iSTAT Allen Test Pass; iSTAT Arterial Blood Gas HCO3 15 meg/L (19-24); iSTAT Arterial Blood Gas pCO2 35 mmHg (35-46); iSTAT Arterial Blood Gas pH 7.23 (7.35-7.45); iSTAT Carbon Dioxide 16 mEq/l (24-31); iSTAT FiO2 80 %; iSTAT Site R Radial
[2019-05-05] MEDS: PIPERACILLIN/TAZOBACTAM 3.375 GM in DEXTROSE 5% 100 ML IV SCH (22:07)
[2019-05-06] MEDS ORDERED: CHECK FENTANYL PATCH PLACEMENT SCH
[2019-05-06] MEDS: INSULIN ASPART 100 UNITS/ML 3 ML PEN SC SCH ×6 (00:49→23:49)
[2019-05-06] MEDS: SODIUM BICARBONATE 8.4% 150 MEQ in DEXTROSE 5% 1,000 ML IV SCH ×2 (00:50→05:54)
[2019-05-06 01:57] LABS: BUN Creatinine Ratio 11.3 (10-20); Calcium 5.5 mg/dl (8.5-10.1); Creatinine Clr Calc Pharmacy 11.4 ml/min; Est GFR (African American) 7.3; Est GFR (Non-African American) 6.3; Potassium 4.1 mmol/L (3.5-5.1)
[2019-05-06 04:50] LABS: Basophils # (auto) 0.01 K/uL (0-0.2); Basophils % (auto) 0.2 %; Eosinophils # (auto) 0.03 K/uL (0-0.5); Eosinophils % (auto) 0.5 %; Hematocrit (blood only) 32.7 % (42-52); Hemoglobin 11.6 g/dL (14.0-18.0); Immature Granulocytes # (auto) 0.01 K/uL (0.00-0.02); Immature Granulocytes % (auto) 0.2 %; Lymphocytes # (auto) 1.32 K/uL (1.2-3.4); Lymphocytes % (auto) 20.9 %; Mean Corpuscular Hgb Conc 35.5 g/dL (32-36); Mean Corpuscular Volume 90.6 fL (80-100); Mean Platelet Volume 8.9 fL (7.4-10.4); Monocytes # (auto) 0.64 K/uL (0.11-0.59); Monocytes % (auto) 10.1 %; Neutrophils # (auto) 4.31 K/uL (1.4-6.5); Neutrophils % (auto) 68.1 %; Platelet Count 104 K/uL (130-400); RDW Coefficient of Variation 14.2 % (11.5-14.5); RDW Standard Deviation 47.1 fL (36.4-46.3); Red Blood Count 3.61 M/uL (4.7-6.1); White Blood Count 6.32 K/uL (4.8-10.8)
[2019-05-06 04:53] LABS: Base Excess VBG -1.8 mEq/L; Oxygen Saturation VBG 88.3 %; pH VBG 7.39 (7.36-7.41)
[2019-05-06 06:04] LABS: Albumin Globulin Ratio 0.7 (0.9-2); Albumin Level 3.1 gm/dl (3.4-5.0); BUN Creatinine Ratio 13.3 (10-20); Bilirubin,Total 0.7 mg/dl (0.2-1); Calcium 5.6 mg/dl (8.5-10.1); Creatinine Clr Calc Pharmacy 14.7 ml/min; Est GFR (African American) 9.9; Est GFR (Non-African American) 8.5; Globulin 4.6 gm/dl (2.5-4.0); Magnesium 2.3 mg/dl (1.8-2.4); Total Protein 7.7 gm/dl (6.4-8.2)
[2019-05-06] MEDS ORDERED: CALCIUM GLUCONATE 10% 2,000 MG in SODIUM CHLORIDE 0.9% 50 ML IV STA ×2 (06:42→10:55)
[2019-05-06 07:15] LABS: Estimated Average Glucose 189 mg/dl; Hemoglobin A1C 8.2 % (4.5-5.6)
[2019-05-06] MEDS ORDERED: INSULIN GLARGINE SOLOSTAR 100 UNITS/ML 3 ML PEN SC SCH ×2 (08:00→18:00)
--- NOTE | 2019-05-06 08:52 | Nephrology Progress Note ---
Date of Service May 06, 2019 Assessment & Plan (1) Metabolic acidosis: resolved w/ aggressive medical and respiratory management. presented w/ severe anion gap metabolic acidosis more than likely from renal failure. tylenol, ASA, lactic acid levels wnl; EtOH not detectable; no ketonuria. pt also with respiratory acidosis based on Winter's formula; w/ metabolic alkalosis of ? etiology, possibly contraction alkalosis from decreased po. pt taking metformin but lactic acid is wnl, so not a likely cause here. -we had planned emergent dialysis but hyperkalemia, metabolic acidemia improved; MS improved today> gabapentin at elevated levels may contribute to his metabolic encephalopathy -also w/ severe hypocalcemia> gave additional 2 gm IV calcium this am -check phos daily (2) Acute kidney failure: on presentation w/ oliguric acute renal failure with baseline creatinine early february 0.9>>prerenal at least in part based on response to tx. presented w/ creatinine 13.4 on 05/05. improved to 6.7 by next am; not oliguric now. urine sediment contracted/traumatic; not c/w infection. not particularly consistent with vasculitis or glomerulonephritis. no ketonuria/ some glucosuria c/w DM medications. severe acidemia as above and potentially life threatening hyperkalemia, hypocalcemia on presentation. not overloaded on exam and if anything looks dehydrated; not severely anemic -change bicarb gtt to 1/2 NS w/ 75 mEq/L sodium bicarbonate at 150 mL hourly or as aggressively as tolerated -no indication currently for dialysis -bmp q 8-12 hrs (3) Non-traumatic rhabdomyolysis: CK 6880 on presentation >> slight down trend this am; elevated but not severely so. ? from sitting in same position per family report for 36 hours; ? from statin; from occult infection; -continue aggressive hydration as tolerated with D5W and 150 mEq/L sodium bicarbonate at 150 mL/hour or as respiratory status tolerates >> goal is at least 300-500 mL/hr UOP -strict I/O -hypocalcemia c/w rhabdo: ca replacement not routinely done w/ this condition > will give small amounts not to correct but to maintain -repeat CK this am trending down slightly -f/u pending blood cultures (4) Alcohol abuse: watch for alcohol withdrawal/ DT > defer to primary service on this Subjective seen on rounds this am 0900; K has normalized; pt more alert/interactive though still encephalopathic. 6+L UOP Review of Systems Review of Systems: Unobtainable due to cognitive status and Unobtainable due to reduced consciousness Constitutional: + increased appetite Respiratory: no dyspnea Gastrointestinal: + abdominal pain (w/ palpation) and + constipation Musculoskeletal: severe calf cramps Physical Exam Constitutional: well developed, well nourished, + obese and + altered mental status groans, alert, oriented to self and place Eyes: EOM intact bilaterally ENMT: Ears: no external ear abnormality Nose: no external nose abnormality Mouth: + dry oral mucous membranes Neck: + thick neck; no nuchal rigidity Respiratory: + labored breathing, + tachypneic and + prolonged expiratory phase; does not use accessory muscles Auscultation: + diminished lung sounds, + rhonchi and + wheezes Cardiovascular: Rate/Rhythm: regular rhythm and + tachycardic Heart Sounds: normal S1, normal S2 and + murmur Extremities: no edema Gastrointestinal (Abdomen): Inspection/Auscultation: + abdomen distended and normal bowel sounds Percussion/Palpation: + abdomen tender (focal tenderness to moderate palpation RUQ but less than yesterday) and abdomen soft; no ascites Skin: no rashes, warm and dry no jaundice Neurologic: sabillon, limited speech Psychiatric: Orientation: alert, oriented to person, oriented to place and cooperative Eye Contact: + fair eye contact speech limited Genitourinary: valdez w/ ample yellow urine Results & Data Vital Signs (Past 12 Hours) Vital Signs Temp Pulse Resp BP Pulse Ox 05/06/19 06:01 94 H 129/68 95 05/06/19 06:00 94 H 95 05/06/19 05:31 96 H 122/62 95 05/06/19 05:01 96 H 115/60 94 05/06/19 05:00 95 H 94 05/06/19 04:32 92 H 94 05/06/19 04:31 91 H 106/57 L 94 05/06/19 04:30 93 H 94 05/06/19 04:01 94 H 88/55 L 94 05/06/19 04:00 94 H 94 05/06/19 03:31 37.3 C 100 H 111/67 95 05/06/19 03:30 100 H 95 05/06/19 03:15 91 H 96 05/06/19 03:01 37.2 C 93 H 114/62 95 05/06/19 02:31 93 H 87/62 L 95 05/06/19 02:01 93 H 126/61 95 05/06/19 01:31 91 H 116/59 L 95 05/06/19 01:01 88 100/52 L 95 05/06/19 00:31 110/69 96 05/06/19 00:04 95 H 26 H 96 05/06/19 00:01 95 H 151/78 H 94 05/06/19 00:00 37.5 C 94 H 93 05/05/19 23:55 96 H 05/05/19 23:32 94 H 95 05/05/19 23:31 94 H 134/72 95 05/05/19 23:30 95 H 95 05/05/19 23:01 37.5 C 96 H 144/79 H 94 05/05/19 23:00 96 H 94 05/05/19 22:32 96 H 93 05/05/19 22:31 96 H 18 136/71 93 05/05/19 22:30 98 H 93 05/05/19 22:01 97 H 156/73 H 93 05/05/19 22:00 97 H 93 05/05/19 21:32 97 H 20 93 05/05/19 21:31 97 H 144/85 H 94 05/05/19 21:30 96 H 94 05/05/19 21:16 97 H 141/78 H 93 05/05/19 21:01 97 H 162/76 H 93 05/05/19 21:00 97 H 93 Laboratory Results Abnormal lab results 05/05/19 05/05/19 05/05/19 Range/Units 12:21 12:48 12:48 WBC 11.72 H (4.8-10.8) K/uL RBC 3.72 L (4.7-6.1) M/uL Hgb 12.0 L (14.0-18.0) g/dL Hct 34.3 L (42-52) % RDW Std Deviation 49.9 H (36.4-46.3) fL RDW Coeff of Katherine 14.7 H (11.5-14.5) % Plt Count (130-400) K/uL Immature Gran # (Auto) 0.06 H (0.00-0.02) K/uL Neut # (Auto) 8.03 H (1.4-6.5) K/uL Beaver # (Auto) 1.01 H (0.11-0.59) K/uL ESR (0-14) mm/hr APTT (21.0-31.0) Seconds POC pH (7.35-7.45) POC pCO2 (35-46) mmHg POC pO2 (80-95) mmHg POC HCO3 (19-24) susanna/L POC Total CO2 (24-31) mEq/l POC Base Excess (-9-1.8) susanna/L POC ABG O2 Sat (90-95) % VBG pH (7.36-7.41) VBG pCO2 (38-50) mmHg Sodium (136-145) mmol/L Potassium (3.5-5.1) mmol/L Chloride (98-107) mmol/L Carbon Dioxide (21-32) mmol/L Anion Gap (3-11) BUN (7-18) mg/dl Creatinine (0.6-1.4) mg/dl BUN/Creatinine Ratio (10-20) Glucose (70-99) mg/dl POC Glucose 160 H (70-99) Hemoglobin A1c (4.5-5.6) % Osmolality (280-300) mOsm/kg Calcium (8.5-10.1) mg/dl Ionized Calcium (1.12-1.32) mmol/L Phosphorus (2.5-4.9) mg/dl Magnesium (1.8-2.4) mg/dl AST (15-37) U/L ALT (12-78) U/L Total Creatine Kinase (39-308) U/L CK-MB (CK-2) (0.5-3.6) ng/ml C-Reactive Protein (0-0.29) mg/dl Total Protein (6.4-8.2) gm/dl Albumin (3.4-5.0) gm/dl Globulin (2.5-4.0) gm/dl Albumin/Globulin Ratio (0.9-2) Procalcitonin 7.02 H (0-0.5) ng/ml Urine Appearance (Clear) Urine Protein (Negative) Urine Glucose (UA) (Negative) Urine Blood (Negative) Ur Leukocyte Esterase (Negative) Urine RBC (Auto) (0-4) /hpf U Epithel Cells (Auto) (0-5) /lpf Calcium Oxalate Crystal (None Prsent) Amorphous Sediment (None Prsent) Salicylates (2.8-20) mg/dl Urine Opiates Screen (Neg) Acetaminophen (10-30) ug/ml 05/05/19 05/05/19 05/05/19 Range/Units 12:48 12:48 12:48 WBC (4.8-10.8) K/uL RBC (4.7-6.1) M/uL Hgb (14.0-18.0) g/dL Hct (42-52) % RDW Std Deviation (36.4-46.3) fL RDW Coeff of Katherine (11.5-14.5) % Plt Count (130-400) K/uL Immature Gran # (Auto) (0.00-0.02) K/uL Neut # (Auto) (1.4-6.5) K/uL Beaver # (Auto) (0.11-0.59) K/uL ESR 83 H (0-14) mm/hr APTT 34.5 H (21.0-31.0) Seconds POC pH (7.35-7.45) POC pCO2 (35-46) mmHg POC pO2 (80-95) mmHg POC HCO3 (19-24) susanna/L POC Total CO2 (24-31) mEq/l POC Base Excess (-9-1.8) susanna/L POC ABG O2 Sat (90-95) % VBG pH (7.36-7.41) VBG pCO2 (38-50) mmHg Sodium 126 L (136-145) mmol/L Potassium 6.5 H* (3.5-5.1) mmol/L Chloride 90 L (98-107) mmol/L Carbon Dioxide 11 L (21-32) mmol/L Anion Gap 26.0 H (3-11) BUN 105 H (7-18) mg/dl Creatinine 13.40 H* (0.6-1.4) mg/dl BUN/Creatinine Ratio 7.8 L (10-20) Glucose 152 H (70-99) mg/dl POC Glucose (70-99) Hemoglobin A1c (4.5-5.6) % Osmolality (280-300) mOsm/kg Calcium 5.4 L* (8.5-10.1) mg/dl Ionized Calcium (1.12-1.32) mmol/L Phosphorus (2.5-4.9) mg/dl Magnesium 3.0 H (1.8-2.4) mg/dl AST 262 H (15-37) U/L ALT 118 H (12-78) U/L Total Creatine Kinase (39-308) U/L CK-MB (CK-2) 91.1 H (0.5-3.6) ng/ml C-Reactive Protein 9.37 H (0-0.29) mg/dl Total Protein 8.7 H (6.4-8.2) gm/dl Albumin (3.4-5.0) gm/dl Globulin 5.1 H (2.5-4.0) gm/dl Albumin/Globulin Ratio 0.7 L (0.9-2) Procalcitonin (0-0.5) ng/ml Urine Appearance (Clear) Urine Protein (Negative) Urine Glucose (UA) (Negative) Urine Blood (Negative) Ur Leukocyte Esterase (Negative) Urine RBC (Auto) (0-4) /hpf U Epithel Cells (Auto) (0-5) /lpf Calcium Oxalate Crystal (None Prsent) Amorphous Sediment (None Prsent) Salicylates (2.8-20) mg/dl Urine Opiates Screen (Neg) Acetaminophen (10-30) ug/ml 05/05/19 05/05/19 05/05/19 Range/Units 12:48 12:48 13:54 WBC (4.8-10.8) K/uL RBC (4.7-6.1) M/uL Hgb (14.0-18.0) g/dL Hct (42-52) % RDW Std Deviation (36.4-46.3) fL RDW Coeff of Katherine (11.5-14.5) % Plt Count (130-400) K/uL Immature Gran # (Auto) (0.00-0.02) K/uL Neut # (Auto) (1.4-6.5) K/uL Beaver # (Auto) (0.11-0.59) K/uL ESR (0-14) mm/hr APTT (21.0-31.0) Seconds POC pH (7.35-7.45) POC pCO2 (35-46) mmHg POC pO2 (80-95) mmHg POC HCO3 (19-24) susanna/L POC Total CO2 (24-31) mEq/l POC Base Excess (-9-1.8) susanna/L POC ABG O2 Sat (90-95) % VBG pH 7.17 L (7.36-7.41) VBG pCO2 28 L (38-50) mmHg Sodium (136-145) mmol/L Potassium (3.5-5.1) mmol/L Chloride (98-107) mmol/L Carbon Dioxide (21-32) mmol/L Anion Gap (3-11) BUN (7-18) mg/dl Creatinine (0.6-1.4) mg/dl BUN/Creatinine Ratio (10-20) Glucose (70-99) mg/dl POC Glucose (70-99) Hemoglobin A1c (4.5-5.6) % Osmolality (280-300) mOsm/kg Calcium (8.5-10.1) mg/dl Ionized Calcium (1.12-1.32) mmol/L Phosphorus (2.5-4.9) mg/dl Magnesium (1.8-2.4) mg/dl AST (15-37) U/L ALT (12-78) U/L Total Creatine Kinase 6880 H (39-308) U/L CK-MB (CK-2) (0.5-3.6) ng/ml C-Reactive Protein (0-0.29) mg/dl Total Protein (6.4-8.2) gm/dl Albumin (3.4-5.0) gm/dl Globulin (2.5-4.0) gm/dl Albumin/Globulin Ratio (0.9-2) Procalcitonin (0-0.5) ng/ml Urine Appearance (Clear) Urine Protein (Negative) Urine Glucose (UA) (Negative) Urine Blood (Negative) Ur Leukocyte Esterase (Negative) Urine RBC (Auto) (0-4) /hpf U Epithel Cells (Auto) (0-5) /lpf Calcium Oxalate Crystal (None Prsent) Amorphous Sediment (None Prsent) Salicylates 2.7 L (2.8-20) mg/dl Urine Opiates Screen (Neg) Acetaminophen < 2 L (10-30) ug/ml 05/05/19 05/05/19 05/05/19 Range/Units 14:04 14:04 14:17 WBC (4.8-10.8) K/uL RBC (4.7-6.1) M/uL Hgb (14.0-18.0) g/dL Hct (42-52) % RDW Std Deviation (36.4-46.3) fL RDW Coeff of Katherine (11.5-14.5) % Plt Count (130-400) K/uL Immature Gran # (Auto) (0.00-0.02) K/uL Neut # (Auto) (1.4-6.5) K/uL Beaver # (Auto) (0.11-0.59) K/uL ESR (0-14) mm/hr APTT (21.0-31.0) Seconds POC pH (7.35-7.45) POC pCO2 (35-46) mmHg POC pO2 (80-95) mmHg POC HCO3 (19-24) susanna/L POC Total CO2 (24-31) mEq/l POC Base Excess (-9-1.8) susanan/L POC ABG O2 Sat (90-95) % VBG pH (7.36-7.41) VBG pCO2 (38-50) mmHg Sodium (136-145) mmol/L Potassium (3.5-5.1) mmol/L Chloride (98-107) mmol/L Carbon Dioxide (21-32) mmol/L Anion Gap (3-11) BUN (7-18) mg/dl Creatinine (0.6-1.4) mg/dl BUN/Creatinine Ratio (10-20) Glucose (70-99) mg/dl POC Glucose (70-99) Hemoglobin A1c (4.5-5.6) % Osmolality (280-300) mOsm/kg Calcium (8.5-10.1) mg/dl Ionized Calcium 0.57 L* (1.12-1.32) mmol/L Phosphorus (2.5-4.9) mg/dl Magnesium (1.8-2.4) mg/dl AST (15-37) U/L ALT (12-78) U/L Total Creatine Kinase (39-308) U/L CK-MB (CK-2) (0.5-3.6) ng/ml C-Reactive Protein (0-0.29) mg/dl Total Protein (6.4-8.2) gm/dl Albumin (3.4-5.0) gm/dl Globulin (2.5-4.0) gm/dl Albumin/Globulin Ratio (0.9-2) Procalcitonin (0-0.5) ng/ml Urine Appearance Cloudy A (Clear) Urine Protein Trace H (Negative) Urine Glucose (UA) 1+ H (Negative) Urine Blood 1+ H (Negative) Ur Leukocyte Esterase 1+ H (Negative) Urine RBC (Auto) 10-30 H (0-4) /hpf U Epithel Cells (Auto) 20-30 H (0-5) /lpf Calcium Oxalate Crystal Present A (None Prsent) Amorphous Sediment Present A (None Prsent) Salicylates (2.8-20) mg/dl Urine Opiates Screen Pos H (Neg) Acetaminophen (10-30) ug/ml 05/05/19 05/05/19 05/05/19 Range/Units 16:42 16:42 17:09 WBC (4.8-10.8) K/uL RBC (4.7-6.1) M/uL Hgb (14.0-18.0) g/dL Hct (42-52) % RDW Std Deviation (36.4-46.3) fL RDW Coeff of Katherine (11.5-14.5) % Plt Count (130-400) K/uL Immature Gran # (Auto) (0.00-0.02) K/uL Neut # (Auto) (1.4-6.5) K/uL Beaver # (Auto) (0.11-0.59) K/uL ESR (0-14) mm/hr APTT (21.0-31.0) Seconds POC pH 7.13 L* (7.35-7.45) POC pCO2 32 L (35-46) mmHg POC pO2 (80-95) mmHg POC HCO3 11 L (19-24) susanna/L POC Total CO2 12 L (24-31) mEq/l POC Base Excess -18.0 L (-9-1.8) susanna/L POC ABG O2 Sat (90-95) % VBG pH (7.36-7.41) VBG pCO2 (38-50) mmHg Sodium 130 L (136-145) mmol/L Potassium 6.7 H* (3.5-5.1) mmol/L Chloride 96 L (98-107) mmol/L Carbon Dioxide 12 L (21-32) mmol/L Anion Gap 22.0 H (3-11) BUN 107 H (7-18) mg/dl Creatinine 12.80 H* D (0.6-1.4) mg/dl BUN/Creatinine Ratio 8.4 L (10-20) Glucose 125 H (70-99) mg/dl POC Glucose (70-99) Hemoglobin A1c (4.5-5.6) % Osmolality (280-300) mOsm/kg Calcium 5.0 L* (8.5-10.1) mg/dl Ionized Calcium 0.56 L* (1.12-1.32) mmol/L Phosphorus (2.5-4.9) mg/dl Magnesium (1.8-2.4) mg/dl AST (15-37) U/L ALT (12-78) U/L Total Creatine Kinase (39-308) U/L CK-MB (CK-2) (0.5-3.6) ng/ml C-Reactive Protein (0-0.29) mg/dl Total Protein (6.4-8.2) gm/dl Albumin (3.4-5.0) gm/dl Globulin (2.5-4.0) gm/dl Albumin/Globulin Ratio (0.9-2) Procalcitonin (0-0.5) ng/ml Urine Appearance (Clear) Urine Protein (Negative) Urine Glucose (UA) (Negative) Urine Blood (Negative) Ur Leukocyte Esterase (Negative) Urine RBC (Auto) (0-4) /hpf U Epithel Cells (Auto) (0-5) /lpf Calcium Oxalate Crystal (None Prsent) Amorphous Sediment (None Prsent) Salicylates (2.8-20) mg/dl Urine Opiates Screen (Neg) Acetaminophen (10-30) ug/ml 05/05/19 05/05/19 05/05/19 Range/Units 19:55 20:01 20:01 WBC (4.8-10.8) K/uL RBC 3.43 L (4.7-6.1) M/uL Hgb 11.1 L (14.0-18.0) g/dL Hct 31.4 L (42-52) % RDW Std Deviation 48.4 H (36.4-46.3) fL RDW Coeff of Katherine 14.6 H (11.5-14.5) % Plt Count 115 L (130-400) K/uL Immature Gran # (Auto) 0.03 H (0.00-0.02) K/uL Neut # (Auto) 6.75 H (1.4-6.5) K/uL Beaver # (Auto) 0.65 H (0.11-0.59) K/uL ESR (0-14) mm/hr APTT (21.0-31.0) Seconds POC pH (7.35-7.45) POC pCO2 (35-46) mmHg POC pO2 (80-95) mmHg POC HCO3 (19-24) susanna/L POC Total CO2 (24-31) mEq/l POC Base Excess (-9-1.8) susanna/L POC ABG O2 Sat (90-95) % VBG pH (7.36-7.41) VBG pCO2 (38-50) mmHg Sodium 127 L (136-145) mmol/L Potassium 5.7 H (3.5-5.1) mmol/L Chloride 95 L (98-107) mmol/L Carbon Dioxide 15 L (21-32) mmol/L Anion Gap 17.0 H (3-11) BUN 106 H (7-18) mg/dl Creatinine 11.80 H* D (0.6-1.4) mg/dl BUN/Creatinine Ratio 9.0 L (10-20) Glucose 183 H (70-99) mg/dl POC Glucose (70-99) Hemoglobin A1c (4.5-5.6) % Osmolality 312 H (280-300) mOsm/kg Calcium 5.3 L* (8.5-10.1) mg/dl Ionized Calcium (1.12-1.32) mmol/L Phosphorus 10.0 H (2.5-4.9) mg/dl Magnesium (1.8-2.4) mg/dl AST (15-37) U/L ALT (12-78) U/L Total Creatine Kinase (39-308) U/L CK-MB (CK-2) (0.5-3.6) ng/ml C-Reactive Protein (0-0.29) mg/dl Total Protein (6.4-8.2) gm/dl Albumin (3.4-5.0) gm/dl Globulin (2.5-4.0) gm/dl Albumin/Globulin Ratio (0.9-2) Procalcitonin (0-0.5) ng/ml Urine Appearance (Clear) Urine Protein (Negative) Urine Glucose (UA) (Negative) Urine Blood (Negative) Ur Leukocyte Esterase (Negative) Urine RBC (Auto) (0-4) /hpf U Epithel Cells (Auto) (0-5) /lpf Calcium Oxalate Crystal (None Prsent) Amorphous Sediment (None Prsent) Salicylates (2.8-20) mg/dl Urine Opiates Screen (Neg) Acetaminophen (10-30) ug/ml 05/05/19 05/05/19 05/05/19 Range/Units 20:01 20:01 20:46 WBC (4.8-10.8) K/uL RBC (4.7-6.1) M/uL Hgb (14.0-18.0) g/dL Hct (42-52) % RDW Std Deviation (36.4-46.3) fL RDW Coeff of Katherine (11.5-14.5) % Plt Count (130-400) K/uL Immature Gran # (Auto) (0.00-0.02) K/uL Neut # (Auto) (1.4-6.5) K/uL Beaver # (Auto) (0.11-0.59) K/uL ESR (0-14) mm/hr APTT (21.0-31.0) Seconds POC pH 7.23 L (7.35-7.45) POC pCO2 (35-46) mmHg POC pO2 146 H (80-95) mmHg POC HCO3 15 L (19-24) susanna/L POC Total CO2 16 L (24-31) mEq/l POC Base Excess -13.0 L (-9-1.8) susanna/L POC ABG O2 Sat 99.0 H (90-95) % VBG pH 7.20 L (7.36-7.41) VBG pCO2 (38-50) mmHg Sodium (136-145) mmol/L Potassium (3.5-5.1) mmol/L Chloride (98-107) mmol/L Carbon Dioxide (21-32) mmol/L Anion Gap (3-11) BUN (7-18) mg/dl Creatinine (0.6-1.4) mg/dl BUN/Creatinine Ratio (10-20) Glucose (70-99) mg/dl POC Glucose (70-99) Hemoglobin A1c (4.5-5.6) % Osmolality (280-300) mOsm/kg Calcium (8.5-10.1) mg/dl Ionized Calcium 0.59 L* (1.12-1.32) mmol/L Phosphorus (2.5-4.9) mg/dl Magnesium (1.8-2.4) mg/dl AST (15-37) U/L ALT (12-78) U/L Total Creatine Kinase (39-308) U/L CK-MB (CK-2) (0.5-3.6) ng/ml C-Reactive Protein (0-0.29) mg/dl Total Protein (6.4-8.2) gm/dl Albumin (3.4-5.0) gm/dl Globulin (2.5-4.0) gm/dl Albumin/Globulin Ratio (0.9-2) Procalcitonin (0-0.5) ng/ml Urine Appearance (Clear) Urine Protein (Negative) Urine Glucose (UA) (Negative) Urine Blood (Negative) Ur Leukocyte Esterase (Negative) Urine RBC (Auto) (0-4) /hpf U Epithel Cells (Auto) (0-5) /lpf Calcium Oxalate Crystal (None Prsent) Amorphous Sediment (None Prsent) Salicylates (2.8-20) mg/dl Urine Opiates Screen (Neg) Acetaminophen (10-30) ug/ml 05/06/19 05/06/19 05/06/19 Range/Units 00:22 01:06 01:06 WBC (4.8-10.8) K/uL RBC (4.7-6.1) M/uL Hgb (14.0-18.0) g/dL Hct (42-52) % RDW Std Deviation (36.4-46.3) fL RDW Coeff of Katherine (11.5-14.5) % Plt Count (130-400) K/uL Immature Gran # (Auto) (0.00-0.02) K/uL Neut # (Auto) (1.4-6.5) K/uL Beaver # (Auto) (0.11-0.59) K/uL ESR (0-14) mm/hr APTT (21.0-31.0) Seconds POC pH (7.35-7.45) POC pCO2 (35-46) mmHg POC pO2 (80-95) mmHg POC HCO3 (19-24) susanna/L POC Total CO2 (24-31) mEq/l POC Base Excess (-9-1.8) susanna/L POC ABG O2 Sat (90-95) % VBG pH (7.36-7.41) VBG pCO2 (38-50) mmHg Sodium 132 L (136-145) mmol/L Potassium (3.5-5.1) mmol/L Chloride 96 L (98-107) mmol/L Carbon Dioxide (21-32) mmol/L Anion Gap 14.0 H (3-11) BUN 98 H (7-18) mg/dl Creatinine 8.64 H* D (0.6-1.4) mg/dl BUN/Creatinine Ratio (10-20) Glucose 201 H (70-99) mg/dl POC Glucose 186 H (70-99) Hemoglobin A1c (4.5-5.6) % Osmolality (280-300) mOsm/kg Calcium 5.5 L* (8.5-10.1) mg/dl Ionized Calcium 0.63 L* (1.12-1.32) mmol/L Phosphorus (2.5-4.9) mg/dl Magnesium (1.8-2.4) mg/dl AST (15-37) U/L ALT (12-78) U/L Total Creatine Kinase (39-308) U/L CK-MB (CK-2) (0.5-3.6) ng/ml C-Reactive Protein (0-0.29) mg/dl Total Protein (6.4-8.2) gm/dl Albumin (3.4-5.0) gm/dl Globulin (2.5-4.0) gm/dl Albumin/Globulin Ratio (0.9-2) Procalcitonin (0-0.5) ng/ml Urine Appearance (Clear) Urine Protein (Negative) Urine Glucose (UA) (Negative) Urine Blood (Negative) Ur Leukocyte Esterase (Negative) Urine RBC (Auto) (0-4) /hpf U Epithel Cells (Auto) (0-5) /lpf Calcium Oxalate Crystal (None Prsent) Amorphous Sediment (None Prsent) Salicylates (2.8-20) mg/dl Urine Opiates Screen (Neg) Acetaminophen (10-30) ug/ml 05/06/19 05/06/19 05/06/19 Range/Units 01:09 04:42 04:42 WBC (4.8-10.8) K/uL RBC 3.61 L (4.7-6.1) M/uL Hgb 11.6 L (14.0-18.0) g/dL Hct 32.7 L (42-52) % RDW Std Deviation 47.1 H (36.4-46.3) fL RDW Coeff of Katherine (11.5-14.5) % Plt Count 104 L (130-400) K/uL Immature Gran # (Auto) (0.00-0.02) K/uL Neut # (Auto) (1.4-6.5) K/uL Beaver # (Auto) 0.64 H (0.11-0.59) K/uL ESR (0-14) mm/hr APTT (21.0-31.0) Seconds POC pH (7.35-7.45) POC pCO2 (35-46) mmHg POC pO2 (80-95) mmHg POC HCO3 (19-24) susanna/L POC Total CO2 (24-31) mEq/l POC Base Excess (-9-1.8) susanna/L POC ABG O2 Sat (90-95) % VBG pH 7.33 L (7.36-7.41) VBG pCO2 (38-50) mmHg Sodium (136-145) mmol/L Potassium (3.5-5.1) mmol/L Chloride (98-107) mmol/L Carbon Dioxide (21-32) mmol/L Anion Gap (3-11) BUN (7-18) mg/dl Creatinine (0.6-1.4) mg/dl BUN/Creatinine Ratio (10-20) Glucose (70-99) mg/dl POC Glucose (70-99) Hemoglobin A1c 8.2 H (4.5-5.6) % Osmolality (280-300) mOsm/kg Calcium (8.5-10.1) mg/dl Ionized Calcium (1.12-1.32) mmol/L Phosphorus (2.5-4.9) mg/dl Magnesium (1.8-2.4) mg/dl AST (15-37) U/L ALT (12-78) U/L Total Creatine Kinase (39-308) U/L CK-MB (CK-2) (0.5-3.6) ng/ml C-Reactive Protein (0-0.29) mg/dl Total Protein (6.4-8.2) gm/dl Albumin (3.4-5.0) gm/dl Globulin (2.5-4.0) gm/dl Albumin/Globulin Ratio (0.9-2) Procalcitonin (0-0.5) ng/ml Urine Appearance (Clear) Urine Protein (Negative) Urine Glucose (UA) (Negative) Urine Blood (Negative) Ur Leukocyte Esterase (Negative) Urine RBC (Auto) (0-4) /hpf U Epithel Cells (Auto) (0-5) /lpf Calcium Oxalate Crystal (None Prsent) Amorphous Sediment (None Prsent) Salicylates (2.8-20) mg/dl Urine Opiates Screen (Neg) Acetaminophen (10-30) ug/ml 05/06/19 05/06/19 05/06/19 Range/Units 04:42 04:42 05:59 WBC (4.8-10.8) K/uL RBC (4.7-6.1) M/uL Hgb (14.0-18.0) g/dL Hct (42-52) % RDW Std Deviation (36.4-46.3) fL RDW Coeff of Katherine (11.5-14.5) % Plt Count (130-400) K/uL Immature Gran # (Auto) (0.00-0.02) K/uL Neut # (Auto) (1.4-6.5) K/uL Beaver # (Auto) (0.11-0.59) K/uL ESR (0-14) mm/hr APTT (21.0-31.0) Seconds POC pH (7.35-7.45) POC pCO2 (35-46) mmHg POC pO2 (80-95) mmHg POC HCO3 (19-24) susanna/L POC Total CO2 (24-31) mEq/l POC Base Excess (-9-1.8) susanna/L POC ABG O2 Sat (90-95) % VBG pH (7.36-7.41) VBG pCO2 (38-50) mmHg Sodium 134 L (136-145) mmol/L Potassium (3.5-5.1) mmol/L Chloride (98-107) mmol/L Carbon Dioxide (21-32) mmol/L Anion Gap 12.0 H (3-11) BUN 89 H (7-18) mg/dl Creatinine 6.71 H* D (0.6-1.4) mg/dl BUN/Creatinine Ratio (10-20) Glucose 198 H (70-99) mg/dl POC Glucose 203 H (70-99) Hemoglobin A1c (4.5-5.6) % Osmolality (280-300) mOsm/kg Calcium 5.6 L* (8.5-10.1) mg/dl Ionized Calcium 0.63 L* (1.12-1.32) mmol/L Phosphorus (2.5-4.9) mg/dl Magnesium (1.8-2.4) mg/dl AST 163 H (15-37) U/L ALT 90 H (12-78) U/L Total Creatine Kinase 5350 H (39-308) U/L CK-MB (CK-2) (0.5-3.6) ng/ml C-Reactive Protein (0-0.29) mg/dl Total Protein (6.4-8.2) gm/dl Albumin 3.1 L (3.4-5.0) gm/dl Globulin 4.6 H (2.5-4.0) gm/dl Albumin/Globulin Ratio 0.7 L (0.9-2) Procalcitonin (0-0.5) ng/ml Urine Appearance (Clear) Urine Protein (Negative) Urine Glucose (UA) (Negative) Urine Blood (Negative) Ur Leukocyte Esterase (Negative) Urine RBC (Auto) (0-4) /hpf U Epithel Cells (Auto) (0-5) /lpf Calcium Oxalate Crystal (None Prsent) Amorphous Sediment (None Prsent) Salicylates (2.8-20) mg/dl Urine Opiates Screen (Neg) Acetaminophen (10-30) ug/ml (1) Acute kidney failure Acute renal failure type: unspecified Qualified Code(s): N17.9 - Acute kidney failure, unspecified
[2019-05-06] MEDS ORDERED: fentaNYL 25 MCG/HR TDSY TD SCH (09:00)
--- NOTE | 2019-05-06 09:02 | Hospitalist Progress Note ---
Date of Service May 06, 2019 Assessment & Plan (1) Metabolic acidosis: (2) Acute kidney failure: (3) Rhabdomyolysis: (4) Acute respiratory failure: (5) Electrolyte abnormality: This is a 54-year-old male who has a significant PMH of HTN, HLD, T2DM, COPD, chronic pain syndrome on chronic opioid, OLEKSANDR, abnormal LFT, tobacco and alcohol abuser presents to [facility] secondary to altered mental status and lethargy x1 day. Acute renal failure etiology possibly from rhabdomyolysis, dehydration Patient placed on bicarb drip Also attempted to place dialysis catheter but was not successful overnight Today creatinine is improved to 6, urine output around 6 L Patient is more awake but still somewhat confused Discussed case with Dr. Spencer, nephrology, appreciate the recommendations (6) Cholecystitis, chronic: CT Scan: The gallbladder is distended and there are calcified gallstones. Gallbladder wall thickening is nonspecific and may be related to chronic liver disease. Correlate with clinical findings and liver function studies for evidence of acute cholecystitis. Ultrasound should be considered for further assessment if clinically warranted. Liver ultrasound: IMPRESSION: 1. Cholelithiasis with mild gallbladder distention and gallbladder wall thickening. No definite pericholecystic fluid identified. Findings are equivocal for acute cholecystitis. Correlate clinically and possibly with hepatobiliary scan. 2. No biliary ductal dilation. 3. Hepatic steatosis. Bilirubin levels normal AST/ALT improving General surgery consulted: Not recommending surgical intervention at this point Continue Zosyn day #2 (7) Prolonged QT interval: QTC 512ms 05/06: QT corrected 528 Continue to monitor avoid qt prolonging agents (8) HTN (hypertension): Blood pressure has been on low side, likely in setting of LUISITO hold amlodipine and lisinopril for now (9) HLD (hyperlipidemia): Hold statin in setting of rhabdo, LUISITO, elevated LFTS (10) T2DM (type 2 diabetes mellitus): Per admitting service notes Last A1c 03/04 9.9 On JanNataliia medina as outpatient Hold all oral hypoglycemics Consult pharmacy for glycemic management given NPO/Critically ill status Jardiance initiated approx 3 weeks ago - given this would discontinue and avoid SLGT2 drug class (11) Chronic pain syndrome: Continue fentanyl patch, last placed 05/03 hold percocet for now (12) Alcohol abuse: per admitting service notes: AWSS protocol ativan prn last drink wednesday 05/02 monitor for s/sx of DT Thiamine and folic acid daily (currently ordered IV given npo status) (13) DVT prophylaxis: SCDS for now, patient may need emergent HD and catheter placement, therefore will hold off on chemical prophylaxis at this time Disposition: to be determined Follow up: PCP Dr. Zelaya upon discharge FULL CODE STATUS discussed with patient's , she is understanding, agreeable and comfortable with the plan of care Subjective Seen with his at the bedside Events overnight noted Patient taken off BiPAP this morning, on oxygen mask Patient is starting to wake up, drowsy but able to recognize his Does not remember events leading up to hospitalization yet No shortness of breath, chest pain, abdominal pain Does report discomfort in his feet No other symptoms per patient's Patient appears to have improved overnight He is currently much more awake and responsive and appropriate Review of Systems Review of Systems: All systems reviewed & are unremarkable except as noted in HPI & below Physical Exam Physical Exam: General- oriented x 2, not in distress, speaks in sentences with no effort or accessory muscle use Eyes- anicteric Neck- no JVD Lungs- clear breath sounds bilaterally, no crackles or wheezing Heart- normal rate, regular rhythm; no murmurs Abdomen- normal bowel sounds, nondistended, soft, nontender Extremities- no pretibial edema, no calf tenderness Neuro-drowsy, oriented to person; full neurologic exam difficult to perform due to cognitive status, but no gross focal neurologic deficits noted Skin- warm & dry Results & Data Vital Signs (Past 12 Hours) Vital Signs Temp Pulse Resp BP Pulse Ox 05/06/19 06:01 94 H 129/68 95 05/06/19 06:00 94 H 95 05/06/19 05:31 96 H 122/62 95 05/06/19 05:01 96 H 115/60 94 05/06/19 05:00 95 H 94 05/06/19 04:32 92 H 94 05/06/19 04:31 91 H 106/57 L 94 05/06/19 04:30 93 H 94 05/06/19 04:01 94 H 88/55 L 94 05/06/19 04:00 94 H 94 05/06/19 03:31 37.3 C 100 H 111/67 95 05/06/19 03:30 100 H 95 05/06/19 03:15 91 H 96 05/06/19 03:01 37.2 C 93 H 114/62 95 05/06/19 02:31 93 H 87/62 L 95 05/06/19 02:01 93 H 126/61 95 05/06/19 01:31 91 H 116/59 L 95 05/06/19 01:01 88 100/52 L 95 05/06/19 00:31 110/69 96 05/06/19 00:04 95 H 26 H 96 05/06/19 00:01 95 H 151/78 H 94 05/06/19 00:00 37.5 C 94 H 93 05/05/19 23:55 96 H 05/05/19 23:32 94 H 95 05/05/19 23:31 94 H 134/72 95 05/05/19 23:30 95 H 95 05/05/19 23:01 37.5 C 96 H 144/79 H 94 05/05/19 23:00 96 H 94 05/05/19 22:32 96 H 93 05/05/19 22:31 96 H 18 136/71 93 05/05/19 22:30 98 H 93 05/05/19 22:01 97 H 156/73 H 93 05/05/19 22:00 97 H 93 05/05/19 21:32 97 H 20 93 05/05/19 21:31 97 H 144/85 H 94 05/05/19 21:30 96 H 94 05/05/19 21:16 97 H 141/78 H 93 Laboratory Results Laboratory Results - last 24 hr 05/05/19 05/05/19 05/05/19 12:48 13:54 13:54 WBC RBC Hgb Hct MCV MCH MCHC RDW Std Deviation RDW Coeff of Katherine Plt Count MPV Immature Gran % (Auto) Neut % (Auto) Lymph % (Auto) [place] % (Auto) Eos % (Auto) Baso % (Auto) Immature Gran # (Auto) Neut # (Auto) Lymph # (Auto) [place] # (Auto) Eos # (Auto) Baso # (Auto) Sample Site POC pH POC pCO2 POC pO2 POC HCO3 POC Total CO2 POC Base Excess POC ABG O2 Sat Kunal Test VBG pH VBG pCO2 VBG pO2 VBG HCO3 VBG O2 Saturation VBG Base Excess Barometric Pressure O2 Delivery Device POC O2 Rate POC FiO2 IPAP Sodium Potassium Chloride Carbon Dioxide Anion Gap BUN Creatinine Est Cr Clr Drug Dosing Est GFR ( Amer) Est GFR (Non-Af Amer) BUN/Creatinine Ratio Glucose POC Glucose Estimat Average Glucose Hemoglobin A1c Osmolality Calcium Ionized Calcium Cancelled Phosphorus Magnesium Total Bilirubin AST ALT Alkaline Phosphatase Total Creatine Kinase 6880 H Total Protein Albumin Globulin Albumin/Globulin Ratio Procalcitonin 7.02 H TSH Urine Color Urine Appearance Urine pH Ur Specific [place] Urine Protein Urine Glucose (UA) Urine Ketones Urine Blood Urine Nitrite Urine Bilirubin Urine Urobilinogen Ur Leukocyte Esterase Urine WBC (Auto) Urine RBC (Auto) U Hyaline Cast (Auto) U Epithel Cells (Auto) Urine Bacteria (Auto) Urine Crystals Calcium Oxalate Crystal Amorphous Sediment Nasal Screen MRSA (PCR) Urine Opiates Screen U Codeine Confrm GC/MS Ur Morphine (GC/MS) Ur Hydrocodone (GC/MS) Ur Norhydrocodone Ur Noroxycodone Urine Oxycodone (GC/MS) U Oxymorphone GC/MS Ur Methadone, Qual Ur Hydromorphone (GC/MS) Urine Barbiturates Ur Phencyclidine (PCP) U Amphetamin/Meth Scrn MDMA (Ecstasy) Screen U Benzodiazepines Scrn Ur Cocaine Metabolite U Marijuana (THC) Screen Hep Bs Antigen Hep Bs Antibody Hep Bs Antibody, Quant Hepatitis C Ab Screen 05/05/19 05/05/19 05/05/19 13:59 14:04 14:04 WBC RBC Hgb Hct MCV MCH MCHC RDW Std Deviation RDW Coeff of Katherine Plt Count MPV Immature Gran % (Auto) Neut % (Auto) Lymph % (Auto) [place] % (Auto) Eos % (Auto) Baso % (Auto) Immature Gran # (Auto) Neut # (Auto) Lymph # (Auto) [place] # (Auto) Eos # (Auto) Baso # (Auto) Sample Site POC pH POC pCO2 POC pO2 POC HCO3 POC Total CO2 POC Base Excess POC ABG O2 Sat Kunal Test VBG pH VBG pCO2 VBG pO2 VBG HCO3 VBG O2 Saturation VBG Base Excess Barometric Pressure O2 Delivery Device POC O2 Rate POC FiO2 IPAP Sodium Potassium Chloride Carbon Dioxide Anion Gap BUN Creatinine Est Cr Clr Drug Dosing Est GFR ( Amer) Est GFR (Non-Af Amer) BUN/Creatinine Ratio Glucose POC Glucose Estimat Average Glucose Hemoglobin A1c Osmolality Calcium Ionized Calcium Phosphorus Magnesium Total Bilirubin AST ALT Alkaline Phosphatase Total Creatine Kinase Total Protein Albumin Globulin Albumin/Globulin Ratio Procalcitonin TSH Urine Color Dark Yellow Urine Appearance Cloudy A Urine pH 5.0 Ur Specific [place] 1.030 Urine Protein Trace H Urine Glucose (UA) 1+ H Urine Ketones Negative Urine Blood 1+ H Urine Nitrite Negative Urine Bilirubin Negative Urine Urobilinogen Negative Ur Leukocyte Esterase 1+ H Urine WBC (Auto) 1-5 Urine RBC (Auto) 10-30 H U Hyaline Cast (Auto) 1-5 U Epithel Cells (Auto) 20-30 H Urine Bacteria (Auto) Negative Urine Crystals Not Reportable Calcium Oxalate Crystal Present A Amorphous Sediment Present A Nasal Screen MRSA (PCR) Urine Opiates Screen Pos H U Codeine Confrm GC/MS Ur Morphine (GC/MS) Ur Hydrocodone (GC/MS) Ur Norhydrocodone Ur Noroxycodone Urine Oxycodone (GC/MS) U Oxymorphone GC/MS Ur Methadone, Qual Neg Ur Hydromorphone (GC/MS) Urine Barbiturates Neg Ur Phencyclidine (PCP) Neg U Amphetamin/Meth Scrn Neg MDMA (Ecstasy) Screen Neg U Benzodiazepines Scrn Neg Ur Cocaine Metabolite Neg U Marijuana (THC) Screen Neg Hep Bs Antigen Neg Hep Bs Antibody Immune Hep Bs Antibody, Quant 12.22 Hepatitis C Ab Screen Neg 05/05/19 05/05/19 05/05/19 14:04 14:17 15:50 WBC RBC Hgb Hct MCV MCH MCHC RDW Std Deviation RDW Coeff of Katherine Plt Count MPV Immature Gran % (Auto) Neut % (Auto) Lymph % (Auto) [place] % (Auto) Eos % (Auto) Baso % (Auto) Immature Gran # (Auto) Neut # (Auto) Lymph # (Auto) [place] # (Auto) Eos # (Auto) Baso # (Auto) Sample Site POC pH POC pCO2 POC pO2 POC HCO3 POC Total CO2 POC Base Excess POC ABG O2 Sat Kunal Test VBG pH VBG pCO2 VBG pO2 VBG HCO3 VBG O2 Saturation VBG Base Excess Barometric Pressure O2 Delivery Device POC O2 Rate POC FiO2 IPAP Sodium Potassium Chloride Carbon Dioxide Anion Gap BUN Creatinine Est Cr Clr Drug Dosing Est GFR ( Amer) Est GFR (Non-Af Amer) BUN/Creatinine Ratio Glucose POC Glucose Estimat Average Glucose Hemoglobin A1c Osmolality Calcium Ionized Calcium 0.57 L* Phosphorus Magnesium Total Bilirubin AST ALT Alkaline Phosphatase Total Creatine Kinase Total Protein Albumin Globulin Albumin/Globulin Ratio Procalcitonin TSH Urine Color Urine Appearance Urine pH Ur Specific [place] Urine Protein Urine Glucose (UA) Urine Ketones Urine Blood Urine Nitrite Urine Bilirubin Urine Urobilinogen Ur Leukocyte Esterase Urine WBC (Auto) Urine RBC (Auto) U Hyaline Cast (Auto) U Epithel Cells (Auto) Urine Bacteria (Auto) Urine Crystals Calcium Oxalate Crystal Amorphous Sediment Nasal Screen MRSA (PCR) Negative Urine Opiates Screen U Codeine Confrm GC/MS Pending Ur Morphine (GC/MS) Pending Ur Hydrocodone (GC/MS) Pending Ur Norhydrocodone Pending Ur Noroxycodone Pending Urine Oxycodone (GC/MS) Pending U Oxymorphone GC/MS Pending Ur Methadone, Qual Ur Hydromorphone (GC/MS) Pending Urine Barbiturates Ur Phencyclidine (PCP) U Amphetamin/Meth Scrn MDMA (Ecstasy) Screen U Benzodiazepines Scrn Ur Cocaine Metabolite U Marijuana (THC) Screen Hep Bs Antigen Hep Bs Antibody Hep Bs Antibody, Quant Hepatitis C Ab Screen 05/05/19 05/05/19 05/05/19 16:42 16:42 17:09 WBC RBC Hgb Hct MCV MCH MCHC RDW Std Deviation RDW Coeff of Katherine Plt Count MPV Immature Gran % (Auto) Neut % (Auto) Lymph % (Auto) [place] % (Auto) Eos % (Auto) Baso % (Auto) Immature Gran # (Auto) Neut # (Auto) Lymph # (Auto) [place] # (Auto) Eos # (Auto) Baso # (Auto) Sample Site R Radial POC pH 7.13 L* POC pCO2 32 L POC pO2 80 POC HCO3 11 L POC Total CO2 12 L POC Base Excess -18.0 L POC ABG O2 Sat 91.0 Kunal Test Pass VBG pH VBG pCO2 VBG pO2 VBG HCO3 VBG O2 Saturation VBG Base Excess Barometric Pressure O2 Delivery Device Cannula POC O2 Rate POC FiO2 IPAP Sodium 130 L Potassium 6.7 H* Chloride 96 L Carbon Dioxide 12 L Anion Gap 22.0 H BUN 107 H Creatinine 12.80 H* D Est Cr Clr Drug Dosing 7.7 Est GFR ( Amer) 4.5 Est GFR (Non-Af Amer) 3.9 BUN/Creatinine Ratio 8.4 L Glucose 125 H POC Glucose Estimat Average Glucose Hemoglobin A1c Osmolality Calcium 5.0 L* Ionized Calcium 0.56 L* Phosphorus Magnesium Total Bilirubin AST ALT Alkaline Phosphatase Total Creatine Kinase Total Protein Albumin Globulin Albumin/Globulin Ratio Procalcitonin TSH Urine Color Urine Appearance Urine pH Ur Specific [place] Urine Protein Urine Glucose (UA) Urine Ketones Urine Blood Urine Nitrite Urine Bilirubin Urine Urobilinogen Ur Leukocyte Esterase Urine WBC (Auto) Urine RBC (Auto) U Hyaline Cast (Auto) U Epithel Cells (Auto) Urine Bacteria (Auto) Urine Crystals Calcium Oxalate Crystal Amorphous Sediment Nasal Screen MRSA (PCR) Urine Opiates Screen U Codeine Confrm GC/MS Ur Morphine (GC/MS) Ur Hydrocodone (GC/MS) Ur Norhydrocodone Ur Noroxycodone Urine Oxycodone (GC/MS) U Oxymorphone GC/MS Ur Methadone, Qual Ur Hydromorphone (GC/MS) Urine Barbiturates Ur Phencyclidine (PCP) U Amphetamin/Meth Scrn MDMA (Ecstasy) Screen U Benzodiazepines Scrn Ur Cocaine Metabolite U Marijuana (THC) Screen Hep Bs Antigen Hep Bs Antibody Hep Bs Antibody, Quant Hepatitis C Ab Screen 05/05/19 05/05/19 05/05/19 19:55 20:01 20:01 WBC 9.78 RBC 3.43 L Hgb 11.1 L Hct 31.4 L MCV 91.5 MCH 32.4 MCHC 35.4 RDW Std Deviation 48.4 H RDW Coeff of Katherine 14.6 H Plt Count 115 L MPV 8.6 Immature Gran % (Auto) 0.3 Neut % (Auto) 69.1 Lymph % (Auto) 22.9 [place] % (Auto) 6.6 Eos % (Auto) 0.9 Baso % (Auto) 0.2 Immature Gran # (Auto) 0.03 H Neut # (Auto) 6.75 H Lymph # (Auto) 2.24 [place] # (Auto) 0.65 H Eos # (Auto) 0.09 Baso # (Auto) 0.02 Sample Site POC pH POC pCO2 POC pO2 POC HCO3 POC Total CO2 POC Base Excess POC ABG O2 Sat Kunal Test VBG pH VBG pCO2 VBG pO2 VBG HCO3 VBG O2 Saturation VBG Base Excess Barometric Pressure O2 Delivery Device POC O2 Rate POC FiO2 IPAP Sodium 127 L Potassium 5.7 H Chloride 95 L Carbon Dioxide 15 L Anion Gap 17.0 H BUN 106 H Creatinine 11.80 H* D Est Cr Clr Drug Dosing 8.4 Est GFR ( Amer) 5.0 Est GFR (Non-Af Amer) 4.3 BUN/Creatinine Ratio 9.0 L Glucose 183 H POC Glucose Estimat Average Glucose Hemoglobin A1c Osmolality 312 H Calcium 5.3 L* Ionized Calcium Phosphorus 10.0 H Magnesium Total Bilirubin AST ALT Alkaline Phosphatase Total Creatine Kinase Total Protein Albumin Globulin Albumin/Globulin Ratio Procalcitonin TSH 0.591 Urine Color Urine Appearance Urine pH Ur Specific [place] Urine Protein Urine Glucose (UA) Urine Ketones Urine Blood Urine Nitrite Urine Bilirubin Urine Urobilinogen Ur Leukocyte Esterase Urine WBC (Auto) Urine RBC (Auto) U Hyaline Cast (Auto) U Epithel Cells (Auto) Urine Bacteria (Auto) Urine Crystals Calcium Oxalate Crystal Amorphous Sediment Nasal Screen MRSA (PCR) Urine Opiates Screen U Codeine Confrm GC/MS Ur Morphine (GC/MS) Ur Hydrocodone (GC/MS) Ur Norhydrocodone Ur Noroxycodone Urine Oxycodone (GC/MS) U Oxymorphone GC/MS Ur Methadone, Qual Ur Hydromorphone (GC/MS) Urine Barbiturates Ur Phencyclidine (PCP) U Amphetamin/Meth Scrn MDMA (Ecstasy) Screen U Benzodiazepines Scrn Ur Cocaine Metabolite U Marijuana (THC) Screen Hep Bs Antigen Hep Bs Antibody Hep Bs Antibody, Quant Hepatitis C Ab Screen 05/05/19 05/05/19 05/05/19 20:01 20:01 20:46 WBC RBC Hgb Hct MCV MCH MCHC RDW Std Deviation RDW Coeff of Katherine Plt Count MPV Immature Gran % (Auto) Neut % (Auto) Lymph % (Auto) [place] % (Auto) Eos % (Auto) Baso % (Auto) Immature Gran # (Auto) Neut # (Auto) Lymph # (Auto) [place] # (Auto) Eos # (Auto) Baso # (Auto) Sample Site R Radial POC pH 7.23 L POC pCO2 35 POC pO2 146 H POC HCO3 15 L POC Total CO2 16 L POC Base Excess -13.0 L POC ABG O2 Sat 99.0 H Kunal Test Pass VBG pH 7.20 L VBG pCO2 VBG pO2 VBG HCO3 VBG O2 Saturation VBG Base Excess Barometric Pressure O2 Delivery Device BIPAP POC O2 Rate 23 POC FiO2 80 IPAP 15 Sodium Potassium Chloride Carbon Dioxide Anion Gap BUN Creatinine Est Cr Clr Drug Dosing Est GFR ( Amer) Est GFR (Non-Af Amer) BUN/Creatinine Ratio Glucose POC Glucose Estimat Average Glucose Hemoglobin A1c Osmolality Calcium Ionized Calcium 0.59 L* Phosphorus Magnesium Total Bilirubin AST ALT Alkaline Phosphatase Total Creatine Kinase Total Protein Albumin Globulin Albumin/Globulin Ratio Procalcitonin TSH Urine Color Urine Appearance Urine pH Ur Specific [place] Urine Protein Urine Glucose (UA) Urine Ketones Urine Blood Urine Nitrite Urine Bilirubin Urine Urobilinogen Ur Leukocyte Esterase Urine WBC (Auto) Urine RBC (Auto) U Hyaline Cast (Auto) U Epithel Cells (Auto) Urine Bacteria (Auto) Urine Crystals Calcium Oxalate Crystal Amorphous Sediment Nasal Screen MRSA (PCR) Urine Opiates Screen U Codeine Confrm GC/MS Ur Morphine (GC/MS) Ur Hydrocodone (GC/MS) Ur Norhydrocodone Ur Noroxycodone Urine Oxycodone (GC/MS) U Oxymorphone GC/MS Ur Methadone, Qual Ur Hydromorphone (GC/MS) Urine Barbiturates Ur Phencyclidine (PCP) U Amphetamin/Meth Scrn MDMA (Ecstasy) Screen U Benzodiazepines Scrn Ur Cocaine Metabolite U Marijuana (THC) Screen Hep Bs Antigen Hep Bs Antibody Hep Bs Antibody, Quant Hepatitis C Ab Screen 05/06/19 05/06/19 05/06/19 00:22 01:06 01:06 WBC RBC Hgb Hct MCV MCH MCHC RDW Std Deviation RDW Coeff of Katherine Plt Count MPV Immature Gran % (Auto) Neut % (Auto) Lymph % (Auto) [place] % (Auto) Eos % (Auto) Baso % (Auto) Immature Gran # (Auto) Neut # (Auto) Lymph # (Auto) [place] # (Auto) Eos # (Auto) Baso # (Auto) Sample Site POC pH POC pCO2 POC pO2 POC HCO3 POC Total CO2 POC Base Excess POC ABG O2 Sat Kunal Test VBG pH VBG pCO2 VBG pO2 VBG HCO3 VBG O2 Saturation VBG Base Excess Barometric Pressure O2 Delivery Device POC O2 Rate POC FiO2 IPAP Sodium 132 L Potassium 4.1 D Chloride 96 L Carbon Dioxide 22 Anion Gap 14.0 H BUN 98 H Creatinine 8.64 H* D Est Cr Clr Drug Dosing 11.4 Est GFR ( Amer) 7.3 Est GFR (Non-Af Amer) 6.3 BUN/Creatinine Ratio 11.3 Glucose 201 H POC Glucose 186 H Estimat Average Glucose Hemoglobin A1c Osmolality Calcium 5.5 L* Ionized Calcium 0.63 L* Phosphorus Magnesium Total Bilirubin AST ALT Alkaline Phosphatase Total Creatine Kinase Total Protein Albumin Globulin Albumin/Globulin Ratio Procalcitonin TSH Urine Color Urine Appearance Urine pH Ur Specific [place] Urine Protein Urine Glucose (UA) Urine Ketones Urine Blood Urine Nitrite Urine Bilirubin Urine Urobilinogen Ur Leukocyte Esterase Urine WBC (Auto) Urine RBC (Auto) U Hyaline Cast (Auto) U Epithel Cells (Auto) Urine Bacteria (Auto) Urine Crystals Calcium Oxalate Crystal Amorphous Sediment Nasal Screen MRSA (PCR) Urine Opiates Screen U Codeine Confrm GC/MS Ur Morphine (GC/MS) Ur Hydrocodone (GC/MS) Ur Norhydrocodone Ur Noroxycodone Urine Oxycodone (GC/MS) U Oxymorphone GC/MS Ur Methadone, Qual Ur Hydromorphone (GC/MS) Urine Barbiturates Ur Phencyclidine (PCP) U Amphetamin/Meth Scrn MDMA (Ecstasy) Screen U Benzodiazepines Scrn Ur Cocaine Metabolite U Marijuana (THC) Screen Hep Bs Antigen Hep Bs Antibody Hep Bs Antibody, Quant Hepatitis C Ab Screen 05/06/19 05/06/19 05/06/19 01:09 04:42 04:42 WBC 6.32 RBC 3.61 L Hgb 11.6 L Hct 32.7 L MCV 90.6 MCH 32.1 MCHC 35.5 RDW Std Deviation 47.1 H RDW Coeff of Katherine 14.2 Plt Count 104 L MPV 8.9 Immature Gran % (Auto) 0.2 Neut % (Auto) 68.1 Lymph % (Auto) 20.9 [place] % (Auto) 10.1 Eos % (Auto) 0.5 Baso % (Auto) 0.2 Immature Gran # (Auto) 0.01 Neut # (Auto) 4.31 Lymph # (Auto) 1.32 [place] # (Auto) 0.64 H Eos # (Auto) 0.03 Baso # (Auto) 0.01 Sample Site POC pH POC pCO2 POC pO2 POC HCO3 POC Total CO2 POC Base Excess POC ABG O2 Sat Kunal Test VBG pH 7.33 L VBG pCO2 VBG pO2 VBG HCO3 VBG O2 Saturation VBG Base Excess Barometric Pressure O2 Delivery Device POC O2 Rate POC FiO2 IPAP Sodium Potassium Chloride Carbon Dioxide Anion Gap BUN Creatinine Est Cr Clr Drug Dosing Est GFR ( Amer) Est GFR (Non-Af Amer) BUN/Creatinine Ratio Glucose POC Glucose Estimat Average Glucose 189 Hemoglobin A1c 8.2 H Osmolality Calcium Ionized Calcium Phosphorus Magnesium Total Bilirubin AST ALT Alkaline Phosphatase Total Creatine Kinase Total Protein Albumin Globulin Albumin/Globulin Ratio Procalcitonin TSH Urine Color Urine Appearance Urine pH Ur Specific [place] Urine Protein Urine Glucose (UA) Urine Ketones Urine Blood Urine Nitrite Urine Bilirubin Urine Urobilinogen Ur Leukocyte Esterase Urine WBC (Auto) Urine RBC (Auto) U Hyaline Cast (Auto) U Epithel Cells (Auto) Urine Bacteria (Auto) Urine Crystals Calcium Oxalate Crystal Amorphous Sediment Nasal Screen MRSA (PCR) Urine Opiates Screen U Codeine Confrm GC/MS Ur Morphine (GC/MS) Ur Hydrocodone (GC/MS) Ur Norhydrocodone Ur Noroxycodone Urine Oxycodone (GC/MS) U Oxymorphone GC/MS Ur Methadone, Qual Ur Hydromorphone (GC/MS) Urine Barbiturates Ur Phencyclidine (PCP) U Amphetamin/Meth Scrn MDMA (Ecstasy) Screen U Benzodiazepines Scrn Ur Cocaine Metabolite U Marijuana (THC) Screen Hep Bs Antigen Hep Bs Antibody Hep Bs Antibody, Quant Hepatitis C Ab Screen 05/06/19 05/06/19 05/06/19 04:42 04:42 04:42 WBC RBC Hgb Hct MCV MCH MCHC RDW Std Deviation RDW Coeff of Katherine Plt Count MPV Immature Gran % (Auto) Neut % (Auto) Lymph % (Auto) [place] % (Auto) Eos % (Auto) Baso % (Auto) Immature Gran # (Auto) Neut # (Auto) Lymph # (Auto) [place] # (Auto) Eos # (Auto) Baso # (Auto) Sample Site POC pH POC pCO2 POC pO2 POC HCO3 POC Total CO2 POC Base Excess POC ABG O2 Sat Kunal Test VBG pH 7.39 VBG pCO2 38 VBG pO2 57 VBG HCO3 23 VBG O2 Saturation 88.3 VBG Base Excess -1.8 Barometric Pressure 732.5 O2 Delivery Device POC O2 Rate POC FiO2 IPAP Sodium 134 L Potassium 4.0 Chloride 98 Carbon Dioxide 24 Anion Gap 12.0 H BUN 89 H Creatinine 6.71 H* D Est Cr Clr Drug Dosing 14.7 Est GFR ( Amer) 9.9 Est GFR (Non-Af Amer) 8.5 BUN/Creatinine Ratio 13.3 Glucose 198 H POC Glucose Estimat Average Glucose Hemoglobin A1c Osmolality Calcium 5.6 L* Ionized Calcium 0.63 L* Phosphorus Magnesium 2.3 Total Bilirubin 0.7 AST 163 H ALT 90 H Alkaline Phosphatase 88 Total Creatine Kinase 5350 H Total Protein 7.7 Albumin 3.1 L Globulin 4.6 H Albumin/Globulin Ratio 0.7 L Procalcitonin TSH Urine Color Urine Appearance Urine pH Ur Specific [place] Urine Protein Urine Glucose (UA) Urine Ketones Urine Blood Urine Nitrite Urine Bilirubin Urine Urobilinogen Ur Leukocyte Esterase Urine WBC (Auto) Urine RBC (Auto) U Hyaline Cast (Auto) U Epithel Cells (Auto) Urine Bacteria (Auto) Urine Crystals Calcium Oxalate Crystal Amorphous Sediment Nasal Screen MRSA (PCR) Urine Opiates Screen U Codeine Confrm GC/MS Ur Morphine (GC/MS) Ur Hydrocodone (GC/MS) Ur Norhydrocodone Ur Noroxycodone Urine Oxycodone (GC/MS) U Oxymorphone GC/MS Ur Methadone, Qual Ur Hydromorphone (GC/MS) Urine Barbiturates Ur Phencyclidine (PCP) U Amphetamin/Meth Scrn MDMA (Ecstasy) Screen U Benzodiazepines Scrn Ur Cocaine Metabolite U Marijuana (THC) Screen Hep Bs Antigen Hep Bs Antibody Hep Bs Antibody, Quant Hepatitis C Ab Screen 05/06/19 05/06/19 05/06/19 05:59 08:57 09:01 WBC RBC Hgb Hct MCV MCH MCHC RDW Std Deviation RDW Coeff of Katherine Plt Count MPV Immature Gran % (Auto) Neut % (Auto) Lymph % (Auto) [place] % (Auto) Eos % (Auto) Baso % (Auto) Immature Gran # (Auto) Neut # (Auto) Lymph # (Auto) [place] # (Auto) Eos # (Auto) Baso # (Auto) Sample Site POC pH POC pCO2 POC pO2 POC HCO3 POC Total CO2 POC Base Excess POC ABG O2 Sat Kunal Test VBG pH 7.46 H VBG pCO2 VBG pO2 VBG HCO3 VBG O2 Saturation VBG Base Excess Barometric Pressure O2 Delivery Device POC O2 Rate POC FiO2 IPAP Sodium 139 Potassium 4.1 Chloride 99 Carbon Dioxide 29 Anion Gap 11.0 BUN 77 H Creatinine 4.32 H D Est Cr Clr Drug Dosing 22.7 Est GFR ( Amer) 16.8 Est GFR (Non-Af Amer) 14.5 BUN/Creatinine Ratio 17.8 Glucose 217 H POC Glucose 203 H Estimat Average Glucose Hemoglobin A1c Osmolality Calcium 6.6 L D Ionized Calcium Phosphorus 4.2 D Magnesium Total Bilirubin AST ALT Alkaline Phosphatase Total Creatine Kinase Total Protein Albumin Globulin Albumin/Globulin Ratio Procalcitonin TSH Urine Color Urine Appearance Urine pH Ur Specific [place] Urine Protein Urine Glucose (UA) Urine Ketones Urine Blood Urine Nitrite Urine Bilirubin Urine Urobilinogen Ur Leukocyte Esterase Urine WBC (Auto) Urine RBC (Auto) U Hyaline Cast (Auto) U Epithel Cells (Auto) Urine Bacteria (Auto) Urine Crystals Calcium Oxalate Crystal Amorphous Sediment Nasal Screen MRSA (PCR) Urine Opiates Screen U Codeine Confrm GC/MS Ur Morphine (GC/MS) Ur Hydrocodone (GC/MS) Ur Norhydrocodone Ur Noroxycodone Urine Oxycodone (GC/MS) U Oxymorphone GC/MS Ur Methadone, Qual Ur Hydromorphone (GC/MS) Urine Barbiturates Ur Phencyclidine (PCP) U Amphetamin/Meth Scrn MDMA (Ecstasy) Screen U Benzodiazepines Scrn Ur Cocaine Metabolite U Marijuana (THC) Screen Hep Bs Antigen Hep Bs Antibody Hep Bs Antibody, Quant Hepatitis C Ab Screen 05/06/19 05/06/19 05/06/19 11:46 12:53 12:53 WBC RBC Hgb Hct MCV MCH MCHC RDW Std Deviation RDW Coeff of Katherine Plt Count MPV Immature Gran % (Auto) Neut % (Auto) Lymph % (Auto) [place] % (Auto) Eos % (Auto) Baso % (Auto) Immature Gran # (Auto) Neut # (Auto) Lymph # (Auto) [place] # (Auto) Eos # (Auto) Baso # (Auto) Sample Site POC pH POC pCO2 POC pO2 POC HCO3 POC Total CO2 POC Base Excess POC ABG O2 Sat Kunal Test VBG pH 7.47 H VBG pCO2 VBG pO2 VBG HCO3 VBG O2 Saturation VBG Base Excess Barometric Pressure O2 Delivery Device POC O2 Rate POC FiO2 IPAP Sodium 141 Potassium 3.9 Chloride 101 Carbon Dioxide 31 Anion Gap 9.0 BUN 69 H Creatinine 2.99 H D Est Cr Clr Drug Dosing 32.9 Est GFR ( Amer) 26.2 Est GFR (Non-Af Amer) 22.6 BUN/Creatinine Ratio 23.2 H Glucose 198 H POC Glucose 219 H Estimat Average Glucose Hemoglobin A1c Osmolality Calcium 7.4 L Ionized Calcium Phosphorus Magnesium Total Bilirubin AST ALT Alkaline Phosphatase Total Creatine Kinase Total Protein Albumin Globulin Albumin/Globulin Ratio Procalcitonin TSH Urine Color Urine Appearance Urine pH Ur Specific [place] Urine Protein Urine Glucose (UA) Urine Ketones Urine Blood Urine Nitrite Urine Bilirubin Urine Urobilinogen Ur Leukocyte Esterase Urine WBC (Auto) Urine RBC (Auto) U Hyaline Cast (Auto) U Epithel Cells (Auto) Urine Bacteria (Auto) Urine Crystals Calcium Oxalate Crystal Amorphous Sediment Nasal Screen MRSA (PCR) Urine Opiates Screen U Codeine Confrm GC/MS Ur Morphine (GC/MS) Ur Hydrocodone (GC/MS) Ur Norhydrocodone Ur Noroxycodone Urine Oxycodone (GC/MS) U Oxymorphone GC/MS Ur Methadone, Qual Ur Hydromorphone (GC/MS) Urine Barbiturates Ur Phencyclidine (PCP) U Amphetamin/Meth Scrn MDMA (Ecstasy) Screen U Benzodiazepines Scrn Ur Cocaine Metabolite U Marijuana (THC) Screen Hep Bs Antigen Hep Bs Antibody Hep Bs Antibody, Quant Hepatitis C Ab Screen (1) Acute kidney failure Acute renal failure type: unspecified Qualified Code(s): N17.9 - Acute kidney failure, unspecified (2) Rhabdomyolysis Encounter type: initial encounter Rhabdomyolysis type: traumatic Qualified Code(s): T79.6XXA - Traumatic ischemia of muscle, initial encounter
[2019-05-06] MEDS: THIAMINE HCL 100 MG in SYRINGE 9 ML IV SCH (09:19)
[2019-05-06] MEDS: FOLIC ACID 1 MG in SYRINGE 9.8 ML IV SCH (09:19)
[2019-05-06] MEDS: PIPERACILLIN/TAZOBACTAM 3.375 GM in DEXTROSE 5% 100 ML IV SCH ×2 (09:32→22:32)
[2019-05-06 09:45] LABS: BUN Creatinine Ratio 17.8 (10-20); Calcium 6.6 mg/dl (8.5-10.1); Creatinine Clr Calc Pharmacy 22.7 ml/min; Est GFR (African American) 16.8; Est GFR (Non-African American) 14.5; Phosphorus 4.2 mg/dl (2.5-4.9); Potassium 4.1 mmol/L (3.5-5.1)
--- NOTE | 2019-05-06 10:04 | Critical Care Progress Note ---
Date of Service May 06, 2019 Assessment & Plan (1) Acute kidney failure: Patient does not appear to need dialysis at this point. Management per nephrology; IV fluids changed to half-normal saline with 1 amp of bicarb Recheck phosphorus, continue calcium repletion (2) Rhabdomyolysis: Continue bicarb drip and monitor CK (3) Cirrhosis of liver: Avoid hepatotoxins, will need counseling on abstinence from alcohol (4) Hypersomnia with sleep apnea: He was not using CPAP at home, will continue CPAP in hospital whenever he is asleep Subjective Patient continued to receive bicarb drip overnight. His potassium and serum bicarb have now normalized and his creatinine is down to 6. He remains significantly hypocalcemic and we will continue to replete his calcium. He utilized BiPAP overnight but we have now transitioned him off of it. His mental status is clearer and he is more alert. He denies dyspnea or chest pain and still complains of some abdominal discomfort. His urine output remains quite brisk. He is complaining of back pain a chronic problem for him and we have restarted his fentanyl patch. Review of Systems Review of Systems: All systems reviewed & are unremarkable except as noted in HPI & below Physical Exam Constitutional: WD/WN, vitals as above Eyes: PERRL, conjunctivae normal, anicteric sclerae Neck: trachea midline, no thyromegaly Supple, no meningismus Respiratory: Auscultation: lungs clear to auscultation bilaterally Cardiovascular: RRR, no murmur, no edema Gastrointestinal (Abdomen): Mild diffuse tenderness, no peritoneal signs, bowel sounds present, passing flatus Skin: No rash petechia or purpura, Neurologic: Nonfocal Results & Data Vital Signs (Past 12 Hours) Vital Signs Temp Pulse Resp BP Pulse Ox 05/06/19 06:01 94 H 129/68 95 05/06/19 06:00 94 H 95 05/06/19 05:31 96 H 122/62 95 05/06/19 05:01 96 H 115/60 94 05/06/19 05:00 95 H 94 05/06/19 04:32 92 H 94 05/06/19 04:31 91 H 106/57 L 94 05/06/19 04:30 93 H 94 05/06/19 04:01 94 H 88/55 L 94 05/06/19 04:00 94 H 94 05/06/19 03:31 37.3 C 100 H 111/67 95 05/06/19 03:30 100 H 95 05/06/19 03:15 91 H 96 05/06/19 03:01 37.2 C 93 H 114/62 95 05/06/19 02:31 93 H 87/62 L 95 05/06/19 02:01 93 H 126/61 95 05/06/19 01:31 91 H 116/59 L 95 05/06/19 01:01 88 100/52 L 95 05/06/19 00:31 110/69 96 05/06/19 00:04 95 H 26 H 96 05/06/19 00:01 95 H 151/78 H 94 05/06/19 00:00 37.5 C 94 H 93 05/05/19 23:55 96 H 05/05/19 23:32 94 H 95 05/05/19 23:31 94 H 134/72 95 05/05/19 23:30 95 H 95 05/05/19 23:01 37.5 C 96 H 144/79 H 94 05/05/19 23:00 96 H 94 05/05/19 22:32 96 H 93 05/05/19 22:31 96 H 18 136/71 93 05/05/19 22:30 98 H 93 05/05/19 22:01 97 H 156/73 H 93 05/05/19 22:00 97 H 93 Laboratory Results 05/06/19 05/06/19 05/06/19 Range/Units 09:01 08:57 05:59 WBC (4.8-10.8) K/uL RBC (4.7-6.1) M/uL Hgb (14.0-18.0) g/dL Hct (42-52) % MCV (80-100) fL MCH (25-34) pg MCHC (32-36) g/dL RDW Std Deviation (36.4-46.3) fL RDW Coeff of Katherine (11.5-14.5) % Plt Count (130-400) K/uL MPV (7.4-10.4) fL Immature Gran % (Auto) % Neut % (Auto) % Lymph % (Auto) % Stanly % (Auto) % Eos % (Auto) % Baso % (Auto) % Immature Gran # (Auto) (0.00-0.02) K/uL Neut # (Auto) (1.4-6.5) K/uL Lymph # (Auto) (1.2-3.4) K/uL Stanly # (Auto) (0.11-0.59) K/uL Eos # (Auto) (0-0.5) K/uL Baso # (Auto) (0-0.2) K/uL ESR (0-14) mm/hr PT (9.0-12.0) Seconds INR (0.9-1.1) APTT (21.0-31.0) Seconds PTT Ratio Sample Site POC pH (7.35-7.45) POC pCO2 (35-46) mmHg POC pO2 (80-95) mmHg POC HCO3 (19-24) susanna/L POC Total CO2 (24-31) mEq/l POC Base Excess (-9-1.8) susanna/L POC ABG O2 Sat (90-95) % Kunal Test VBG pH 7.46 H (7.36-7.41) VBG pCO2 (38-50) mmHg VBG pO2 mmHg VBG HCO3 mmol/L VBG O2 Saturation % VBG Base Excess mEq/L Barometric Pressure mm/Hg O2 Delivery Device POC O2 Rate POC FiO2 % IPAP Sodium 139 (136-145) mmol/L Potassium 4.1 (3.5-5.1) mmol/L Chloride 99 (98-107) mmol/L Carbon Dioxide 29 (21-32) mmol/L Anion Gap 11.0 (3-11) BUN 77 H (7-18) mg/dl Creatinine 4.32 H D (0.6-1.4) mg/dl Est Cr Clr Drug Dosing 22.7 ml/min Est GFR ( Amer) 16.8 Est GFR (Non-Af Amer) 14.5 BUN/Creatinine Ratio 17.8 (10-20) Glucose 217 H (70-99) mg/dl POC Glucose 203 H (70-99) Estimat Average Glucose mg/dl Hemoglobin A1c (4.5-5.6) % Osmolality (280-300) mOsm/kg Lactate (0.4-2.0) mmol/L Calcium 6.6 L D (8.5-10.1) mg/dl Ionized Calcium Phosphorus 4.2 D (2.5-4.9) mg/dl Magnesium (1.8-2.4) mg/dl Total Bilirubin (0.2-1) mg/dl AST (15-37) U/L ALT (12-78) U/L Alkaline Phosphatase (45-117) U/L Total Creatine Kinase (39-308) U/L CK-MB (CK-2) (0.5-3.6) ng/ml Troponin I (0-0.045) ng/ml C-Reactive Protein (0-0.29) mg/dl Total Protein (6.4-8.2) gm/dl Albumin (3.4-5.0) gm/dl Globulin (2.5-4.0) gm/dl Albumin/Globulin Ratio (0.9-2) Procalcitonin (0-0.5) ng/ml TSH (0.300-4.500) uIu/ml Urine Color Urine Appearance (Clear) Urine pH (4.5-7.5) Ur Specific Ovid (1.000-1.030) Urine Protein (Negative) Urine Glucose (UA) (Negative) Urine Ketones (Negative) Urine Blood (Negative) Urine Nitrite (Negative) Urine Bilirubin (Negative) Urine Urobilinogen (Negative) Ur Leukocyte Esterase (Negative) Urine WBC (Auto) (0-5) /hpf Urine RBC (Auto) (0-4) /hpf U Hyaline Cast (Auto) (0-5) /lpf U Epithel Cells (Auto) (0-5) /lpf Urine Bacteria (Auto) (Negative) Urine Crystals Calcium Oxalate Crystal (None Prsent) Amorphous Sediment (None Prsent) Nasal Screen MRSA (PCR) (Negative) Salicylates (2.8-20) mg/dl Urine Opiates Screen (Neg) U Codeine Confrm GC/MS Ur Morphine (GC/MS) Ur Hydrocodone (GC/MS) Ur Norhydrocodone Ur Noroxycodone Urine Oxycodone (GC/MS) U Oxymorphone GC/MS Ur Methadone, Qual (Neg) Ur Hydromorphone (GC/MS) Acetaminophen (10-30) ug/ml Urine Barbiturates (Neg) Ur Phencyclidine (PCP) (Neg) U Amphetamin/Meth Scrn (Neg) MDMA (Ecstasy) Screen (Neg) U Benzodiazepines Scrn (Neg) Ur Cocaine Metabolite (Neg) U Marijuana (THC) Screen (Neg) Ethyl Alcohol mg/dL (0-3) mg/dl Hep Bs Antigen (Neg) Hep Bs Antibody Hep Bs Antibody, Quant (>or=10mIU/mL Immune) mIU/mL Hepatitis C Ab Screen (Neg) 05/06/19 05/06/19 05/06/19 Range/Units 04:42 04:42 04:42 WBC (4.8-10.8) K/uL RBC (4.7-6.1) M/uL Hgb (14.0-18.0) g/dL Hct (42-52) % MCV (80-100) fL MCH (25-34) pg MCHC (32-36) g/dL RDW Std Deviation (36.4-46.3) fL RDW Coeff of Katherine (11.5-14.5) % Plt Count (130-400) K/uL MPV (7.4-10.4) fL Immature Gran % (Auto) % Neut % (Auto) % Lymph % (Auto) % Stanly % (Auto) % Eos % (Auto) % Baso % (Auto) % Immature Gran # (Auto) (0.00-0.02) K/uL Neut # (Auto) (1.4-6.5) K/uL Lymph # (Auto) (1.2-3.4) K/uL Stanly # (Auto) (0.11-0.59) K/uL Eos # (Auto) (0-0.5) K/uL Baso # (Auto) (0-0.2) K/uL ESR (0-14) mm/hr PT (9.0-12.0) Seconds INR (0.9-1.1) APTT (21.0-31.0) Seconds PTT Ratio Sample Site POC pH (7.35-7.45) POC pCO2 (35-46) mmHg POC pO2 (80-95) mmHg POC HCO3 (19-24) susanna/L POC Total CO2 (24-31) mEq/l POC Base Excess (-9-1.8) susanna/L POC ABG O2 Sat (90-95) % Kunal Test VBG pH 7.39 (7.36-7.41) VBG pCO2 38 (38-50) mmHg VBG pO2 57 mmHg VBG HCO3 23 mmol/L VBG O2 Saturation 88.3 % VBG Base Excess -1.8 mEq/L Barometric Pressure 732.5 mm/Hg O2 Delivery Device POC O2 Rate POC FiO2 % IPAP Sodium 134 L (136-145) mmol/L Potassium 4.0 (3.5-5.1) mmol/L Chloride 98 (98-107) mmol/L Carbon Dioxide 24 (21-32) mmol/L Anion Gap 12.0 H (3-11) BUN 89 H (7-18) mg/dl Creatinine 6.71 H* D (0.6-1.4) mg/dl Est Cr Clr Drug Dosing 14.7 ml/min Est GFR ( Amer) 9.9 Est GFR (Non-Af Amer) 8.5 BUN/Creatinine Ratio 13.3 (10-20) Glucose 198 H (70-99) mg/dl POC Glucose (70-99) Estimat Average Glucose mg/dl Hemoglobin A1c (4.5-5.6) % Osmolality (280-300) mOsm/kg Lactate (0.4-2.0) mmol/L Calcium 5.6 L* (8.5-10.1) mg/dl Ionized Calcium 0.63 L* Phosphorus (2.5-4.9) mg/dl Magnesium 2.3 (1.8-2.4) mg/dl Total Bilirubin 0.7 (0.2-1) mg/dl AST 163 H (15-37) U/L ALT 90 H (12-78) U/L Alkaline Phosphatase 88 (45-117) U/L Total Creatine Kinase 5350 H (39-308) U/L CK-MB (CK-2) (0.5-3.6) ng/ml Troponin I (0-0.045) ng/ml C-Reactive Protein (0-0.29) mg/dl Total Protein 7.7 (6.4-8.2) gm/dl Albumin 3.1 L (3.4-5.0) gm/dl Globulin 4.6 H (2.5-4.0) gm/dl Albumin/Globulin Ratio 0.7 L (0.9-2) Procalcitonin (0-0.5) ng/ml TSH (0.300-4.500) uIu/ml Urine Color Urine Appearance (Clear) Urine pH (4.5-7.5) Ur Specific Ovid (1.000-1.030) Urine Protein (Negative) Urine Glucose (UA) (Negative) Urine Ketones (Negative) Urine Blood (Negative) Urine Nitrite (Negative) Urine Bilirubin (Negative) Urine Urobilinogen (Negative) Ur Leukocyte Esterase (Negative) Urine WBC (Auto) (0-5) /hpf Urine RBC (Auto) (0-4) /hpf U Hyaline Cast (Auto) (0-5) /lpf U Epithel Cells (Auto) (0-5) /lpf Urine Bacteria (Auto) (Negative) Urine Crystals Calcium Oxalate Crystal (None Prsent) Amorphous Sediment (None Prsent) Nasal Screen MRSA (PCR) (Negative) Salicylates (2.8-20) mg/dl Urine Opiates Screen (Neg) U Codeine Confrm GC/MS Ur Morphine (GC/MS) Ur Hydrocodone (GC/MS) Ur Norhydrocodone Ur Noroxycodone Urine Oxycodone (GC/MS) U Oxymorphone GC/MS Ur Methadone, Qual (Neg) Ur Hydromorphone (GC/MS) Acetaminophen (10-30) ug/ml Urine Barbiturates (Neg) Ur Phencyclidine (PCP) (Neg) U Amphetamin/Meth Scrn (Neg) MDMA (Ecstasy) Screen (Neg) U Benzodiazepines Scrn (Neg) Ur Cocaine Metabolite (Neg) U Marijuana (THC) Screen (Neg) Ethyl Alcohol mg/dL (0-3) mg/dl Hep Bs Antigen (Neg) Hep Bs Antibody Hep Bs Antibody, Quant (>or=10mIU/mL Immune) mIU/mL Hepatitis C Ab Screen (Neg) 05/06/19 05/06/19 05/06/19 Range/Units 04:42 04:42 01:09 WBC 6.32 (4.8-10.8) K/uL RBC 3.61 L (4.7-6.1) M/uL Hgb 11.6 L (14.0-18.0) g/dL Hct 32.7 L (42-52) % MCV 90.6 (80-100) fL MCH 32.1 (25-34) pg MCHC 35.5 (32-36) g/dL RDW Std Deviation 47.1 H (36.4-46.3) fL RDW Coeff of Katherine 14.2 (11.5-14.5) % Plt Count 104 L (130-400) K/uL MPV 8.9 (7.4-10.4) fL Immature Gran % (Auto) 0.2 % Neut % (Auto) 68.1 % Lymph % (Auto) 20.9 % Stanly % (Auto) 10.1 % Eos % (Auto) 0.5 % Baso % (Auto) 0.2 % Immature Gran # (Auto) 0.01 (0.00-0.02) K/uL Neut # (Auto) 4.31 (1.4-6.5) K/uL Lymph # (Auto) 1.32 (1.2-3.4) K/uL Stanly # (Auto) 0.64 H (0.11-0.59) K/uL Eos # (Auto) 0.03 (0-0.5) K/uL Baso # (Auto) 0.01 (0-0.2) K/uL ESR (0-14) mm/hr PT (9.0-12.0) Seconds INR (0.9-1.1) APTT (21.0-31.0) Seconds PTT Ratio Sample Site POC pH (7.35-7.45) POC pCO2 (35-46) mmHg POC pO2 (80-95) mmHg POC HCO3 (19-24) susanna/L POC Total CO2 (24-31) mEq/l POC Base Excess (-9-1.8) susanna/L POC ABG O2 Sat (90-95) % Kunal Test VBG pH 7.33 L (7.36-7.41) VBG pCO2 (38-50) mmHg VBG pO2 mmHg VBG HCO3 mmol/L VBG O2 Saturation % VBG Base Excess mEq/L Barometric Pressure mm/Hg O2 Delivery Device POC O2 Rate POC FiO2 % IPAP Sodium (136-145) mmol/L Potassium (3.5-5.1) mmol/L Chloride (98-107) mmol/L Carbon Dioxide (21-32) mmol/L Anion Gap (3-11) BUN (7-18) mg/dl Creatinine (0.6-1.4) mg/dl Est Cr Clr Drug Dosing ml/min Est GFR ( Amer) Est GFR (Non-Af Amer) BUN/Creatinine Ratio (10-20) Glucose (70-99) mg/dl POC Glucose (70-99) Estimat Average Glucose 189 mg/dl Hemoglobin A1c 8.2 H (4.5-5.6) % Osmolality (280-300) mOsm/kg Lactate (0.4-2.0) mmol/L Calcium (8.5-10.1) mg/dl Ionized Calcium Phosphorus (2.5-4.9) mg/dl Magnesium (1.8-2.4) mg/dl Total Bilirubin (0.2-1) mg/dl AST (15-37) U/L ALT (12-78) U/L Alkaline Phosphatase (45-117) U/L Total Creatine Kinase (39-308) U/L CK-MB (CK-2) (0.5-3.6) ng/ml Troponin I (0-0.045) ng/ml C-Reactive Protein (0-0.29) mg/dl Total Protein (6.4-8.2) gm/dl Albumin (3.4-5.0) gm/dl Globulin (2.5-4.0) gm/dl Albumin/Globulin Ratio (0.9-2) Procalcitonin (0-0.5) ng/ml TSH (0.300-4.500) uIu/ml Urine Color Urine Appearance (Clear) Urine pH (4.5-7.5) Ur Specific Ovid (1.000-1.030) Urine Protein (Negative) Urine Glucose (UA) (Negative) Urine Ketones (Negative) Urine Blood (Negative) Urine Nitrite (Negative) Urine Bilirubin (Negative) Urine Urobilinogen (Negative) Ur Leukocyte Esterase (Negative) Urine WBC (Auto) (0-5) /hpf Urine RBC (Auto) (0-4) /hpf U Hyaline Cast (Auto) (0-5) /lpf U Epithel Cells (Auto) (0-5) /lpf Urine Bacteria (Auto) (Negative) Urine Crystals Calcium Oxalate Crystal (None Prsent) Amorphous Sediment (None Prsent) Nasal Screen MRSA (PCR) (Negative) Salicylates (2.8-20) mg/dl Urine Opiates Screen (Neg) U Codeine Confrm GC/MS Ur Morphine (GC/MS) Ur Hydrocodone (GC/MS) Ur Norhydrocodone Ur Noroxycodone Urine Oxycodone (GC/MS) U Oxymorphone GC/MS Ur Methadone, Qual (Neg) Ur Hydromorphone (GC/MS) Acetaminophen (10-30) ug/ml Urine Barbiturates (Neg) Ur Phencyclidine (PCP) (Neg) U Amphetamin/Meth Scrn (Neg) MDMA (Ecstasy) Screen (Neg) U Benzodiazepines Scrn (Neg) Ur Cocaine Metabolite (Neg) U Marijuana (THC) Screen (Neg) Ethyl Alcohol mg/dL (0-3) mg/dl Hep Bs Antigen (Neg) Hep Bs Antibody Hep Bs Antibody, Quant (>or=10mIU/mL Immune) mIU/mL Hepatitis C Ab Screen (Neg) 05/06/19 05/06/19 05/06/19 Range/Units 01:06 01:06 00:22 WBC (4.8-10.8) K/uL RBC (4.7-6.1) M/uL Hgb (14.0-18.0) g/dL Hct (42-52) % MCV (80-100) fL MCH (25-34) pg MCHC (32-36) g/dL RDW Std Deviation (36.4-46.3) fL RDW Coeff of Katherine (11.5-14.5) % Plt Count (130-400) K/uL MPV (7.4-10.4) fL Immature Gran % (Auto) % Neut % (Auto) % Lymph % (Auto) % Stanly % (Auto) % Eos % (Auto) % Baso % (Auto) % Immature Gran # (Auto) (0.00-0.02) K/uL Neut # (Auto) (1.4-6.5) K/uL Lymph # (Auto) (1.2-3.4) K/uL Stanly # (Auto) (0.11-0.59) K/uL Eos # (Auto) (0-0.5) K/uL Baso # (Auto) (0-0.2) K/uL ESR (0-14) mm/hr PT (9.0-12.0) Seconds INR (0.9-1.1) APTT (21.0-31.0) Seconds PTT Ratio Sample Site POC pH (7.35-7.45) POC pCO2 (35-46) mmHg POC pO2 (80-95) mmHg POC HCO3 (19-24) susanna/L POC Total CO2 (24-31) mEq/l POC Base Excess (-9-1.8) susanna/L POC ABG O2 Sat (90-95) % Kunal Test VBG pH (7.36-7.41) VBG pCO2 (38-50) mmHg VBG pO2 mmHg VBG HCO3 mmol/L VBG O2 Saturation % VBG Base Excess mEq/L Barometric Pressure mm/Hg O2 Delivery Device POC O2 Rate POC FiO2 % IPAP Sodium 132 L (136-145) mmol/L Potassium 4.1 D (3.5-5.1) mmol/L Chloride 96 L (98-107) mmol/L Carbon Dioxide 22 (21-32) mmol/L Anion Gap 14.0 H (3-11) BUN 98 H (7-18) mg/dl Creatinine 8.64 H* D (0.6-1.4) mg/dl Est Cr Clr Drug Dosing 11.4 ml/min Est GFR ( Amer) 7.3 Est GFR (Non-Af Amer) 6.3 BUN/Creatinine Ratio 11.3 (10-20) Glucose 201 H (70-99) mg/dl POC Glucose 186 H (70-99) Estimat Average Glucose mg/dl Hemoglobin A1c (4.5-5.6) % Osmolality (280-300) mOsm/kg Lactate (0.4-2.0) mmol/L Calcium 5.5 L* (8.5-10.1) mg/dl Ionized Calcium 0.63 L* Phosphorus (2.5-4.9) mg/dl Magnesium (1.8-2.4) mg/dl Total Bilirubin (0.2-1) mg/dl AST (15-37) U/L ALT (12-78) U/L Alkaline Phosphatase (45-117) U/L Total Creatine Kinase (39-308) U/L CK-MB (CK-2) (0.5-3.6) ng/ml Troponin I (0-0.045) ng/ml C-Reactive Protein (0-0.29) mg/dl Total Protein (6.4-8.2) gm/dl Albumin (3.4-5.0) gm/dl Globulin (2.5-4.0) gm/dl Albumin/Globulin Ratio (0.9-2) Procalcitonin (0-0.5) ng/ml TSH (0.300-4.500) uIu/ml Urine Color Urine Appearance (Clear) Urine pH (4.5-7.5) Ur Specific Ovid (1.000-1.030) Urine Protein (Negative) Urine Glucose (UA) (Negative) Urine Ketones (Negative) Urine Blood (Negative) Urine Nitrite (Negative) Urine Bilirubin (Negative) Urine Urobilinogen (Negative) Ur Leukocyte Esterase (Negative) Urine WBC (Auto) (0-5) /hpf Urine RBC (Auto) (0-4) /hpf U Hyaline Cast (Auto) (0-5) /lpf U Epithel Cells (Auto) (0-5) /lpf Urine Bacteria (Auto) (Negative) Urine Crystals Calcium Oxalate Crystal (None Prsent) Amorphous Sediment (None Prsent) Nasal Screen MRSA (PCR) (Negative) Salicylates (2.8-20) mg/dl Urine Opiates Screen (Neg) U Codeine Confrm GC/MS Ur Morphine (GC/MS) Ur Hydrocodone (GC/MS) Ur Norhydrocodone Ur Noroxycodone Urine Oxycodone (GC/MS) U Oxymorphone GC/MS Ur Methadone, Qual (Neg) Ur Hydromorphone (GC/MS) Acetaminophen (10-30) ug/ml Urine Barbiturates (Neg) Ur Phencyclidine (PCP) (Neg) U Amphetamin/Meth Scrn (Neg) MDMA (Ecstasy) Screen (Neg) U Benzodiazepines Scrn (Neg) Ur Cocaine Metabolite (Neg) U Marijuana (THC) Screen (Neg) Ethyl Alcohol mg/dL (0-3) mg/dl Hep Bs Antigen (Neg) Hep Bs Antibody Hep Bs Antibody, Quant (>or=10mIU/mL Immune) mIU/mL Hepatitis C Ab Screen (Neg) 05/05/19 05/05/19 05/05/19 Range/Units 20:46 20:01 20:01 WBC (4.8-10.8) K/uL RBC (4.7-6.1) M/uL Hgb (14.0-18.0) g/dL Hct (42-52) % MCV (80-100) fL MCH (25-34) pg MCHC (32-36) g/dL RDW Std Deviation (36.4-46.3) fL RDW Coeff of Katherine (11.5-14.5) % Plt Count (130-400) K/uL MPV (7.4-10.4) fL Immature Gran % (Auto) % Neut % (Auto) % Lymph % (Auto) % Stanly % (Auto) % Eos % (Auto) % Baso % (Auto) % Immature Gran # (Auto) (0.00-0.02) K/uL Neut # (Auto) (1.4-6.5) K/uL Lymph # (Auto) (1.2-3.4) K/uL Stanly # (Auto) (0.11-0.59) K/uL Eos # (Auto) (0-0.5) K/uL Baso # (Auto) (0-0.2) K/uL ESR (0-14) mm/hr PT (9.0-12.0) Seconds INR (0.9-1.1) APTT (21.0-31.0) Seconds PTT Ratio Sample Site R Radial POC pH 7.23 L (7.35-7.45) POC pCO2 35 (35-46) mmHg POC pO2 146 H (80-95) mmHg POC HCO3 15 L (19-24) susanna/L POC Total CO2 16 L (24-31) mEq/l POC Base Excess -13.0 L (-9-1.8) susanna/L POC ABG O2 Sat 99.0 H (90-95) % Kunal Test Pass VBG pH 7.20 L (7.36-7.41) VBG pCO2 (38-50) mmHg VBG pO2 mmHg VBG HCO3 mmol/L VBG O2 Saturation % VBG Base Excess mEq/L Barometric Pressure mm/Hg O2 Delivery Device BIPAP POC O2 Rate 23 POC FiO2 80 % IPAP 15 Sodium (136-145) mmol/L Potassium (3.5-5.1) mmol/L Chloride (98-107) mmol/L Carbon Dioxide (21-32) mmol/L Anion Gap (3-11) BUN (7-18) mg/dl Creatinine (0.6-1.4) mg/dl Est Cr Clr Drug Dosing ml/min Est GFR ( Amer) Est GFR (Non-Af Amer) BUN/Creatinine Ratio (10-20) Glucose (70-99) mg/dl POC Glucose (70-99) Estimat Average Glucose mg/dl Hemoglobin A1c (4.5-5.6) % Osmolality (280-300) mOsm/kg Lactate (0.4-2.0) mmol/L Calcium (8.5-10.1) mg/dl Ionized Calcium 0.59 L* Phosphorus (2.5-4.9) mg/dl Magnesium (1.8-2.4) mg/dl Total Bilirubin (0.2-1) mg/dl AST (15-37) U/L ALT (12-78) U/L Alkaline Phosphatase (45-117) U/L Total Creatine Kinase (39-308) U/L CK-MB (CK-2) (0.5-3.6) ng/ml Troponin I (0-0.045) ng/ml C-Reactive Protein (0-0.29) mg/dl Total Protein (6.4-8.2) gm/dl Albumin (3.4-5.0) gm/dl Globulin (2.5-4.0) gm/dl Albumin/Globulin Ratio (0.9-2) Procalcitonin (0-0.5) ng/ml TSH (0.300-4.500) uIu/ml Urine Color Urine Appearance (Clear) Urine pH (4.5-7.5) Ur Specific Ovid (1.000-1.030) Urine Protein (Negative) Urine Glucose (UA) (Negative) Urine Ketones (Negative) Urine Blood (Negative) Urine Nitrite (Negative) Urine Bilirubin (Negative) Urine Urobilinogen (Negative) Ur Leukocyte Esterase (Negative) Urine WBC (Auto) (0-5) /hpf Urine RBC (Auto) (0-4) /hpf U Hyaline Cast (Auto) (0-5) /lpf U Epithel Cells (Auto) (0-5) /lpf Urine Bacteria (Auto) (Negative) Urine Crystals Calcium Oxalate Crystal (None Prsent) Amorphous Sediment (None Prsent) Nasal Screen MRSA (PCR) (Negative) Salicylates (2.8-20) mg/dl Urine Opiates Screen (Neg) U Codeine Confrm GC/MS Ur Morphine (GC/MS) Ur Hydrocodone (GC/MS) Ur Norhydrocodone Ur Noroxycodone Urine Oxycodone (GC/MS) U Oxymorphone GC/MS Ur Methadone, Qual (Neg) Ur Hydromorphone (GC/MS) Acetaminophen (10-30) ug/ml Urine Barbiturates (Neg) Ur Phencyclidine (PCP) (Neg) U Amphetamin/Meth Scrn (Neg) MDMA (Ecstasy) Screen (Neg) U Benzodiazepines Scrn (Neg) Ur Cocaine Metabolite (Neg) U Marijuana (THC) Screen (Neg) Ethyl Alcohol mg/dL (0-3) mg/dl Hep Bs Antigen (Neg) Hep Bs Antibody Hep Bs Antibody, Quant (>or=10mIU/mL Immune) mIU/mL Hepatitis C Ab Screen (Neg) 05/05/19 05/05/19 05/05/19 Range/Units 20:01 20:01 19:55 WBC 9.78 (4.8-10.8) K/uL RBC 3.43 L (4.7-6.1) M/uL Hgb 11.1 L (14.0-18.0) g/dL Hct 31.4 L (42-52) % MCV 91.5 (80-100) fL MCH 32.4 (25-34) pg MCHC 35.4 (32-36) g/dL RDW Std Deviation 48.4 H (36.4-46.3) fL RDW Coeff of Katherine 14.6 H (11.5-14.5) % Plt Count 115 L (130-400) K/uL MPV 8.6 (7.4-10.4) fL Immature Gran % (Auto) 0.3 % Neut % (Auto) 69.1 % Lymph % (Auto) 22.9 % Stanly % (Auto) 6.6 % Eos % (Auto) 0.9 % Baso % (Auto) 0.2 % Immature Gran # (Auto) 0.03 H (0.00-0.02) K/uL Neut # (Auto) 6.75 H (1.4-6.5) K/uL Lymph # (Auto) 2.24 (1.2-3.4) K/uL Stanly # (Auto) 0.65 H (0.11-0.59) K/uL Eos # (Auto) 0.09 (0-0.5) K/uL Baso # (Auto) 0.02 (0-0.2) K/uL ESR (0-14) mm/hr PT (9.0-12.0) Seconds INR (0.9-1.1) APTT (21.0-31.0) Seconds PTT Ratio Sample Site POC pH (7.35-7.45) POC pCO2 (35-46) mmHg POC pO2 (80-95) mmHg POC HCO3 (19-24) susanna/L POC Total CO2 (24-31) mEq/l POC Base Excess (-9-1.8) susanna/L POC ABG O2 Sat (90-95) % Kunal Test VBG pH (7.36-7.41) VBG pCO2 (38-50) mmHg VBG pO2 mmHg VBG HCO3 mmol/L VBG O2 Saturation % VBG Base Excess mEq/L Barometric Pressure mm/Hg O2 Delivery Device POC O2 Rate POC FiO2 % IPAP Sodium 127 L (136-145) mmol/L Potassium 5.7 H (3.5-5.1) mmol/L Chloride 95 L (98-107) mmol/L Carbon Dioxide 15 L (21-32) mmol/L Anion Gap 17.0 H (3-11) BUN 106 H (7-18) mg/dl Creatinine 11.80 H* D (0.6-1.4) mg/dl Est Cr Clr Drug Dosing 8.4 ml/min Est GFR ( Amer) 5.0 Est GFR (Non-Af Amer) 4.3 BUN/Creatinine Ratio 9.0 L (10-20) Glucose 183 H (70-99) mg/dl POC Glucose (70-99) Estimat Average Glucose mg/dl Hemoglobin A1c (4.5-5.6) % Osmolality 312 H (280-300) mOsm/kg Lactate (0.4-2.0) mmol/L Calcium 5.3 L* (8.5-10.1) mg/dl Ionized Calcium Phosphorus 10.0 H (2.5-4.9) mg/dl Magnesium (1.8-2.4) mg/dl Total Bilirubin (0.2-1) mg/dl AST (15-37) U/L ALT (12-78) U/L Alkaline Phosphatase (45-117) U/L Total Creatine Kinase (39-308) U/L CK-MB (CK-2) (0.5-3.6) ng/ml Troponin I (0-0.045) ng/ml C-Reactive Protein (0-0.29) mg/dl Total Protein (6.4-8.2) gm/dl Albumin (3.4-5.0) gm/dl Globulin (2.5-4.0) gm/dl Albumin/Globulin Ratio (0.9-2) Procalcitonin (0-0.5) ng/ml TSH 0.591 (0.300-4.500) uIu/ml Urine Color Urine Appearance (Clear) Urine pH (4.5-7.5) Ur Specific Ovid (1.000-1.030) Urine Protein (Negative) Urine Glucose (UA) (Negative) Urine Ketones (Negative) Urine Blood (Negative) Urine Nitrite (Negative) Urine Bilirubin (Negative) Urine Urobilinogen (Negative) Ur Leukocyte Esterase (Negative) Urine WBC (Auto) (0-5) /hpf Urine RBC (Auto) (0-4) /hpf U Hyaline Cast (Auto) (0-5) /lpf U Epithel Cells (Auto) (0-5) /lpf Urine Bacteria (Auto) (Negative) Urine Crystals Calcium Oxalate Crystal (None Prsent) Amorphous Sediment (None Prsent) Nasal Screen MRSA (PCR) (Negative) Salicylates (2.8-20) mg/dl Urine Opiates Screen (Neg) U Codeine Confrm GC/MS Ur Morphine (GC/MS) Ur Hydrocodone (GC/MS) Ur Norhydrocodone Ur Noroxycodone Urine Oxycodone (GC/MS) U Oxymorphone GC/MS Ur Methadone, Qual (Neg) Ur Hydromorphone (GC/MS) Acetaminophen (10-30) ug/ml Urine Barbiturates (Neg) Ur Phencyclidine (PCP) (Neg) U Amphetamin/Meth Scrn (Neg) MDMA (Ecstasy) Screen (Neg) U Benzodiazepines Scrn (Neg) Ur Cocaine Metabolite (Neg) U Marijuana (THC) Screen (Neg) Ethyl Alcohol mg/dL (0-3) mg/dl Hep Bs Antigen (Neg) Hep Bs Antibody Hep Bs Antibody, Quant (>or=10mIU/mL Immune) mIU/mL Hepatitis C Ab Screen (Neg) 05/05/19 05/05/19 05/05/19 Range/Units 17:09 16:42 16:42 WBC (4.8-10.8) K/uL RBC (4.7-6.1) M/uL Hgb (14.0-18.0) g/dL Hct (42-52) % MCV (80-100) fL MCH (25-34) pg MCHC (32-36) g/dL RDW Std Deviation (36.4-46.3) fL RDW Coeff of Katherine (11.5-14.5) % Plt Count (130-400) K/uL MPV (7.4-10.4) fL Immature Gran % (Auto) % Neut % (Auto) % Lymph % (Auto) % Stanly % (Auto) % Eos % (Auto) % Baso % (Auto) % Immature Gran # (Auto) (0.00-0.02) K/uL Neut # (Auto) (1.4-6.5) K/uL Lymph # (Auto) (1.2-3.4) K/uL Stanly # (Auto) (0.11-0.59) K/uL Eos # (Auto) (0-0.5) K/uL Baso # (Auto) (0-0.2) K/uL ESR (0-14) mm/hr PT (9.0-12.0) Seconds INR (0.9-1.1) APTT (21.0-31.0) Seconds PTT Ratio Sample Site R Radial POC pH 7.13 L* (7.35-7.45) POC pCO2 32 L (35-46) mmHg POC pO2 80 (80-95) mmHg POC HCO3 11 L (19-24) susanna/L POC Total CO2 12 L (24-31) mEq/l POC Base Excess -18.0 L (-9-1.8) susanna/L POC ABG O2 Sat 91.0 (90-95) % Kunal Test Pass VBG pH (7.36-7.41) VBG pCO2 (38-50) mmHg VBG pO2 mmHg VBG HCO3 mmol/L VBG O2 Saturation % VBG Base Excess mEq/L Barometric Pressure mm/Hg O2 Delivery Device Cannula POC O2 Rate POC FiO2 % IPAP Sodium 130 L (136-145) mmol/L Potassium 6.7 H* (3.5-5.1) mmol/L Chloride 96 L (98-107) mmol/L Carbon Dioxide 12 L (21-32) mmol/L Anion Gap 22.0 H (3-11) BUN 107 H (7-18) mg/dl Creatinine 12.80 H* D (0.6-1.4) mg/dl Est Cr Clr Drug Dosing 7.7 ml/min Est GFR ( Amer) 4.5 Est GFR (Non-Af Amer) 3.9 BUN/Creatinine Ratio 8.4 L (10-20) Glucose 125 H (70-99) mg/dl POC Glucose (70-99) Estimat Average Glucose mg/dl Hemoglobin A1c (4.5-5.6) % Osmolality (280-300) mOsm/kg Lactate (0.4-2.0) mmol/L Calcium 5.0 L* (8.5-10.1) mg/dl Ionized Calcium 0.56 L* Phosphorus (2.5-4.9) mg/dl Magnesium (1.8-2.4) mg/dl Total Bilirubin (0.2-1) mg/dl AST (15-37) U/L ALT (12-78) U/L Alkaline Phosphatase (45-117) U/L Total Creatine Kinase (39-308) U/L CK-MB (CK-2) (0.5-3.6) ng/ml Troponin I (0-0.045) ng/ml C-Reactive Protein (0-0.29) mg/dl Total Protein (6.4-8.2) gm/dl Albumin (3.4-5.0) gm/dl Globulin (2.5-4.0) gm/dl Albumin/Globulin Ratio (0.9-2) Procalcitonin (0-0.5) ng/ml TSH (0.300-4.500) uIu/ml Urine Color Urine Appearance (Clear) Urine pH (4.5-7.5) Ur Specific Ovid (1.000-1.030) Urine Protein (Negative) Urine Glucose (UA) (Negative) Urine Ketones (Negative) Urine Blood (Negative) Urine Nitrite (Negative) Urine Bilirubin (Negative) Urine Urobilinogen (Negative) Ur Leukocyte Esterase (Negative) Urine WBC (Auto) (0-5) /hpf Urine RBC (Auto) (0-4) /hpf U Hyaline Cast (Auto) (0-5) /lpf U Epithel Cells (Auto) (0-5) /lpf Urine Bacteria (Auto) (Negative) Urine Crystals Calcium Oxalate Crystal (None Prsent) Amorphous Sediment (None Prsent) Nasal Screen MRSA (PCR) (Negative) Salicylates (2.8-20) mg/dl Urine Opiates Screen (Neg) U Codeine Confrm GC/MS Ur Morphine (GC/MS) Ur Hydrocodone (GC/MS) Ur Norhydrocodone Ur Noroxycodone Urine Oxycodone (GC/MS) U Oxymorphone GC/MS Ur Methadone, Qual (Neg) Ur Hydromorphone (GC/MS) Acetaminophen (10-30) ug/ml Urine Barbiturates (Neg) Ur Phencyclidine (PCP) (Neg) U Amphetamin/Meth Scrn (Neg) MDMA (Ecstasy) Screen (Neg) U Benzodiazepines Scrn (Neg) Ur Cocaine Metabolite (Neg) U Marijuana (THC) Screen (Neg) Ethyl Alcohol mg/dL (0-3) mg/dl Hep Bs Antigen (Neg) Hep Bs Antibody Hep Bs Antibody, Quant (>or=10mIU/mL Immune) mIU/mL Hepatitis C Ab Screen (Neg) 05/05/19 05/05/19 05/05/19 Range/Units 15:50 14:17 14:04 WBC (4.8-10.8) K/uL RBC (4.7-6.1) M/uL Hgb (14.0-18.0) g/dL Hct (42-52) % MCV (80-100) fL MCH (25-34) pg MCHC (32-36) g/dL RDW Std Deviation (36.4-46.3) fL RDW Coeff of Katherine (11.5-14.5) % Plt Count (130-400) K/uL MPV (7.4-10.4) fL Immature Gran % (Auto) % Neut % (Auto) % Lymph % (Auto) % Stanly % (Auto) % Eos % (Auto) % Baso % (Auto) % Immature Gran # (Auto) (0.00-0.02) K/uL Neut # (Auto) (1.4-6.5) K/uL Lymph # (Auto) (1.2-3.4) K/uL Stanly # (Auto) (0.11-0.59) K/uL Eos # (Auto) (0-0.5) K/uL Baso # (Auto) (0-0.2) K/uL ESR (0-14) mm/hr PT (9.0-12.0) Seconds INR (0.9-1.1) APTT (21.0-31.0) Seconds PTT Ratio Sample Site POC pH (7.35-7.45) POC pCO2 (35-46) mmHg POC pO2 (80-95) mmHg POC HCO3 (19-24) susanna/L POC Total CO2 (24-31) mEq/l POC Base Excess (-9-1.8) susanna/L POC ABG O2 Sat (90-95) % Kunal Test VBG pH (7.36-7.41) VBG pCO2 (38-50) mmHg VBG pO2 mmHg VBG HCO3 mmol/L VBG O2 Saturation % VBG Base Excess mEq/L Barometric Pressure mm/Hg O2 Delivery Device POC O2 Rate POC FiO2 % IPAP Sodium (136-145) mmol/L Potassium (3.5-5.1) mmol/L Chloride (98-107) mmol/L Carbon Dioxide (21-32) mmol/L Anion Gap (3-11) BUN (7-18) mg/dl Creatinine (0.6-1.4) mg/dl Est Cr Clr Drug Dosing ml/min Est GFR ( Amer) Est GFR (Non-Af Amer) BUN/Creatinine Ratio (10-20) Glucose (70-99) mg/dl POC Glucose (70-99) Estimat Average Glucose mg/dl Hemoglobin A1c (4.5-5.6) % Osmolality (280-300) mOsm/kg Lactate (0.4-2.0) mmol/L Calcium (8.5-10.1) mg/dl Ionized Calcium 0.57 L* Phosphorus (2.5-4.9) mg/dl Magnesium (1.8-2.4) mg/dl Total Bilirubin (0.2-1) mg/dl AST (15-37) U/L ALT (12-78) U/L Alkaline Phosphatase (45-117) U/L Total Creatine Kinase (39-308) U/L CK-MB (CK-2) (0.5-3.6) ng/ml Troponin I (0-0.045) ng/ml C-Reactive Protein (0-0.29) mg/dl Total Protein (6.4-8.2) gm/dl Albumin (3.4-5.0) gm/dl Globulin (2.5-4.0) gm/dl Albumin/Globulin Ratio (0.9-2) Procalcitonin (0-0.5) ng/ml TSH (0.300-4.500) uIu/ml Urine Color Urine Appearance (Clear) Urine pH (4.5-7.5) Ur Specific Ovid (1.000-1.030) Urine Protein (Negative) Urine Glucose (UA) (Negative) Urine Ketones (Negative) Urine Blood (Negative) Urine Nitrite (Negative) Urine Bilirubin (Negative) Urine Urobilinogen (Negative) Ur Leukocyte Esterase (Negative) Urine WBC (Auto) (0-5) /hpf Urine RBC (Auto) (0-4) /hpf U Hyaline Cast (Auto) (0-5) /lpf U Epithel Cells (Auto) (0-5) /lpf Urine Bacteria (Auto) (Negative) Urine Crystals Calcium Oxalate Crystal (None Prsent) Amorphous Sediment (None Prsent) Nasal Screen MRSA (PCR) Negative (Negative) Salicylates (2.8-20) mg/dl Urine Opiates Screen (Neg) U Codeine Confrm GC/MS Pending Ur Morphine (GC/MS) Pending Ur Hydrocodone (GC/MS) Pending Ur Norhydrocodone Pending Ur Noroxycodone Pending Urine Oxycodone (GC/MS) Pending U Oxymorphone GC/MS Pending Ur Methadone, Qual (Neg) Ur Hydromorphone (GC/MS) Pending Acetaminophen (10-30) ug/ml Urine Barbiturates (Neg) Ur Phencyclidine (PCP) (Neg) U Amphetamin/Meth Scrn (Neg) MDMA (Ecstasy) Screen (Neg) U Benzodiazepines Scrn (Neg) Ur Cocaine Metabolite (Neg) U Marijuana (THC) Screen (Neg) Ethyl Alcohol mg/dL (0-3) mg/dl Hep Bs Antigen (Neg) Hep Bs Antibody Hep Bs Antibody, Quant (>or=10mIU/mL Immune) mIU/mL Hepatitis C Ab Screen (Neg) 05/05/19 05/05/19 05/05/19 Range/Units 14:04 14:04 13:59 WBC (4.8-10.8) K/uL RBC (4.7-6.1) M/uL Hgb (14.0-18.0) g/dL Hct (42-52) % MCV (80-100) fL MCH (25-34) pg MCHC (32-36) g/dL RDW Std Deviation (36.4-46.3) fL RDW Coeff of Katherine (11.5-14.5) % Plt Count (130-400) K/uL MPV (7.4-10.4) fL Immature Gran % (Auto) % Neut % (Auto) % Lymph % (Auto) % Stanly % (Auto) % Eos % (Auto) % Baso % (Auto) % Immature Gran # (Auto) (0.00-0.02) K/uL Neut # (Auto) (1.4-6.5) K/uL Lymph # (Auto) (1.2-3.4) K/uL Stanly # (Auto) (0.11-0.59) K/uL Eos # (Auto) (0-0.5) K/uL Baso # (Auto) (0-0.2) K/uL ESR (0-14) mm/hr PT (9.0-12.0) Seconds INR (0.9-1.1) APTT (21.0-31.0) Seconds PTT Ratio Sample Site POC pH (7.35-7.45) POC pCO2 (35-46) mmHg POC pO2 (80-95) mmHg POC HCO3 (19-24) susanna/L POC Total CO2 (24-31) mEq/l POC Base Excess (-9-1.8) susanna/L POC ABG O2 Sat (90-95) % Kunal Test VBG pH (7.36-7.41) VBG pCO2 (38-50) mmHg VBG pO2 mmHg VBG HCO3 mmol/L VBG O2 Saturation % VBG Base Excess mEq/L Barometric Pressure mm/Hg O2 Delivery Device POC O2 Rate POC FiO2 % IPAP Sodium (136-145) mmol/L Potassium (3.5-5.1) mmol/L Chloride (98-107) mmol/L Carbon Dioxide (21-32) mmol/L Anion Gap (3-11) BUN (7-18) mg/dl Creatinine (0.6-1.4) mg/dl Est Cr Clr Drug Dosing ml/min Est GFR ( Amer) Est GFR (Non-Af Amer) BUN/Creatinine Ratio (10-20) Glucose (70-99) mg/dl POC Glucose (70-99) Estimat Average Glucose mg/dl Hemoglobin A1c (4.5-5.6) % Osmolality (280-300) mOsm/kg Lactate (0.4-2.0) mmol/L Calcium (8.5-10.1) mg/dl Ionized Calcium Phosphorus (2.5-4.9) mg/dl Magnesium (1.8-2.4) mg/dl Total Bilirubin (0.2-1) mg/dl AST (15-37) U/L ALT (12-78) U/L Alkaline Phosphatase (45-117) U/L Total Creatine Kinase (39-308) U/L CK-MB (CK-2) (0.5-3.6) ng/ml Troponin I (0-0.045) ng/ml C-Reactive Protein (0-0.29) mg/dl Total Protein (6.4-8.2) gm/dl Albumin (3.4-5.0) gm/dl Globulin (2.5-4.0) gm/dl Albumin/Globulin Ratio (0.9-2) Procalcitonin (0-0.5) ng/ml TSH (0.300-4.500) uIu/ml Urine Color Dark Yellow Urine Appearance Cloudy A (Clear) Urine pH 5.0 (4.5-7.5) Ur Specific Ovid 1.030 (1.000-1.030) Urine Protein Trace H (Negative) Urine Glucose (UA) 1+ H (Negative) Urine Ketones Negative (Negative) Urine Blood 1+ H (Negative) Urine Nitrite Negative (Negative) Urine Bilirubin Negative (Negative) Urine Urobilinogen Negative (Negative) Ur Leukocyte Esterase 1+ H (Negative) Urine WBC (Auto) 1-5 (0-5) /hpf Urine RBC (Auto) 10-30 H (0-4) /hpf U Hyaline Cast (Auto) 1-5 (0-5) /lpf U Epithel Cells (Auto) 20-30 H (0-5) /lpf Urine Bacteria (Auto) Negative (Negative) Urine Crystals Not Reportable Calcium Oxalate Crystal Present A (None Prsent) Amorphous Sediment Present A (None Prsent) Nasal Screen MRSA (PCR) (Negative) Salicylates (2.8-20) mg/dl Urine Opiates Screen Pos H (Neg) U Codeine Confrm GC/MS Ur Morphine (GC/MS) Ur Hydrocodone (GC/MS) Ur Norhydrocodone Ur Noroxycodone Urine Oxycodone (GC/MS) U Oxymorphone GC/MS Ur Methadone, Qual Neg (Neg) Ur Hydromorphone (GC/MS) Acetaminophen (10-30) ug/ml Urine Barbiturates Neg (Neg) Ur Phencyclidine (PCP) Neg (Neg) U Amphetamin/Meth Scrn Neg (Neg) MDMA (Ecstasy) Screen Neg (Neg) U Benzodiazepines Scrn Neg (Neg) Ur Cocaine Metabolite Neg (Neg) U Marijuana (THC) Screen Neg (Neg) Ethyl Alcohol mg/dL (0-3) mg/dl Hep Bs Antigen Neg (Neg) Hep Bs Antibody Immune Hep Bs Antibody, Quant 12.22 (>or=10mIU/mL Immune) mIU/mL Hepatitis C Ab Screen Neg (Neg) 05/05/19 05/05/19 05/05/19 Range/Units 13:54 13:54 12:50 WBC (4.8-10.8) K/uL RBC (4.7-6.1) M/uL Hgb (14.0-18.0) g/dL Hct (42-52) % MCV (80-100) fL MCH (25-34) pg MCHC (32-36) g/dL RDW Std Deviation (36.4-46.3) fL RDW Coeff of Katherine (11.5-14.5) % Plt Count (130-400) K/uL MPV (7.4-10.4) fL Immature Gran % (Auto) % Neut % (Auto) % Lymph % (Auto) % Stan[place] % (Auto) % Eos % (Auto) % Baso % (Auto) % Immature Gran # (Auto) (0.00-0.02) K/uL Neut # (Auto) (1.4-6.5) K/uL Lymph # (Auto) (1.2-3.4) K/uL Stanly # (Auto) (0.11-0.59) K/uL Eos # (Auto) (0-0.5) K/uL Baso # (Auto) (0-0.2) K/uL ESR (0-14) mm/hr PT (9.0-12.0) Seconds INR (0.9-1.1) APTT (21.0-31.0) Seconds PTT Ratio Sample Site POC pH (7.35-7.45) POC pCO2 (35-46) mmHg POC pO2 (80-95) mmHg POC HCO3 (19-24) susanna/L POC Total CO2 (24-31) mEq/l POC Base Excess (-9-1.8) susanna/L POC ABG O2 Sat (90-95) % Kunal Test VBG pH (7.36-7.41) VBG pCO2 (38-50) mmHg VBG pO2 mmHg VBG HCO3 mmol/L VBG O2 Saturation % VBG Base Excess mEq/L Barometric Pressure mm/Hg O2 Delivery Device POC O2 Rate POC FiO2 % IPAP Sodium (136-145) mmol/L Potassium (3.5-5.1) mmol/L Chloride (98-107) mmol/L Carbon Dioxide (21-32) mmol/L Anion Gap (3-11) BUN (7-18) mg/dl Creatinine (0.6-1.4) mg/dl Est Cr Clr Drug Dosing ml/min Est GFR ( Amer) Est GFR (Non-Af Amer) BUN/Creatinine Ratio (10-20) Glucose (70-99) mg/dl POC Glucose (70-99) Estimat Average Glucose mg/dl Hemoglobin A1c (4.5-5.6) % Osmolality (280-300) mOsm/kg Lactate 1.1 (0.4-2.0) mmol/L Calcium (8.5-10.1) mg/dl Ionized Calcium Cancelled Phosphorus (2.5-4.9) mg/dl Magnesium (1.8-2.4) mg/dl Total Bilirubin (0.2-1) mg/dl AST (15-37) U/L ALT (12-78) U/L Alkaline Phosphatase (45-117) U/L Total Creatine Kinase 6880 H (39-308) U/L CK-MB (CK-2) (0.5-3.6) ng/ml Troponin I (0-0.045) ng/ml C-Reactive Protein (0-0.29) mg/dl Total Protein (6.4-8.2) gm/dl Albumin (3.4-5.0) gm/dl Globulin (2.5-4.0) gm/dl Albumin/Globulin Ratio (0.9-2) Procalcitonin (0-0.5) ng/ml TSH (0.300-4.500) uIu/ml Urine Color Urine Appearance (Clear) Urine pH (4.5-7.5) Ur Specific Ovid (1.000-1.030) Urine Protein (Negative) Urine Glucose (UA) (Negative) Urine Ketones (Negative) Urine Blood (Negative) Urine Nitrite (Negative) Urine Bilirubin (Negative) Urine Urobilinogen (Negative) Ur Leukocyte Esterase (Negative) Urine WBC (Auto) (0-5) /hpf Urine RBC (Auto) (0-4) /hpf U Hyaline Cast (Auto) (0-5) /lpf U Epithel Cells (Auto) (0-5) /lpf Urine Bacteria (Auto) (Negative) Urine Crystals Calcium Oxalate Crystal (None Prsent) Amorphous Sediment (None Prsent) Nasal Screen MRSA (PCR) (Negative) Salicylates (2.8-20) mg/dl Urine Opiates Screen (Neg) U Codeine Confrm GC/MS Ur Morphine (GC/MS) Ur Hydrocodone (GC/MS) Ur Norhydrocodone Ur Noroxycodone Urine Oxycodone (GC/MS) U Oxymorphone GC/MS Ur Methadone, Qual (Neg) Ur Hydromorphone (GC/MS) Acetaminophen (10-30) ug/ml Urine Barbiturates (Neg) Ur Phencyclidine (PCP) (Neg) U Amphetamin/Meth Scrn (Neg) MDMA (Ecstasy) Screen (Neg) U Benzodiazepines Scrn (Neg) Ur Cocaine Metabolite (Neg) U Marijuana (THC) Screen (Neg) Ethyl Alcohol mg/dL (0-3) mg/dl Hep Bs Antigen (Neg) Hep Bs Antibody Hep Bs Antibody, Quant (>or=10mIU/mL Immune) mIU/mL Hepatitis C Ab Screen (Neg) 05/05/19 05/05/19 05/05/19 Range/Units 12:48 12:48 12:48 WBC (4.8-10.8) K/uL RBC (4.7-6.1) M/uL Hgb (14.0-18.0) g/dL Hct (42-52) % MCV (80-100) fL MCH (25-34) pg MCHC (32-36) g/dL RDW Std Deviation (36.4-46.3) fL RDW Coeff of Katherine (11.5-14.5) % Plt Count (130-400) K/uL MPV (7.4-10.4) fL Immature Gran % (Auto) % Neut % (Auto) % Lymph % (Auto) % Stan[place] % (Auto) % Eos % (Auto) % Baso % (Auto) % Immature Gran # (Auto) (0.00-0.02) K/uL Neut # (Auto) (1.4-6.5) K/uL Lymph # (Auto) (1.2-3.4) K/uL Stanly # (Auto) (0.11-0.59) K/uL Eos # (Auto) (0-0.5) K/uL Baso # (Auto) (0-0.2) K/uL ESR (0-14) mm/hr PT (9.0-12.0) Seconds INR (0.9-1.1) APTT (21.0-31.0) Seconds PTT Ratio Sample Site POC pH (7.35-7.45) POC pCO2 (35-46) mmHg POC pO2 (80-95) mmHg POC HCO3 (19-24) susanna/L POC Total CO2 (24-31) mEq/l POC Base Excess (-9-1.8) susanna/L POC ABG O2 Sat (90-95) % Kunal Test VBG pH 7.17 L (7.36-7.41) VBG pCO2 28 L (38-50) mmHg VBG pO2 47 mmHg VBG HCO3 10 mmol/L VBG O2 Saturation 75.3 % VBG Base Excess -16.9 mEq/L Barometric Pressure 731.4 mm/Hg O2 Delivery Device POC O2 Rate POC FiO2 % IPAP Sodium (136-145) mmol/L Potassium (3.5-5.1) mmol/L Chloride (98-107) mmol/L Carbon Dioxide (21-32) mmol/L Anion Gap (3-11) BUN (7-18) mg/dl Creatinine (0.6-1.4) mg/dl Est Cr Clr Drug Dosing ml/min Est GFR ( Amer) Est GFR (Non-Af Amer) BUN/Creatinine Ratio (10-20) Glucose (70-99) mg/dl POC Glucose (70-99) Estimat Average Glucose mg/dl Hemoglobin A1c (4.5-5.6) % Osmolality (280-300) mOsm/kg Lactate (0.4-2.0) mmol/L Calcium (8.5-10.1) mg/dl Ionized Calcium Phosphorus (2.5-4.9) mg/dl Magnesium (1.8-2.4) mg/dl Total Bilirubin (0.2-1) mg/dl AST (15-37) U/L ALT (12-78) U/L Alkaline Phosphatase (45-117) U/L Total Creatine Kinase (39-308) U/L CK-MB (CK-2) (0.5-3.6) ng/ml Troponin I (0-0.045) ng/ml C-Reactive Protein (0-0.29) mg/dl Total Protein (6.4-8.2) gm/dl Albumin (3.4-5.0) gm/dl Globulin (2.5-4.0) gm/dl Albumin/Globulin Ratio (0.9-2) Procalcitonin (0-0.5) ng/ml TSH (0.300-4.500) uIu/ml Urine Color Urine Appearance (Clear) Urine pH (4.5-7.5) Ur Specific Ovid (1.000-1.030) Urine Protein (Negative) Urine Glucose (UA) (Negative) Urine Ketones (Negative) Urine Blood (Negative) Urine Nitrite (Negative) Urine Bilirubin (Negative) Urine Urobilinogen (Negative) Ur Leukocyte Esterase (Negative) Urine WBC (Auto) (0-5) /hpf Urine RBC (Auto) (0-4) /hpf U Hyaline Cast (Auto) (0-5) /lpf U Epithel Cells (Auto) (0-5) /lpf Urine Bacteria (Auto) (Negative) Urine Crystals Calcium Oxalate Crystal (None Prsent) Amorphous Sediment (None Prsent) Nasal Screen MRSA (PCR) (Negative) Salicylates 2.7 L (2.8-20) mg/dl Urine Opiates Screen (Neg) U Codeine Confrm GC/MS Ur Morphine (GC/MS) Ur Hydrocodone (GC/MS) Ur Norhydrocodone Ur Noroxycodone Urine Oxycodone (GC/MS) U Oxymorphone GC/MS Ur Methadone, Qual (Neg) Ur Hydromorphone (GC/MS) Acetaminophen < 2 L (10-30) ug/ml Urine Barbiturates (Neg) Ur Phencyclidine (PCP) (Neg) U Amphetamin/Meth Scrn (Neg) MDMA (Ecstasy) Screen (Neg) U Benzodiazepines Scrn (Neg) Ur Cocaine Metabolite (Neg) U Marijuana (THC) Screen (Neg) Ethyl Alcohol mg/dL < 3.0 (0-3) mg/dl Hep Bs Antigen (Neg) Hep Bs Antibody Hep Bs Antibody, Quant (>or=10mIU/mL Immune) mIU/mL Hepatitis C Ab Screen (Neg) 05/05/19 05/05/19 05/05/19 Range/Units 12:48 12:48 12:48 WBC (4.8-10.8) K/uL RBC (4.7-6.1) M/uL Hgb (14.0-18.0) g/dL Hct (42-52) % MCV (80-100) fL MCH (25-34) pg MCHC (32-36) g/dL RDW Std Deviation (36.4-46.3) fL RDW Coeff of Katherine (11.5-14.5) % Plt Count (130-400) K/uL MPV (7.4-10.4) fL Immature Gran % (Auto) % Neut % (Auto) % Lymph % (Auto) % Stan[place] % (Auto) % Eos % (Auto) % Baso % (Auto) % Immature Gran # (Auto) (0.00-0.02) K/uL Neut # (Auto) (1.4-6.5) K/uL Lymph # (Auto) (1.2-3.4) K/uL Stanly # (Auto) (0.11-0.59) K/uL Eos # (Auto) (0-0.5) K/uL Baso # (Auto) (0-0.2) K/uL ESR 83 H (0-14) mm/hr PT 10.8 (9.0-12.0) Seconds INR 1.1 (0.9-1.1) APTT 34.5 H (21.0-31.0) Seconds PTT Ratio 1.3 Sample Site POC pH (7.35-7.45) POC pCO2 (35-46) mmHg POC pO2 (80-95) mmHg POC HCO3 (19-24) susanna/L POC Total CO2 (24-31) mEq/l POC Base Excess (-9-1.8) susanna/L POC ABG O2 Sat (90-95) % Kunal Test VBG pH (7.36-7.41) VBG pCO2 (38-50) mmHg VBG pO2 mmHg VBG HCO3 mmol/L VBG O2 Saturation % VBG Base Excess mEq/L Barometric Pressure mm/Hg O2 Delivery Device POC O2 Rate POC FiO2 % IPAP Sodium 126 L (136-145) mmol/L Potassium 6.5 H* (3.5-5.1) mmol/L Chloride 90 L (98-107) mmol/L Carbon Dioxide 11 L (21-32) mmol/L Anion Gap 26.0 H (3-11) BUN 105 H (7-18) mg/dl Creatinine 13.40 H* (0.6-1.4) mg/dl Est Cr Clr Drug Dosing 7.3 ml/min Est GFR ( Amer) 4.3 Est GFR (Non-Af Amer) 3.7 BUN/Creatinine Ratio 7.8 L (10-20) Glucose 152 H (70-99) mg/dl POC Glucose (70-99) Estimat Average Glucose mg/dl Hemoglobin A1c (4.5-5.6) % Osmolality (280-300) mOsm/kg Lactate (0.4-2.0) mmol/L Calcium 5.4 L* (8.5-10.1) mg/dl Ionized Calcium Phosphorus (2.5-4.9) mg/dl Magnesium 3.0 H (1.8-2.4) mg/dl Total Bilirubin 0.9 (0.2-1) mg/dl AST 262 H (15-37) U/L ALT 118 H (12-78) U/L Alkaline Phosphatase 94 (45-117) U/L Total Creatine Kinase (39-308) U/L CK-MB (CK-2) 91.1 H (0.5-3.6) ng/ml Troponin I < 0.015 (0-0.045) ng/ml C-Reactive Protein 9.37 H (0-0.29) mg/dl Total Protein 8.7 H (6.4-8.2) gm/dl Albumin 3.6 (3.4-5.0) gm/dl Globulin 5.1 H (2.5-4.0) gm/dl Albumin/Globulin Ratio 0.7 L (0.9-2) Procalcitonin (0-0.5) ng/ml TSH (0.300-4.500) uIu/ml Urine Color Urine Appearance (Clear) Urine pH (4.5-7.5) Ur Specific Ovid (1.000-1.030) Urine Protein (Negative) Urine Glucose (UA) (Negative) Urine Ketones (Negative) Urine Blood (Negative) Urine Nitrite (Negative) Urine Bilirubin (Negative) Urine Urobilinogen (Negative) Ur Leukocyte Esterase (Negative) Urine WBC (Auto) (0-5) /hpf Urine RBC (Auto) (0-4) /hpf U Hyaline Cast (Auto) (0-5) /lpf U Epithel Cells (Auto) (0-5) /lpf Urine Bacteria (Auto) (Negative) Urine Crystals Calcium Oxalate Crystal (None Prsent) Amorphous Sediment (None Prsent) Nasal Screen MRSA (PCR) (Negative) Salicylates (2.8-20) mg/dl Urine Opiates Screen (Neg) U Codeine Confrm GC/MS Ur Morphine (GC/MS) Ur Hydrocodone (GC/MS) Ur Norhydrocodone Ur Noroxycodone Urine Oxycodone (GC/MS) U Oxymorphone GC/MS Ur Methadone, Qual (Neg) Ur Hydromorphone (GC/MS) Acetaminophen (10-30) ug/ml Urine Barbiturates (Neg) Ur Phencyclidine (PCP) (Neg) U Amphetamin/Meth Scrn (Neg) MDMA (Ecstasy) Screen (Neg) U Benzodiazepines Scrn (Neg) Ur Cocaine Metabolite (Neg) U Marijuana (THC) Screen (Neg) Ethyl Alcohol mg/dL (0-3) mg/dl Hep Bs Antigen (Neg) Hep Bs Antibody Hep Bs Antibody, Quant (>or=10mIU/mL Immune) mIU/mL Hepatitis C Ab Screen (Neg) 05/05/19 05/05/19 05/05/19 Range/Units 12:48 12:48 12:21 WBC 11.72 H (4.8-10.8) K/uL RBC 3.72 L (4.7-6.1) M/uL Hgb 12.0 L (14.0-18.0) g/dL Hct 34.3 L (42-52) % MCV 92.2 (80-100) fL MCH 32.3 (25-34) pg MCHC 35.0 (32-36) g/dL RDW Std Deviation 49.9 H (36.4-46.3) fL RDW Coeff of Katherien 14.7 H (11.5-14.5) % Plt Count 134 (130-400) K/uL MPV 9.2 (7.4-10.4) fL Immature Gran % (Auto) 0.5 % Neut % (Auto) 68.5 % Lymph % (Auto) 21.3 % Stanly % (Auto) 8.6 % Eos % (Auto) 0.8 % Baso % (Auto) 0.3 % Immature Gran # (Auto) 0.06 H (0.00-0.02) K/uL Neut # (Auto) 8.03 H (1.4-6.5) K/uL Lymph # (Auto) 2.50 (1.2-3.4) K/uL Stanly # (Auto) 1.01 H (0.11-0.59) K/uL Eos # (Auto) 0.09 (0-0.5) K/uL Baso # (Auto) 0.03 (0-0.2) K/uL ESR (0-14) mm/hr PT (9.0-12.0) Seconds INR (0.9-1.1) APTT (21.0-31.0) Seconds PTT Ratio Sample Site POC pH (7.35-7.45) POC pCO2 (35-46) mmHg POC pO2 (80-95) mmHg POC HCO3 (19-24) susanna/L POC Total CO2 (24-31) mEq/l POC Base Excess (-9-1.8) susanna/L POC ABG O2 Sat (90-95) % Kunal Test VBG pH (7.36-7.41) VBG pCO2 (38-50) mmHg VBG pO2 mmHg VBG HCO3 mmol/L VBG O2 Saturation % VBG Base Excess mEq/L Barometric Pressure mm/Hg O2 Delivery Device POC O2 Rate POC FiO2 % IPAP Sodium (136-145) mmol/L Potassium (3.5-5.1) mmol/L Chloride (98-107) mmol/L Carbon Dioxide (21-32) mmol/L Anion Gap (3-11) BUN (7-18) mg/dl Creatinine (0.6-1.4) mg/dl Est Cr Clr Drug Dosing ml/min Est GFR ( Amer) Est GFR (Non-Af Amer) BUN/Creatinine Ratio (10-20) Glucose (70-99) mg/dl POC Glucose 160 H (70-99) Estimat Average Glucose mg/dl Hemoglobin A1c (4.5-5.6) % Osmolality (280-300) mOsm/kg Lactate (0.4-2.0) mmol/L Calcium (8.5-10.1) mg/dl Ionized Calcium Phosphorus (2.5-4.9) mg/dl Magnesium (1.8-2.4) mg/dl Total Bilirubin (0.2-1) mg/dl AST (15-37) U/L ALT (12-78) U/L Alkaline Phosphatase (45-117) U/L Total Creatine Kinase (39-308) U/L CK-MB (CK-2) (0.5-3.6) ng/ml Troponin I (0-0.045) ng/ml C-Reactive Protein (0-0.29) mg/dl Total Protein (6.4-8.2) gm/dl Albumin (3.4-5.0) gm/dl Globulin (2.5-4.0) gm/dl Albumin/Globulin Ratio (0.9-2) Procalcitonin 7.02 H (0-0.5) ng/ml TSH (0.300-4.500) uIu/ml Urine Color Urine Appearance (Clear) Urine pH (4.5-7.5) Ur Specific Ovid (1.000-1.030) Urine Protein (Negative) Urine Glucose (UA) (Negative) Urine Ketones (Negative) Urine Blood (Negative) Urine Nitrite (Negative) Urine Bilirubin (Negative) Urine Urobilinogen (Negative) Ur Leukocyte Esterase (Negative) Urine WBC (Auto) (0-5) /hpf Urine RBC (Auto) (0-4) /hpf U Hyaline Cast (Auto) (0-5) /lpf U Epithel Cells (Auto) (0-5) /lpf Urine Bacteria (Auto) (Negative) Urine Crystals Calcium Oxalate Crystal (None Prsent) Amorphous Sediment (None Prsent) Nasal Screen MRSA (PCR) (Negative) Salicylates (2.8-20) mg/dl Urine Opiates Screen (Neg) U Codeine Confrm GC/MS Ur Morphine (GC/MS) Ur Hydrocodone (GC/MS) Ur Norhydrocodone Ur Noroxycodone Urine Oxycodone (GC/MS) U Oxymorphone GC/MS Ur Methadone, Qual (Neg) Ur Hydromorphone (GC/MS) Acetaminophen (10-30) ug/ml Urine Barbiturates (Neg) Ur Phencyclidine (PCP) (Neg) U Amphetamin/Meth Scrn (Neg) MDMA (Ecstasy) Screen (Neg) U Benzodiazepines Scrn (Neg) Ur Cocaine Metabolite (Neg) U Marijuana (THC) Screen (Neg) Ethyl Alcohol mg/dL (0-3) mg/dl Hep Bs Antigen (Neg) Hep Bs Antibody Hep Bs Antibody, Quant (>or=10mIU/mL Immune) mIU/mL Hepatitis C Ab Screen (Neg) Medications Administered Home Medications Medication Instructions Recorded Confirmed Last Taken albuterol sulfate [Ventolin HFA] 2 puff INHALATION QID PRN 05/05/19 05/05/19 Unknown amlodipine 10 mg PO DAILY 05/05/19 05/05/19 Unknown aspirin [Aspir-81] 81 mg PO DAILY 05/05/19 05/05/19 Unknown atorvastatin 40 mg PO HS 05/05/19 05/05/19 Unknown coenzyme Q10 200 mg PO DAILY 05/05/19 05/05/19 Unknown duloxetine 60 mg PO DAILY 05/05/19 05/05/19 Unknown empagliflozin 10 mg PO DAILY 05/05/19 05/05/19 Unknown fentanyl 1 patch TRANSDERMAL Q72H 05/05/19 05/05/19 05/03/19 folic acid 1 mg PO DAILY 05/05/19 05/05/19 Unknown gabapentin 600 mg PO TID 05/05/19 05/05/19 Unknown lisinopril 40 mg PO DAILY 05/05/19 05/05/19 Unknown multivitamin with minerals 1 tab PO DAILY 05/05/19 05/05/19 Unknown [Multiple Vitamin-Minerals] oxycodone-acetaminophen 1 tab PO Q8H PRN 05/05/19 05/05/19 Unknown oxymetazoline 1 spray INTRANASAL HS PRN 05/05/19 05/05/19 Unknown sitagliptin-metformin 1 tab PO BID 05/05/19 05/05/19 Unknown Active Medications Generic Name Dose Route Start Last Admin Trade Name Freq PRN Reason Stop Dose Admin Fentanyl 25 mcg 05/06/19 09:00 05/06/19 09:15 Duragesic TD 05/20/19 08:59 25 mcg Q72H [facility]AL Administration Sodium Bicarbonate 150 meq/ 1,150 mls @ 125 mls/hr 05/05/19 15:00 05/06/19 08:30 Dextrose IV 06/04/19 14:59 125 mls/hr .[id number] OPAL Infusion Folic Acid 1 mg/ Syringe 10 mls @ 5 mls/min 05/05/19 15:42 05/06/19 09:19 IV 06/04/19 15:41 5 mls/min DAILY@0900 OPAL Administration Thiamine HCl 100 mg/ Syringe 10 mls @ 2 mls/hr 05/05/19 15:42 05/06/19 09:19 IV 06/04/19 15:41 2 mls/hr DAILY@0900 OPAL Administration Piperacillin Sod/Tazobactam 115 mls @ 28.75 mls/hr 05/05/19 22:00 05/06/19 09:32 Sod 3.375 gm/ Dextrose IV 05/07/19 21:59 28.8 mls/hr Q12H [facility]AL Administration Protocol Insulin Aspart 0 units 05/05/19 18:00 05/06/19 06:04 Novolog Flexpen CO 06/04/19 17:59 1 units Q6 [facility] Administration Protocol Insulin Glargine 10 units 05/06/19 08:00 05/06/19 09:18 Lantus Solostar Pen CO 06/05/19 07:59 10 units TODAY@0800 [facility] Administration Miscellaneous 1 ea 05/06/19 08:59 05/06/19 08:51 Fentanyl Patch Remove & Waste N/A 06/05/19 08:58 Not Given Q72H [facility] Critical Care Time Critical Care Time: Yes Total Critical Care Time: 35 (1) Acute kidney failure Acute renal failure type: unspecified Qualified Code(s): N17.9 - Acute kidney failure, unspecified (2) Rhabdomyolysis Encounter type: initial encounter Rhabdomyolysis type: traumatic Qualified Code(s): T79.6XXA - Traumatic ischemia of muscle, initial encounter
[2019-05-06] MEDS ORDERED: SODIUM BICARBONATE 8.4% 75 MEQ in D5W AND 1/2NSS 1,000 ML IV SCH (11:00)
--- NOTE | 2019-05-06 12:36 | Progress Note ---
Date of Service May 06, 2019 Assessment & Plan (1) Cholecystitis, chronic: The patient does have some gallbladder distention and gallstones on his ultrasound. He does not have any pericholecystic fluid it is more likely he has chronic changes. He does not appear to require surgical intervention at this time and we will continue to follow him. Subjective Patient appears to have improved overnight He is currently much more awake and responsive and appropriate Physical Exam Physical Exam: He is currently breathing much better His urine output is very good and clear. His abdomen is protuberant and he does have some nonspecific discomfort to palpation however it does not seem to be related to the right upper quadrant and gallbladder specifically Results & Data Vital Signs (Past 12 Hours) Vital Signs Temp Pulse BP Pulse Ox 05/06/19 10:01 100 H 124/72 93 05/06/19 09:01 102 H 122/72 92 05/06/19 08:01 36.9 C 99 H 146/76 H 94 05/06/19 08:00 94 H 05/06/19 07:31 92 H 129/60 95 05/06/19 07:01 97 H 130/66 95 05/06/19 06:01 94 H 129/68 95 05/06/19 06:00 94 H 95 05/06/19 05:31 96 H 122/62 95 05/06/19 05:01 96 H 115/60 94 05/06/19 05:00 95 H 94 05/06/19 04:32 92 H 94 05/06/19 04:31 91 H 106/57 L 94 05/06/19 04:30 93 H 94 05/06/19 04:01 94 H 88/55 L 94 05/06/19 04:00 94 H 94 05/06/19 03:31 37.3 C 100 H 111/67 95 05/06/19 03:30 100 H 95 05/06/19 03:15 91 H 96 05/06/19 03:01 37.2 C 93 H 114/62 95 05/06/19 02:31 93 H 87/62 L 95 05/06/19 02:01 93 H 126/61 95 05/06/19 01:31 91 H 116/59 L 95 05/06/19 01:01 88 100/52 L 95 I did review his ultrasound
[2019-05-06 13:45] LABS: BUN Creatinine Ratio 23.2 (10-20); Calcium 7.4 mg/dl (8.5-10.1); Creatinine Clr Calc Pharmacy 32.9 ml/min; Est GFR (African American) 26.2; Est GFR (Non-African American) 22.6; Potassium 3.9 mmol/L (3.5-5.1)
[2019-05-06] MEDS ORDERED: ASPIRIN 300 MG SUPP PR SCH (14:00)
[2019-05-06] MEDS ORDERED: BISACODYL 10 MG SUPP PR PRN (14:29)
[2019-05-06] MEDS: HEPARIN SOD 5,000 UNIT/0.5 ML VIAL SQ SCH ×2 (14:50→22:32)
--- NOTE | 2019-05-06 14:50 | Pharmacy Report ---
Glycemic Control Consultation - Date of Service May 06, 2019 - Scope Scope: Glycemic Pharmacist consulted by Hernan BEDOYA on 05/05 for glycemic control and to write orders per [facility] inpatient glycemic control protocol - Objective Weight: 103 kg Accuchecks BSG (last 24hrs): 05/05/19 05/05/19 05/06/19 16:42 20:01 00:22 Glucose 125 H 183 H POC Glucose 186 H 05/06/19 05/06/19 05/06/19 01:06 04:42 05:59 Glucose 201 H 198 H POC Glucose 203 H 05/06/19 05/06/19 05/06/19 08:57 11:46 12:53 Glucose 217 H 198 H POC Glucose 219 H Laboratory Data (last 24hrs): 05/05/19 05/05/19 05/05/19 16:42 19:55 20:01 Potassium 6.7 H* 5.7 H Carbon Dioxide 12 L 15 L Anion Gap 22.0 H 17.0 H Creatinine 12.80 H* D 11.80 H* D Est Cr Clr Drug Dosing 7.7 8.4 Osmolality 312 H 05/06/19 05/06/19 05/06/19 01:06 04:42 08:57 Potassium 4.1 D 4.0 4.1 Carbon Dioxide 22 24 29 Anion Gap 14.0 H 12.0 H 11.0 Creatinine 8.64 H* D 6.71 H* D 4.32 H D Est Cr Clr Drug Dosing 11.4 14.7 22.7 Osmolality 05/06/19 12:53 Potassium 3.9 Carbon Dioxide 31 Anion Gap 9.0 Creatinine 2.99 H D Est Cr Clr Drug Dosing 32.9 Osmolality HbA1c: Hemoglobin A1c 8.2 % (4.5-5.6) H 05/06/19 04:42 - Recent Pertinent Medications Outpatient Anti-diabetic Regimen: * Jardiance 10 mg daily (new within past month); Janumet 50/500 BID * A1c = 8.2 % 05/06/19 Risk Factors for Insulin Resistance: * Infection: zosyn- empiric * IVF: d5+1/2NS + 75 meq bicarb * Diet: NPO --> ?clears - Assessment & Plan Assessment & Plan: ASSESSMENT: * 54 year old male with PMH including HTN, COPD, chronic pain, OLEKSANDR, and T2DM, alcohol abuse presented iwth increased lethargy and altered mental status * SCr significatnly elevated and underwent emergent dialysis, started on bicarb drip, decreased to 1/2NS +D5 + 75 meq Bicarb @150 today. * No plans for HD today, Scr improved to 2.99, Calcium improving with replacement * BSGs 150s on admission, elevated this morning into the 200s. Patient was NPO but receiving dextrose in fluids. Discussed starting insulin infusion (as 2 consecutive BSGs above 200) vs. basal/bolus management with care team, will utilize basal/bolus at this time. Started lantus conservatively at this time/ uncertain oral intake as patient begins to take clears/turning off bicarb drip. Tightened correction parameters to stress of 3- may need to back off if bicarb drip discontinued/patient begins to eat * A1c outpatient 8.2% above goal, additional medication jardiance added per notes within last month PLAN FOR INPATIENT GLYCEMIC CONTROL: * Holding outpatient oral diabetes medications * Basal insulin * Lantus 10 units x1, scale for dinner * 10 units if BSG <180 * 18 units if BSG 180 or greater * Bolus insulin * NovoLog per scale ACHS or Q6hrs while NPO * Goal Range: Low 140 mg/dL - High 180mg/dL * Correction Factor: 15 mg/dL/unit * Nutritional / Prandial insulin per carb ratio of 1 unit per 10 grams CHO consumed * Please note that the plan above was derived based on current level of insulin resistance and hospital stress. These recommendations are appropriate for [facility] admission only. Plan of care upon discharge will need to be reassessed to avoid potential outpatient hypo/hyperglycemia. Thank you.
[2019-05-06] MEDS: CHECK FENTANYL PATCH PLACEMENT SCH ×2 (16:14→23:47)
[2019-05-06 17:34] LABS: Calcium 7.5 mg/dl (8.5-10.1); Creatinine Clr Calc Pharmacy 46.8 ml/min; Est GFR (African American) 40.1; Est GFR (Non-African American) 34.6; Potassium 4.1 mmol/L (3.5-5.1)
[2019-05-06] MEDS ORDERED: NORMOSOL-R 1,000 ML IV SCH (17:45)
[2019-05-06] MEDS ORDERED: INSULIN GLARGINE SOLOSTAR 100 UNITS/ML 3 ML PEN SC ONE ×2 (18:00→20:00)
[2019-05-06] MEDS ORDERED: Nursing to Pharmacy Communication ONE (18:32)
[2019-05-07] MEDS: INSULIN ASPART 100 UNITS/ML 3 ML PEN SC SCH ×5 (03:48→21:05)
[2019-05-07] MEDS: HEPARIN SOD 5,000 UNIT/0.5 ML VIAL SQ SCH ×3 (06:22→21:06)
--- NOTE | 2019-05-07 06:40 | Progress Note ---
Date of Service May 07, 2019 Assessment & Plan (1) Cholecystitis, chronic: Doubt acute cholecystitis- has chronic chgs- no plan for surgical intervention now or near future diet as tolerated Subjective awake, alert ++ flatus, bm- no specific RUQ abd pain Physical Exam Physical Exam: abd soft- some diffuse pain- ? secondary to rhabdo ? Results & Data Vital Signs (Past 12 Hours) Vital Signs Temp Pulse BP Pulse Ox 05/07/19 05:01 85 118/71 100 05/07/19 04:01 79 126/80 99 05/07/19 03:01 89 130/81 100 05/07/19 02:01 85 174/72 H 100 05/07/19 01:01 98 H 152/82 H 100 05/07/19 00:01 36.9 C 91 H 120/79 97 05/06/19 23:01 86 155/77 H 99 05/06/19 22:01 92 H 128/71 98 05/06/19 21:01 89 135/70 98 05/06/19 20:01 37.0 C 94 H 114/84 98 05/06/19 19:23 93 H 05/06/19 19:01 96 H 149/95 H 98
[2019-05-07 08:13] LABS: Hematocrit (blood only) 34.2 % (42-52); Hemoglobin 11.6 g/dL (14.0-18.0); Mean Corpuscular Hgb Conc 33.9 g/dL (32-36); Mean Corpuscular Volume 93.2 fL (80-100); Mean Platelet Volume 9.7 fL (7.4-10.4); Platelet Count 124 K/uL (130-400); RDW Coefficient of Variation 14.3 % (11.5-14.5); RDW Standard Deviation 48.3 fL (36.4-46.3); Red Blood Count 3.67 M/uL (4.7-6.1)
[2019-05-07 08:20] LABS: BUN Creatinine Ratio 32.4 (10-20); Calcium 7.5 mg/dl (8.5-10.1); Creatinine Clr Calc Pharmacy 81.6 ml/min; Est GFR (African American) 80.6; Est GFR (Non-African American) 69.5; Potassium 4.1 mmol/L (3.5-5.1)
[2019-05-07] MEDS: THIAMINE HCL 100 MG in SYRINGE 9 ML IV SCH (08:47)
[2019-05-07] MEDS: PIPERACILLIN/TAZOBACTAM 3.375 GM in DEXTROSE 5% 100 ML IV SCH (08:47)
[2019-05-07] MEDS: FOLIC ACID 1 MG in SYRINGE 9.8 ML IV SCH (08:47)
[2019-05-07] MEDS: CHECK FENTANYL PATCH PLACEMENT SCH ×2 (08:49→15:57)
[2019-05-07] MEDS ORDERED: INSULIN GLARGINE SOLOSTAR 100 UNITS/ML 3 ML PEN SC SCH ×2 (09:00→21:00)
--- NOTE | 2019-05-07 09:10 | Nephrology Progress Note ---
Date of Service May 07, 2019 Assessment & Plan (1) Acute kidney failure: on presentation w/ severe prerenal oliguric acute renal failure with baseline creatinine early february 0.9; also had hyperkalemia w/ ECG changes, severe acidemia, hypocalcemia, nontraumatic Rhabdo. no HD done though strongly considered initially. presented w/ creatinine 13.4 on 05/05. improved to 6.7 by next am; not oliguric now; creatinine today 1.2, which still meets LUISITO criteria for him. urine sediment contracted/traumatic; not c/w infection. not particularly consistent with vasculitis or glomerulonephritis. no ketonuria/ some glucosuria c/w DM medications. not overloaded on exam and if anything looks dehydrated; not severely anemic -stopped normosol -daily bmp at this point -no evidence of EtOH w/drawal despite daily heavy use prior to admission D/C RECOMMENDATIONS -given severity of renal failure recommend monthly bmp x 3 at d/c and next available f/u appt in CKD clinic [place] any provider -would NOT resume lisinopril immediately at d/c and when appropriate would resume amlodipine at 5 mg daily not 10 mg daily <<>>his bp is controlled and would not give any antihypertensives currently Will SIGN off; pls call if ?; care coordinated w/ Dr Matthews Subjective no c/o dyspnea, musculoskeletal pain or abd pain. does note but not bothered by slight wheeze and abd distension/ready to have bm. denies WYNN or anxiety Review of Systems Review of Systems: All systems reviewed & are unremarkable except as noted in HPI & below Physical Exam Constitutional: well developed, well nourished and + obese A& o x 3 but odd affect Eyes: EOM intact bilaterally ENMT: Ears: no external ear abnormality Nose: no external nose abnormality Mouth: + dry oral mucous membranes Neck: + thick neck; no nuchal rigidity Respiratory: + prolonged expiratory phase Auscultation: + diminished lung sounds and + wheezes Cardiovascular: Rate/Rhythm: regular rhythm and + tachycardic Heart Sounds: normal S1, normal S2 and + murmur Extremities: no edema Gastrointestinal (Abdomen): Inspection/Auscultation: + abdomen distended and normal bowel sounds Percussion/Palpation: abdomen soft; abdomen nontender and no ascites Skin: no rashes, warm and dry no jaundice Neurologic: sabillon , fluent speech Psychiatric: Orientation: alert, oriented to person, oriented to place and cooperative Eye Contact: + fair eye contact laughs inappropriately at times/ affect odd Results & Data Vital Signs (Past 12 Hours) Vital Signs Temp Pulse BP Pulse Ox 05/07/19 05:01 85 118/71 100 05/07/19 04:01 79 126/80 99 05/07/19 03:01 89 130/81 100 05/07/19 02:01 85 174/72 H 100 05/07/19 01:01 98 H 152/82 H 100 05/07/19 00:01 36.9 C 91 H 120/79 97 05/06/19 23:01 86 155/77 H 99 05/06/19 22:01 92 H 128/71 98 Laboratory Results Abnormal lab results 05/06/19 05/06/19 05/06/19 Range/Units 08:57 09:01 11:46 RBC (4.7-6.1) M/uL Hgb (14.0-18.0) g/dL Hct (42-52) % RDW Std Deviation (36.4-46.3) fL Plt Count (130-400) K/uL VBG pH 7.46 H (7.36-7.41) Carbon Dioxide (21-32) mmol/L BUN 77 H (7-18) mg/dl Creatinine 4.32 H D (0.6-1.4) mg/dl BUN/Creatinine Ratio (10-20) Glucose 217 H (70-99) mg/dl POC Glucose 219 H (70-99) Calcium 6.6 L D (8.5-10.1) mg/dl Total Creatine Kinase (39-308) U/L 05/06/19 05/06/19 05/06/19 Range/Units 12:53 12:53 16:13 RBC (4.7-6.1) M/uL Hgb (14.0-18.0) g/dL Hct (42-52) % RDW Std Deviation (36.4-46.3) fL Plt Count (130-400) K/uL VBG pH 7.47 H (7.36-7.41) Carbon Dioxide (21-32) mmol/L BUN 69 H (7-18) mg/dl Creatinine 2.99 H D (0.6-1.4) mg/dl BUN/Creatinine Ratio 23.2 H (10-20) Glucose 198 H (70-99) mg/dl POC Glucose 200 H (70-99) Calcium 7.4 L (8.5-10.1) mg/dl Total Creatine Kinase (39-308) U/L 05/06/19 05/06/19 05/06/19 Range/Units 17:05 17:05 20:16 RBC (4.7-6.1) M/uL Hgb (14.0-18.0) g/dL Hct (42-52) % RDW Std Deviation (36.4-46.3) fL Plt Count (130-400) K/uL VBG pH 7.49 H (7.36-7.41) Carbon Dioxide (21-32) mmol/L BUN 57 H (7-18) mg/dl Creatinine 2.10 H D (0.6-1.4) mg/dl BUN/Creatinine Ratio 27.0 H (10-20) Glucose 184 H (70-99) mg/dl POC Glucose 144 H (70-99) Calcium 7.5 L (8.5-10.1) mg/dl Total Creatine Kinase (39-308) U/L 05/06/19 05/07/19 05/07/19 Range/Units 23:39 03:46 04:25 RBC (4.7-6.1) M/uL Hgb (14.0-18.0) g/dL Hct (42-52) % RDW Std Deviation (36.4-46.3) fL Plt Count (130-400) K/uL VBG pH (7.36-7.41) Carbon Dioxide (21-32) mmol/L BUN (7-18) mg/dl Creatinine (0.6-1.4) mg/dl BUN/Creatinine Ratio (10-20) Glucose (70-99) mg/dl POC Glucose 134 H 132 H (70-99) Calcium (8.5-10.1) mg/dl Total Creatine Kinase 1820 H (39-308) U/L 05/07/19 05/07/19 05/07/19 Range/Units 04:29 04:29 08:41 RBC 3.67 L (4.7-6.1) M/uL Hgb 11.6 L (14.0-18.0) g/dL Hct 34.2 L (42-52) % RDW Std Deviation 48.3 H (36.4-46.3) fL Plt Count 124 L (130-400) K/uL VBG pH (7.36-7.41) Carbon Dioxide 33 H (21-32) mmol/L BUN 38 H (7-18) mg/dl Creatinine (0.6-1.4) mg/dl BUN/Creatinine Ratio 32.4 H (10-20) Glucose 136 H (70-99) mg/dl POC Glucose 156 H (70-99) Calcium 7.5 L (8.5-10.1) mg/dl Total Creatine Kinase (39-308) U/L (1) Acute kidney failure Acute renal failure type: unspecified Qualified Code(s): N17.9 - Acute kidney failure, unspecified
--- NOTE | 2019-05-07 09:22 | Critical Care Progress Note ---
Date of Service May 07, 2019 Assessment & Plan (1) Acute kidney failure: Marked improvement in the 48 hours since admission, no need for dialysis Management per nephrology; IV fluids changed to half-normal saline with 1 amp of bicarb Replete electrolytes as needed. Patient stable for transfer from ICU (2) Rhabdomyolysis: CPK decreasing, continue bicarb drip and monitor CK (3) Cirrhosis of liver: Avoid hepatotoxins, will need counseling on abstinence from alcohol (4) Hypersomnia with sleep apnea: He was not using CPAP at home, will continue CPAP in hospital whenever he is asleep. Would recommend outpatient sleep study Subjective , Tolerating p.o., already asking when he can go home, offers no complaints awake, alert ++ flatus, bm- no specific RUQ abd pain Review of Systems Review of Systems: All systems reviewed & are unremarkable except as noted in HPI & below Physical Exam Constitutional: WD/WN, vitals as above Eyes: PERRL, conjunctivae normal, anicteric sclerae Neck: trachea midline, no thyromegaly Respiratory: Auscultation: lungs clear to auscultation bilaterally Cardiovascular: RRR, no murmur, no edema Gastrointestinal (Abdomen): normal bowel sounds, soft, nontender, no hepatosplenomegaly Musculoskeletal: Warm well perfused no cyanosis clubbing or edema Skin: No rash petechia or purpura Neurologic: Alert oriented no focality present Genitourinary: Fitzgerald in place urine clear Results & Data Vital Signs (Past 12 Hours) Vital Signs Temp Pulse BP Pulse Ox 05/07/19 05:01 85 118/71 100 05/07/19 04:01 79 126/80 99 05/07/19 03:01 89 130/81 100 05/07/19 02:01 85 174/72 H 100 05/07/19 01:01 98 H 152/82 H 100 05/07/19 00:01 36.9 C 91 H 120/79 97 05/06/19 23:01 86 155/77 H 99 05/06/19 22:01 92 H 128/71 98 Laboratory Results 05/07/19 05/07/19 05/07/19 Range/Units 08:41 04:29 04:29 WBC 6.80 (4.8-10.8) K/uL RBC 3.67 L (4.7-6.1) M/uL Hgb 11.6 L (14.0-18.0) g/dL Hct 34.2 L (42-52) % MCV 93.2 (80-100) fL MCH 31.6 (25-34) pg MCHC 33.9 (32-36) g/dL RDW Std Deviation 48.3 H (36.4-46.3) fL RDW Coeff of Katherine 14.3 (11.5-14.5) % Plt Count 124 L (130-400) K/uL MPV 9.7 (7.4-10.4) fL VBG pH (7.36-7.41) Sodium 141 (136-145) mmol/L Potassium 4.1 (3.5-5.1) mmol/L Chloride 102 (98-107) mmol/L Carbon Dioxide 33 H (21-32) mmol/L Anion Gap 6.0 (3-11) BUN 38 H (7-18) mg/dl Creatinine 1.18 D (0.6-1.4) mg/dl Est Cr Clr Drug Dosing 81.6 ml/min Est GFR ( Amer) 80.6 Est GFR (Non-Af Amer) 69.5 BUN/Creatinine Ratio 32.4 H (10-20) Glucose 136 H (70-99) mg/dl POC Glucose 156 H (70-99) Calcium 7.5 L (8.5-10.1) mg/dl Phosphorus (2.5-4.9) mg/dl Total Creatine Kinase (39-308) U/L 05/07/19 05/07/19 05/06/19 Range/Units 04:25 03:46 23:39 WBC (4.8-10.8) K/uL RBC (4.7-6.1) M/uL Hgb (14.0-18.0) g/dL Hct (42-52) % MCV (80-100) fL MCH (25-34) pg MCHC (32-36) g/dL RDW Std Deviation (36.4-46.3) fL RDW Coeff of Katherine (11.5-14.5) % Plt Count (130-400) K/uL MPV (7.4-10.4) fL VBG pH (7.36-7.41) Sodium (136-145) mmol/L Potassium (3.5-5.1) mmol/L Chloride (98-107) mmol/L Carbon Dioxide (21-32) mmol/L Anion Gap (3-11) BUN (7-18) mg/dl Creatinine (0.6-1.4) mg/dl Est Cr Clr Drug Dosing ml/min Est GFR ( Amer) Est GFR (Non-Af Amer) BUN/Creatinine Ratio (10-20) Glucose (70-99) mg/dl POC Glucose 132 H 134 H (70-99) Calcium (8.5-10.1) mg/dl Phosphorus (2.5-4.9) mg/dl Total Creatine Kinase 1820 H (39-308) U/L 05/06/19 05/06/19 05/06/19 Range/Units 20:16 17:05 17:05 WBC (4.8-10.8) K/uL RBC (4.7-6.1) M/uL Hgb (14.0-18.0) g/dL Hct (42-52) % MCV (80-100) fL MCH (25-34) pg MCHC (32-36) g/dL RDW Std Deviation (36.4-46.3) fL RDW Coeff of Katherine (11.5-14.5) % Plt Count (130-400) K/uL MPV (7.4-10.4) fL VBG pH 7.49 H (7.36-7.41) Sodium 141 (136-145) mmol/L Potassium 4.1 (3.5-5.1) mmol/L Chloride 102 (98-107) mmol/L Carbon Dioxide 32 (21-32) mmol/L Anion Gap 7.0 (3-11) BUN 57 H (7-18) mg/dl Creatinine 2.10 H D (0.6-1.4) mg/dl Est Cr Clr Drug Dosing 46.8 ml/min Est GFR ( Amer) 40.1 Est GFR (Non-Af Amer) 34.6 BUN/Creatinine Ratio 27.0 H (10-20) Glucose 184 H (70-99) mg/dl POC Glucose 144 H (70-99) Calcium 7.5 L (8.5-10.1) mg/dl Phosphorus (2.5-4.9) mg/dl Total Creatine Kinase (39-308) U/L 05/06/19 05/06/19 05/06/19 Range/Units 16:13 12:53 12:53 WBC (4.8-10.8) K/uL RBC (4.7-6.1) M/uL Hgb (14.0-18.0) g/dL Hct (42-52) % MCV (80-100) fL MCH (25-34) pg MCHC (32-36) g/dL RDW Std Deviation (36.4-46.3) fL RDW Coeff of Katherine (11.5-14.5) % Plt Count (130-400) K/uL MPV (7.4-10.4) fL VBG pH 7.47 H (7.36-7.41) Sodium 141 (136-145) mmol/L Potassium 3.9 (3.5-5.1) mmol/L Chloride 101 (98-107) mmol/L Carbon Dioxide 31 (21-32) mmol/L Anion Gap 9.0 (3-11) BUN 69 H (7-18) mg/dl Creatinine 2.99 H D (0.6-1.4) mg/dl Est Cr Clr Drug Dosing 32.9 ml/min Est GFR ( Amer) 26.2 Est GFR (Non-Af Amer) 22.6 BUN/Creatinine Ratio 23.2 H (10-20) Glucose 198 H (70-99) mg/dl POC Glucose 200 H (70-99) Calcium 7.4 L (8.5-10.1) mg/dl Phosphorus (2.5-4.9) mg/dl Total Creatine Kinase (39-308) U/L 05/06/19 05/06/19 05/06/19 Range/Units 11:46 09:01 08:57 WBC (4.8-10.8) K/uL RBC (4.7-6.1) M/uL Hgb (14.0-18.0) g/dL Hct (42-52) % MCV (80-100) fL MCH (25-34) pg MCHC (32-36) g/dL RDW Std Deviation (36.4-46.3) fL RDW Coeff of Katherine (11.5-14.5) % Plt Count (130-400) K/uL MPV (7.4-10.4) fL VBG pH 7.46 H (7.36-7.41) Sodium 139 (136-145) mmol/L Potassium 4.1 (3.5-5.1) mmol/L Chloride 99 (98-107) mmol/L Carbon Dioxide 29 (21-32) mmol/L Anion Gap 11.0 (3-11) BUN 77 H (7-18) mg/dl Creatinine 4.32 H D (0.6-1.4) mg/dl Est Cr Clr Drug Dosing 22.7 ml/min Est GFR ( Amer) 16.8 Est GFR (Non-Af Amer) 14.5 BUN/Creatinine Ratio 17.8 (10-20) Glucose 217 H (70-99) mg/dl POC Glucose 219 H (70-99) Calcium 6.6 L D (8.5-10.1) mg/dl Phosphorus 4.2 D (2.5-4.9) mg/dl Total Creatine Kinase (39-308) U/L Medications Administered Home Medications Medication Instructions Recorded Confirmed Last Taken albuterol sulfate [Ventolin HFA] 2 puff INHALATION QID PRN 05/05/19 05/05/19 Unknown amlodipine 10 mg PO DAILY 05/05/19 05/05/19 Unknown aspirin [Aspir-81] 81 mg PO DAILY 05/05/19 05/05/19 Unknown atorvastatin 40 mg PO HS 05/05/19 05/05/19 Unknown coenzyme Q10 200 mg PO DAILY 05/05/19 05/05/19 Unknown duloxetine 60 mg PO DAILY 05/05/19 05/05/19 Unknown empagliflozin 10 mg PO DAILY 05/05/19 05/05/19 Unknown fentanyl 1 patch TRANSDERMAL Q72H 05/05/19 05/05/19 05/03/19 folic acid 1 mg PO DAILY 05/05/19 05/05/19 Unknown gabapentin 600 mg PO TID 05/05/19 05/05/19 Unknown lisinopril 40 mg PO DAILY 05/05/19 05/05/19 Unknown multivitamin with minerals 1 tab PO DAILY 05/05/19 05/05/19 Unknown [Multiple Vitamin-Minerals] oxycodone-acetaminophen 1 tab PO Q8H PRN 05/05/19 05/05/19 Unknown oxymetazoline 1 spray INTRANASAL HS PRN 05/05/19 05/05/19 Unknown sitagliptin-metformin 1 tab PO BID 05/05/19 05/05/19 Unknown Active Medications Generic Name Dose Route Start Last Admin Trade Name Alberto PRN Reason Stop Dose Admin Bisacodyl 10 mg 05/06/19 14:29 05/06/19 14:37 Dulcolax ME 06/05/19 14:28 10 mg DAILY PRN Administration CONSTIPATION Fentanyl 25 mcg 05/06/19 09:00 05/06/19 09:15 Duragesic TD 05/20/19 08:59 25 mcg Q72H OPAL Administration Heparin Sodium (Porcine) 5,000 units 05/06/19 14:00 05/07/19 06:22 Heparin Sodium (Porcine) SQ 06/05/19 13:59 5,000 units Q8 OPAL Administration Folic Acid 1 mg/ Syringe 10 mls @ 5 mls/min 05/05/19 15:42 05/07/19 08:47 IV 06/04/19 15:41 5 mls/min DAILY@0900 OPAL Administration Thiamine HCl 100 mg/ Syringe 10 mls @ 2 mls/hr 05/05/19 15:42 05/07/19 08:47 IV 06/04/19 15:41 2 mls/hr DAILY@0900 OPAL Administration Piperacillin Sod/Tazobactam 115 mls @ 28.75 mls/hr 05/05/19 22:00 05/07/19 08:47 Sod 3.375 gm/ Dextrose IV 05/07/19 21:59 28.8 mls/hr Q12H OPAL Administration Protocol Insulin Aspart 0 units 05/07/19 07:30 05/07/19 08:47 Novolog Flexpen SC 06/06/19 07:29 1 units ACHS OPAL Administration Protocol Miscellaneous 1 ea 05/06/19 08:59 05/06/19 08:51 Fentanyl Patch Remove & Waste N/A 06/05/19 08:58 Not Given Q72H OPAL Miscellaneous 1 ea 05/06/19 16:00 05/07/19 08:49 Fentanyl Patch Check Placement N/A 06/05/19 15:59 1 ea QS OPAL Administration (1) Acute kidney failure Acute renal failure type: unspecified Qualified Code(s): N17.9 - Acute kidney failure, unspecified (2) Rhabdomyolysis Encounter type: initial encounter Rhabdomyolysis type: traumatic Qualified Code(s): T79.6XXA - Traumatic ischemia of muscle, initial encounter
--- NOTE | 2019-05-07 13:50 | Pharmacy Report ---
Pharmacy Glycemic Short Note 2 - Date of Service May 07, 2019 - Glycemic Short BSG Results (Last 24 hours): 05/06/19 05/06/19 05/06/19 16:13 17:05 20:16 Glucose 184 H POC Glucose 200 H 144 H 05/06/19 05/07/19 05/07/19 23:39 03:46 04:29 Glucose 136 H POC Glucose 134 H 132 H 05/07/19 05/07/19 08:41 11:41 Glucose POC Glucose 156 H 148 H OUTPATIENT ANTIDIABETIC REGIMEN: * Jardiance 10 mg daily (new within past month); Janumet 50/500 BID * A1c = 8.2 % 05/06/19 ASSESSMENT: 05/07 * Patient received 25 units of insulin yesterday (20 of this being basal) * Dextrose IVFs have been d/c'd and patient now transitioned to a type 2 diabetes diet * Fasting BSG = 136 mg/dL; higher dose of basal insulin given this AM since BSGs were higher yesterday and diet was advanced. Will order a scaled dose of Lantus BID to provide either stress of 1 or 2 per insulin calculator dosing. * Postprandial BSGs were higher yesterday but improved today. Will adjust Novolog parameters to be in line with basal requirements. 05/06 * 54 year old male with PMH including HTN, COPD, chronic pain, OLEKSANDR, and T2DM, alcohol abuse presented iwth increased lethargy and altered mental status * SCr significatnly elevated and underwent emergent dialysis, started on bicarb drip, decreased to 1/2NS +D5 + 75 meq Bicarb @150 today. * No plans for HD today, Scr improved to 2.99, Calcium improving with rep lacement * BSGs 150s on admission, elevated this morning into the 200s. Patient was NPO but receiving dextrose in fluids. Discussed starting insulin infusion (as 2 consecutive BSGs above 200) vs. basal/bolus management with care team, will utilize basal/bolus at this time. Started lantus conservatively at this time/ uncertain oral intake as patient begins to take clears/turning off bicarb drip. Tightened correction parameters to stress of 3- may need to back off if bicarb drip discontinued/patient begins to eat * A1c outpatient 8.2% above goal, additional medication jardiance added per notes within last month PLAN FOR INPATIENT GLYCEMIC CONTROL: * Continue to hold outpatient oral diabetes medications * Basal insulin - increase * Lantus SQ BID per the following scale: * 10 units for BSG 140 or less * 15 units for BSG > 140 * Bolus insulin - loosen CF, tighten CR * NovoLog per scale ACHS or Q6hrs while NPO * Goal Range: Low 110 mg/dL - High 150 mg/dL * Correction Factor: 20 mg/dL/unit * Nutritional / Prandial insulin per carb ratio of 1 unit per 8 grams CHO consumed PLAN FOR DISCHARGE: * A1c is above goal but patient just recently started the Jardiance * Recommend to continue outpatient regimen and f/u with outpatient provider on discharge
--- NOTE | 2019-05-07 15:35 | Hospitalist Progress Note ---
Date of Service May 07, 2019 Assessment & Plan (1) Metabolic acidosis: This is a 54-year-old male who has a significant PMH of HTN, HLD, T2DM, COPD, chronic pain syndrome on chronic opioid, OLEKSANDR, abnormal LFT, tobacco and alcohol abuser presents to [facility] secondary to altered mental status and lethargy and found to have Acute renal failure etiology with rhabdomyolysis Metabolic acidosis has resolved -resolved (2) Acute kidney failure: -admission creatinine of 13 -elevated creatinine has resolved with IV fluids on this admission -creatinine is 1.18 as of 05/07/19 -continue to monitor renal function (3) Rhabdomyolysis: -admission creatinine kinase 6880 -has trended down with IV fluids, last measured creatinine kinas 1820 on 05/07/19, trend creatinine kinase (4) Acute respiratory failure: -will de-escalate oxygen supplementation as patient's mental status has improved -Hypersomnia with sleep apnea: He was not using CPAP at home, will continue CPAP in hospital whenever he is asleep. recommend outpatient sleep study (5) Electrolyte abnormality: -admission hyperkalemia resolved with improved renal function -hypocalcemia - will check vitamin D levels (6) Prolonged QT interval: 05/06/19: QT corrected 528 -Continue to monitor -avoid qt prolonging agents (7) HTN (hypertension): -blood pressure controlled off amlodipine and lisinopril (8) HLD (hyperlipidemia): -Statin has been held because rhabdomyolysis and because of renal function Hepatic steatosis Cholelithiasis -CT Scan 05/05/19: The gallbladder is distended and there are calcified gallstones. Gallbladder wall thickening is nonspecific and may be related to chronic liver disease. Correlate with clinical findings and liver function studies for evidence of acute cholecystitis. Ultrasound should be considered for further assessment if clinically warranted. Liver ultrasound: IMPRESSION: 1. Cholelithiasis with mild gallbladder distention and gallbladder wall thickening. No definite pericholecystic fluid identified. Findings are equivocal for acute cholecystitis. Correlate clinically and possibly with hepatobiliary scan. 2. No biliary ductal dilation. 3. Hepatic steatosis. -patient was empirically on Zosyn on this admission in case of cholecystitis. but general surgery evaluation that thickening in his gallbladder is most likely chronic in nature as there does not appear to be any pericholecystic fluid or significant inflammation -Zosyn has been stopped on this admission, monitor off IV antibiotics -monitor liver enzymes (9) T2DM (type 2 diabetes mellitus): -On Van, Nataliia as outpatient -Hold all oral hypoglycemics -pharmacy for glycemic management using insulin (10) Chronic pain syndrome: -Continue fentanyl patch, last placed 05/03/19 - percocet for now (11) Alcohol abuse: -continue thiamine and folic acid (12) DVT prophylaxis: -SCDS FULL CODE STATUS Subjective Patient has been transferred out from ICU. Patient would like the valdez to be removed. denies acute pain. no acute shortness of breath. no vomiting. Physical Exam Constitutional: WD/WN, vitals as above Eyes: PERRL, conjunctivae normal, anicteric sclerae EOM intact bilaterally ENMT: external ear and nose normal, oropharynx normal Neck: trachea midline, no thyromegaly normal visual inspection Respiratory: normal respiratory effort, lungs clear to auscultation Cardiovascular: RRR, no murmur, no edema Gastrointestinal (Abdomen): normal bowel sounds, soft, nontender, no hepatosplenomegaly Musculoskeletal: Head/Neck/Chest: normocephalic and head atraumatic Neurologic: PERRL, EOMI, accommodation nl, no face palsy, no dysarthria CN's II-XI intact bilaterally Psychiatric: A+Ox3, euthymic affect Genitourinary: valdez draining urine Results & Data Vital Signs (Past 12 Hours) Vital Signs Pulse BP Pulse Ox 05/07/19 11:01 87 133/72 94 05/07/19 11:00 80 94 05/07/19 10:01 81 126/69 93 05/07/19 10:00 76 93 05/07/19 09:20 82 129/75 93 05/07/19 09:00 77 05/07/19 08:41 80 126/81 05/07/19 08:01 86 126/81 05/07/19 08:00 85 05/07/19 07:01 79 129/69 100 05/07/19 07:00 77 100 05/07/19 06:45 78 100 05/07/19 06:02 85 100 05/07/19 06:01 84 120/73 100 05/07/19 05:01 85 118/71 100 05/07/19 04:01 79 126/80 99 (1) Acute kidney failure Acute renal failure type: unspecified Qualified Code(s): N17.9 - Acute kidney failure, unspecified (2) Rhabdomyolysis Encounter type: initial encounter Rhabdomyolysis type: traumatic Qualified Code(s): T79.6XXA - Traumatic ischemia of muscle, initial encounter
[2019-05-07] MEDS: INSULIN GLARGINE SOLOSTAR 100 UNITS/ML 3 ML PEN SC SCH (21:05)
[2019-05-08] MEDS: OXYCODONE/ACETAMINOPHEN 5mg/325mg TAB PO PRN ×2 (00:17→07:44)
[2019-05-08] MEDS: CHECK FENTANYL PATCH PLACEMENT SCH ×2 (00:18→07:41)
[2019-05-08] MEDS: HEPARIN SOD 5,000 UNIT/0.5 ML VIAL SQ SCH ×2 (06:00→13:09)
[2019-05-08 06:37] LABS: Basophils # (auto) 0.03 K/uL (0-0.2); Basophils % (auto) 0.5 %; Eosinophils # (auto) 0.09 K/uL (0-0.5); Eosinophils % (auto) 1.4 %; Hematocrit (blood only) 34.9 % (42-52); Hemoglobin 11.9 g/dL (14.0-18.0); Immature Granulocytes # (auto) 0.01 K/uL (0.00-0.02); Immature Granulocytes % (auto) 0.2 %; Lymphocytes # (auto) 2.78 K/uL (1.2-3.4); Lymphocytes % (auto) 44.2 %; Mean Corpuscular Hgb Conc 34.1 g/dL (32-36); Mean Corpuscular Volume 93.6 fL (80-100); Mean Platelet Volume 9.5 fL (7.4-10.4); Monocytes % (auto) 11.1 %; Neutrophils # (auto) 2.68 K/uL (1.4-6.5); Neutrophils % (auto) 42.6 %; Platelet Count 106 K/uL (130-400); RDW Coefficient of Variation 14.1 % (11.5-14.5); RDW Standard Deviation 47.7 fL (36.4-46.3); Red Blood Count 3.73 M/uL (4.7-6.1); White Blood Count 6.29 K/uL (4.8-10.8)
[2019-05-08 07:07] LABS: Albumin Level 2.8 gm/dl (3.4-5.0); BUN Creatinine Ratio 28.3 (10-20); Calcium 8.3 mg/dl (8.5-10.1); Creatinine Clr Calc Pharmacy 113.8 ml/min; Est GFR (African American) 114.5; Est GFR (Non-African American) 98.8; Magnesium 2.1 mg/dl (1.8-2.4); Potassium 4.1 mmol/L (3.5-5.1)
[2019-05-08 07:11] LABS: Albumin Globulin Ratio 0.6 (0.9-2); Globulin 4.7 gm/dl (2.5-4.0); Phosphorus 2.7 mg/dl (2.5-4.9); Total Protein 7.5 gm/dl (6.4-8.2)
[2019-05-08] MEDS ORDERED: SODIUM CHLORIDE 0.9% 1000ML 1,000 ML IV SCH (07:45)
[2019-05-08] MEDS: INSULIN GLARGINE SOLOSTAR 100 UNITS/ML 3 ML PEN SC SCH (08:18)
[2019-05-08] MEDS: INSULIN ASPART 100 UNITS/ML 3 ML PEN SC SCH ×2 (08:22→12:08)
[2019-05-08] MEDS ORDERED: FOLIC ACID 1 MG TAB PO SCH (09:00)
[2019-05-08] MEDS ORDERED: THIAMINE HCL 100 MG TAB PO SCH (09:00)
[2019-05-08] MEDS ORDERED: CHOLECALCIFEROL (VITAMIN D) 400 UNITS TABLET PO SCH (12:30)
--- NOTE | 2019-05-08 13:03 | Hospitalist Progress Note ---
Date of Service May 08, 2019 Assessment & Plan (1) Metabolic acidosis: This is a 54-year-old male who has a significant PMH of HTN, HLD, T2DM, COPD, chronic pain syndrome on chronic opioid, OLEKSANDR, abnormal LFT, tobacco and alcohol abuser presents to [facility] secondary to altered mental status and lethargy and found to have Acute renal failure etiology with rhabdomyolysis Metabolic acidosis has resolved -resolved (2) Acute kidney failure: -admission creatinine of 13 -elevated creatinine has resolved with IV fluids on this admission -creatinine is 1.18 as of 05/07/19 -creatinine is normalized under 1 as of 05/08/19 -Discharge to home Follow up with primary care doctor 05/14/2019 1:20 PM Provider Roderick Zelaya MD [facility] Patient should avoid lisinopril medication until primary care doctor recheck renal function labs and blood pressure Patient should avoid atorvastatin medication until primary care doctor checks the creatinine kinase Patient should avoid excessive narcotic pain medications and discuss with primary care doctor on cutting down use of narcotics (3) Rhabdomyolysis: -admission creatinine kinase 6880 -has trended down with IV fluids, last measured creatinine kinas 1820 on 05/07/19, trend creatinine kinase -creatinine kinase is around 500 on 05/08/19 and additional IV fluids given -Patient should avoid atorvastatin medication until primary care doctor checks the creatinine kinase -Patient should avoid excessive narcotic pain medications and discuss with primary care doctor on cutting down use of narcotics (4) Acute respiratory failure: -Hypersomnia with sleep apnea: He was not using CPAP at home, will continue CPAP in hospital whenever he is asleep -outpatient sleep study as per ICU recommendations -hypoxia has resolved with improved mentation and patient transitioned to room air (5) Electrolyte abnormality: -admission hyperkalemia resolved with improved renal function -hypocalcemia: Patient should take vitamin D daily for vitamin D deficiency and hypocalemia (6) Prolonged QT interval: 05/06/19: QT corrected 528 -cardiac stable on telemetry during hospitalization (7) HTN (hypertension): -blood pressure controlled off amlodipine and lisinopril -may resume amlodipine as outpatient -Patient should avoid lisinopril medication until primary care doctor recheck renal function labs and blood pressure (8) HLD (hyperlipidemia): -Statin has been held because rhabdomyolysis and because of renal function Hepatic steatosis Cholelithiasis -CT Scan 05/05/19: The gallbladder is distended and there are calcified gallstones. Gallbladder wall thickening is nonspecific and may be related to chronic liver disease. Correlate with clinical findings and liver function studies for evidence of acute cholecystitis. Ultrasound should be considered for further assessment if clinically warranted. Liver ultrasound: IMPRESSION: 1. Cholelithiasis with mild gallbladder distention and gallbladder wall thick ening. No definite pericholecystic fluid identified. Findings are equivocal for acute cholecystitis. Correlate clinically and possibly with hepatobiliary scan. 2. No biliary ductal dilation. 3. Hepatic steatosis. -patient was empirically on Zosyn on this admission in case of cholecystitis. but general surgery evaluation that thickening in his gallbladder is most likely chronic in nature as there does not appear to be any pericholecystic fluid or significant inflammation -Zosyn has been stopped on this admission, and was monitored off IV antibiotics -no acute abdominal pain, outpatient follow up or liver and gallbladder (9) T2DM (type 2 diabetes mellitus): -pharmacy for glycemic management using insulin while inpatient -Patient has Hemoglobin A1c of 8.2. Patient may resume home oral diabetes medications and discuss with primary care doctor whether insulin may be needed in the future (10) Chronic pain syndrome: -Continue fentanyl patch, last placed 05/03/19 -patient also had percocet during hospitalization -patient appears generally pain free on discharge day -Patient should avoid excessive narcotic pain medications and discuss with primary care doctor on cutting down use of narcotics to avoid sedation and dehydration (11) Alcohol abuse: -was given thiamine and folic acid during hospitalization -Patient counseled against excessive use of alcohol (12) DVT prophylaxis: -SCDS FULL CODE STATUS Discharge Diagnosis Acute kidney failure (acute kidney injury), Hyperkalemia (resolved), Hypocalcemia, vitamin D deficiency, Metabolic encephalopathy (resolved), Hepatic steatosis, Cholelithiasis, Chronic pain syndrome, Alcohol abuse, muscle deconditioning Discharge Instructions Discharge to home Follow up with primary care doctor 05/14/2019 1:20 PM Provider Roderick Zelaya MD [facility] Patient should avoid lisinopril medication until primary care doctor recheck renal function labs and blood pressure Patient should avoid atorvastatin medication until primary care doctor checks the creatinine kinase Patient should avoid excessive narcotic pain medications and discuss with primary care doctor on cutting down use of narcotics Patient should avoid excessive use of alcohol Patient has Hemoglobin A1c of 8.2. Patient may resume home oral diabetes medications and discuss with primary care doctor whether insulin may be needed in the future Patient should take vitamin D daily for vitamin D deficiency and hypocalemia outpatient sleep study as per ICU recommendations Patient is ambulatory has some muscle deconditioning from hospital stay. he has prescription for outpatient physical therapy evaluate and treat Subjective Patient seen and examined at bedside. as per nurse, he has been ambulating. denies chest pain. denies abdominal pain. no shortness of breath. some muscle weakness but patient generally self-sufficient. no headache, no lightheadedness. we discussed discharge plans and follow ups Physical Exam Constitutional: WD/WN, vitals as above Eyes: PERRL, conjunctivae normal, anicteric sclerae EOM intact bilaterally ENMT: external ear and nose normal, oropharynx normal Neck: trachea midline, no thyromegaly normal visual inspection Respiratory: normal respiratory effort, lungs clear to auscultation Cardiovascular: RRR, no murmur, no edema Gastrointestinal (Abdomen): normal bowel sounds, soft, nontender, no hepatosplenomegaly Musculoskeletal: Head/Neck/Chest: normocephalic and head atraumatic Neurologic: PERRL, EOMI, accommodation nl, no face palsy, no dysarthria CN's II-XI intact bilaterally Psychiatric: A+Ox3, euthymic affect Results & Data Vital Signs (Past 12 Hours) Vital Signs Temp Pulse Pulse Pulse Resp BP BP 05/08/19 11:30 36.9 C 74 18 118/76 05/08/19 10:31 05/08/19 07:30 72 05/08/19 07:10 36.6 C 80 16 110/69 05/08/19 04:00 36.8 C 64 20 105/65 Pulse Ox 05/08/19 11:30 96 05/08/19 10:31 96 05/08/19 07:30 05/08/19 07:10 96 05/08/19 04:00 95 (1) Acute kidney failure Acute renal failure type: unspecified Qualified Code(s): N17.9 - Acute kidney failure, unspecified (2) Rhabdomyolysis Encounter type: initial encounter Rhabdomyolysis type: traumatic Qualified Code(s): T79.6XXA - Traumatic ischemia of muscle, initial encounter
--- NOTE | 2019-05-08 13:14 | Discharge Summary ---
Date of Service May 08, 2019 Admission HPI Per Admitting Provider This is a 54-year-old male who has a significant PMH of HTN, HLD, T2DM, COPD, chronic pain syndrome on chronic opioid, OLEKSANDR, abnormal LFT, tobacco and alcohol abuser presents to [facility] secondary to altered mental status and lethargy x1 day. ROS difficult/unable to obtain from patient given current state. Daughter at bedside provided most history. Per daughter family traveled to [place] on Sunday and patient was normal. He was complaining of back pain secondary to a twisting motion that caused increased pain but otherwise in his normal state of health. On Sunday patient became more c onfused. His fentanyl patch was changed on Sunday. His last alcoholic drink was Sunday. Family noticed difficulty talking, weakness "did not move from the couch." No recent falls or injury. Unsure if additional narcotics were taken, except daughter states he did take 2 of his Percocet on Sunday due to increased back pain. Daughter states his baseline is he is usually active, ambulates w/o assist device, is a daily 4 radha beer drinker. New medications include jardiance 10mg daily approx 2-3 weeks ago. Admission Exam Per Admitting Provider Gen: Critically ill, male, + increased resp drive, lying in bed, unable to answer questions approp Head: Normocephalic, Atraumatic Eyes: Sclera normal, no conjunctival injection, PERRLA, EOMI ENT: Gross hearing intact, normal pharynx, mucous membranes dry Neck: supple, no adenopathy, No JVD, no bruit, Resp: Clear to auscultation b/l, no wheeze, rales, rhonchi. increased insp/exp effort, no accessory muscle use CV: Regular rate, regular rhythm, 1/6 MER noted RUSB, no rub, gallop, or ectopy Abd: diminished BS x 4, distended, tender to palpation RUQ, firm Musculoskeletal: Extremities: trace to +1 pretibial edema bilaterally, b/l pedal pulses +1 and equal, b/l chronic venous stasis changes Skin: warm, moist, no rash, negative turgor, cap refill < 2sec Neuro: Alert and oriented x [address], not time, speech mostly normal but doesn't answer approp, cran nerve 2-12 intact grossly : +valdez with coca cola cololred urine Principal Diagnosis Acute kidney failure (acute kidney injury), Hyperkalemia (resolved), Hypocalcemia, vitamin D deficiency, Metabolic encephalopathy (resolved), Hepatic steatosis, Cholelithiasis, Chronic pain syndrome, Alcohol abuse, muscle deconditioning Discharge Data Allergies Allergy/AdvReac Type Severity Reaction Status Date / Time pregabalin Allergy Unknown Tremor Verified 05/05/19 13:11 Iodinated Contrast- Oral and AdvReac Unknown JITTERY Verified 05/05/19 13:11 IV Dye Consultations 05/05/19 13:48 ED Decision to Admit Stat 05/05/19 13:58 Consult Jewelry Technician Stat 05/05/19 14:20 Consult Jewelry Technician Routine 05/05/19 14:54 Consult General Surgery Routine 05/05/19 15:42 Consult Case Management - Discharge Planning Routine 05/05/19 19:43 Consult Nephrology Routine Ordered Studies 05/05/19 11:49 CT abd pelvis wo con Stat CT head/brain wo con Stat 05/05/19 14:52 US abdomen limited Stat Hospital Course (1) Metabolic acidosis: This is a 54-year-old male who has a significant PMH of HTN, HLD, T2DM, COPD, chronic pain syndrome on chronic opioid, OLEKSANDR, abnormal LFT, tobacco and alcohol abuser presents to [facility] secondary to altered mental status and lethargy and found to have Acute renal failure etiology with rhabdomyolysis Metabolic acidosis has resolved -resolved (2) Acute kidney failure: -admission creatinine of 13 -elevated creatinine has resolved with IV fluids on this admission -creatinine is 1.18 as of 05/07/19 -creatinine is normalized under 1 as of 05/08/19 -Discharge to home Follow up with primary care doctor 05/14/2019 1:20 PM Provider Roderick Zelaya MD Department [facility] Patient should avoid lisinopril medication until primary care doctor recheck renal function labs and blood pressure Patient should avoid atorvastatin medication until primary care doctor checks the creatinine kinase Patient should avoid excessive narcotic pain medications and discuss with primary care doctor on cutting down use of narcotics (3) Rhabdomyolysis: -admission creatinine kinase 6880 -has trended down with IV fluids, last measured creatinine kinas 1820 on 05/07/19, trend creatinine kinase -creatinine kinase is around 500 on 05/08/19 and additional IV fluids given -Patient should avoid atorvastatin medication until primary care doctor checks the creatinine kinase -Patient should avoid excessive narcotic pain medications and discuss with primary care doctor on cutting down use of narcotics (4) Acute respiratory failure: -Hypersomnia with sleep apnea: He was not using CPAP at home, will continue CPAP in hospital whenever he is asleep -outpatient sleep study as per ICU recommendations -hypoxia has resolved with improved mentation and patient transitioned to room air (5) Electrolyte abnormality: -admission hyperkalemia resolved with improved renal function -hypocalcemia: Patient should take vitamin D daily for vitamin D deficiency and hypocalemia (6) Prolonged QT interval: 05/06/19: QT corrected 528 -cardiac stable on telemetry during hospitalization (7) HTN (hypertension): -blood pressure controlled off amlodipine and lisinopril -may resume amlodipine as outpatient -Patient should avoid lisinopril medication until primary care doctor recheck renal function labs and blood pressure (8) HLD (hyperlipidemia): -Statin has been held because rhabdomyolysis and because of renal function Hepatic steatosis Cholelithiasis -CT Scan 05/05/19: The gallbladder is distended and there are calcified gallstones. Gallbladder wall thickening is nonspecific and may be related to chronic liver disease. Correlate with clinical findings and liver function studies for evidence of acute cholecystitis. Ultrasound should be considered for further assessment if clinically warranted. Liver ultrasound: IMPRESSION: 1. Cholelithiasis with mild gallbladder distention and gallbladder wall thickening. No definite pericholecystic fluid identified. Findings are equivocal for acute cholecystitis. Correlate clinically and possibly with hepatobiliary scan. 2. No biliary ductal dilation. 3. Hepatic steatosis. -patient was empirically on Zosyn on this admission in case of cholecystitis. but general surgery evaluation that thickening in his gallbladder is most likely chronic in nature as there does not appear to be any pericholecystic fluid or significant inflammation -Zosyn has been stopped on this admission, and was monitored off IV antibiotics -no acute abdominal pain, outpatient follow up or liver and gallbladder (9) T2DM (type 2 diabetes mellitus): -pharmacy for glycemic management using insulin while inpatient -Patient has Hemoglobin A1c of 8.2. Patient may resume home oral diabetes medications and discuss with primary care doctor whether insulin may be needed in the future (10) Chronic pain syndrome: -Continue fentanyl patch, last placed 05/03/19 -patient also had percocet during hospitalization -patient appears generally pain free on discharge day -Patient should avoid excessive narcotic pain medications and discuss with primary care doctor on cutting down use of narcotics to avoid sedation and dehyd ration (11) Alcohol abuse: -was given thiamine and folic acid during hospitalization -Patient counseled against excessive use of alcohol (12) DVT prophylaxis: -SCDS FULL CODE STATUS Discharge Diagnosis Acute kidney failure (acute kidney injury), Hyperkalemia (resolved), Hypocalcemia, vitamin D deficiency, Metabolic encephalopathy (resolved), Hepatic steatosis, Cholelithiasis, Chronic pain syndrome, Alcohol abuse, muscle deconditioning Discharge Instructions Discharge to home Follow up with primary care doctor 05/14/2019 1:20 PM Provider Roderick Zelaya MD [facility] Patient should avoid lisinopril medication until primary care doctor recheck renal function labs and blood pressure Patient should avoid atorvastatin medication until primary care doctor checks the creatinine kinase Patient should avoid excessive narcotic pain medications and discuss with primary care doctor on cutting down use of narcotics Patient should avoid excessive use of alcohol Patient has Hemoglobin A1c of 8.2. Patient may resume home oral diabetes medications and discuss with primary care doctor whether insulin may be needed in the future Patient should take vitamin D daily for vitamin D deficiency and hypocalemia outpatient sleep study as per ICU recommendations Patient is ambulatory has some muscle deconditioning from hospital stay. he has prescription for outpatient physical therapy evaluate and treat Total Time Total Time Spent Total Time Spent (In Minutes): 40 minutes Total Time Includes: Examination of the Patient, Discharge Planning, Medication Reconciliation and Communication With Other Providers Discharge Plan Discharge Items Patient Disposition: Home - Self-Care Reason For Visit: LUISITO Discharge Diagnosis: Acute kidney failure (acute kidney injury), Hyperkalemia (resolved), Hypocalcemia, vitamin D deficiency, Metabolic encephalopathy (resol sheila), Hepatic steatosis, Cholelithiasis, Chronic pain syndrome, Alchohol abuse, muscle deconditioning Condition: Good Discharge Goals: Improve disease control Activity: Resume your previous activity Non-emergency contact: Primary Care Provider Call non-emergency contact if: you have any medication questions Follow-up/Referrals: PCP,NO [Primary Care Provider] - Diet: Carb Consistent or DM2 Addtl Provider Instructions: Discharge to home Follow up with primary care doctor 05/14/2019 1:20 PM Provider Roderick Zelaya MD [facility] Patient should avoid lisinopril medication until primary care doctor recheck renal function labs and blood pressure Patient should avoid atorvastatin medication until primary care doctor checks the creatinine kinase Patient should avoid excessive narcotic pain medications and discuss with primary care doctor on cutting down use of narcotics Patient should avoid excessive use of alcohol Patient has Hemoglobin A1c of 8.2. Patient may resume home oral diabetes medic ations and discuss with primary care doctor whether insulin may be needed in the future Patient should take vitamin D daily for vitamin D deficiency and hypocalemia outpatient sleep study as per ICU recommendations Patient is ambulatory has some muscle deconditioning from hospital stay. he has prescription for outpatient physical therapy evaluate and treat Prescriptions: New cholecalciferol (vitamin D3) [Vitamin D3] 400 unit Tablet 400 unit PO QAM 30 Days Qty: 30 RF: 0 Continued aspirin [Aspir-81] 81 mg Tablet,Delayed Release (Dr/Ec) 81 mg PO DAILY RF: 0 amlodipine 10 mg Tablet 10 mg PO DAILY RF: 0 gabapentin 300 mg Capsule 600 mg PO TID RF: 0 folic acid 1 mg Tablet 1 mg PO DAILY RF: 0 multivitamin with minerals [Multiple Vitamin-Minerals] Tablet 1 tab PO DAILY RF: 0 fentanyl 25 mcg/hr Patch 72 Hour 1 patch TRANSDERMAL Q72H RF: 0 albuterol sulfate [Ventolin HFA] 90 mcg/actuation Hfa Aerosol Inhaler 2 puff INHALATION QID PRN (Reason: sob) RF: 0 oxymetazoline 0.05 % [place],Non-Aerosol 1 spray INTRANASAL HS PRN (Reason: congestion) RF: 0 duloxetine 60 mg Capsule,Delayed Release(Dr/Ec) 60 mg PO DAILY RF: 0 coenzyme Q10 200 mg Capsule 200 mg PO DAILY RF: 0 sitagliptin-metformin 50-500 mg Tablet 1 tab PO BID RF: 0 empagliflozin 10 mg Tablet 10 mg PO DAILY RF: 0 Discontinued atorvastatin 40 mg Tablet 40 mg PO HS RF: 0 oxycodone-acetaminophen 10-325 mg Tablet 1 tab PO Q8H PRN (Reason: Pain) RF: 0 lisinopril 40 mg Tablet 40 mg PO DAILY RF: 0 Stand-Alone Forms: [facility] Discharge Orders: Discharge Order (Routine); Ordered 05/08/19 Ordered By: Eliu Matthews Admission Data Admit Date/Time: 05/05/19 14:22 Attending Provider: Eliu Matthews Admit Provider: Mamadou Parker Primary Care Provider: PCP,NO Other Providers: Saulo Kerns ; Mamadou Parker ; Mauro Barrera ; Zoraida Valero Service: Telemetry Medical
[2019-05-08 22:49] LABS: Hydrocodone Urine NEGATIVE NG/ML (CUTOFF=50); Hydromor Urine NEGATIVE NG/ML (CUTOFF=50); Morphine Urine NEGATIVE NG/ML (CUTOFF=50); Norhydrocodone Conf Ur NEGATIVE NG/ML (CUTOFF=50); Noroxycodone Urine 8970 NG/ML (CUTOFF=50); Oxycodone Urine >20000 NG/ML (CUTOFF=50)
== END 2019-05-08 15:53 | disposition home or self-care (01) | DRG 682 ==
LOC: ED 11:36 → 1E 14:22 → SUATTDRO 14:22 → 1E 15:04 → 2W 05-07 11:28